=== PATIENT | male | born 1955 | race Caucasian/White ===

== ENCOUNTER → 2021-05-13 08:49 | Outpatient (CLI) | payer BC, SELFPAY ==
--- NOTE | 2021-05-13 08:53 | RAD_ITS ---
STUDY: X-RAY - ESOPHAGUS (BARIUM SWALLOW) WITH FLUOROSCOPY REASON FOR EXAM: Male, 65 years old. DYSPHAGIA. TECHNIQUE: 15 view(s) of the esophagus were obtained following swallowing of barium. FLUOROSCOPY TIME (if supplied): (30 seconds) minutes/seconds COMPARISON: None. FINDINGS: There is no demonstrated esophageal foreign body. There is no demonstrated stricture or mucosal abnormality. Normal gastroesophageal junction, without a demonstrated hiatal hernia. The patient ingested a 12 mm tablet of barium without any difficulty. There is atherosclerotic tortuosity of the aortic arch and descending thoracic aorta. Normal visualized pulmonary parenchyma. Normal visualized osseous structures of the thorax. RAD/Esophagus Single Contrast IMPRESSION: Normal plain film x-ray examination (barium swallow) of the esophagus. Electronically Signed: Carlos Apple MD at 14:30 EST , Service support ,
== END ==
PROVIDERS: PCP Internal Medicine; Referring Provider Internal Medicine; Visit Provider Internal Medicine
DX: R13.19 Other dysphagia (principal)
CPT/HCPCS: 74220

== ENCOUNTER 2022-10-16 06:05 | Day surgery (SDC) | payer BC, SELFPAY ==
[2022-10-16] MEDS: Lactated Ringers 1,000 ML 15 ML IV (06:37)
[2022-10-16 06:38] VITALS: BP 134/90; PULSE 60; RESP 18; TEMP 36.4; O2SAT 98; BMI 28.1
--- NOTE | 2022-10-16 07:10 | HP.PCM_ITS ---
History and Physical Date of Admission: 10/16/22 6 M who presents to the office today to establish with gastroenterology for dysphagia began over a year ago.? Food will stick in the mid to distal esophagus sometimes, he has to sit up straight and follow the food with lots of water.? The food has always passed, no emergency visits for food bolus.? Chicken and pasta are the primary culprits.? He has never regurgitated to get this to pass.? He never has nausea or vomiting.? He never has heartburn or acid reflux.? No pain other than discomfort when the food is stuck.? No cough.? No sense of esophageal spasms.? No abdominal pain.? No early satiety.? Normal appetite.? No weight loss.? He has never been on medication for this dysphagia.? He had a normal esophagram in April 2021.? He has never had an EGD.? No bowel complaints.? He denies diarrhea, constipation, melena, hematochezia. Colonoscopy 01/2020, told to repeat in 5 years Past medical history hypertension, tubular adenoma of colon, remote history of kidney stones, essential tremor Past surgical history cataracts, tonsillectomy ROS Const Constitutional: No fatigue, fever(s), frequent falls, headache(s) or weight change ENT ENT: No headache(s) or difficulty swallowing Cardio Cardiology: No leg pain with exertion Gastro GI: No abdominal pain, bloating, change in bowel habits, constipation, diarrhea, heartburn, difficulty swallowing, Vomiting blood/hematemesis, Blood in stool, nausea/dyspepsia or vomiting Musc Musculoskeletal: No abnormal gait, joint pain, back pain, joint swelling, muscle cramps, muscle weakness, numbness, stiffness, tingling, Arthritis, sciatica, leg pain at night or leg pain with exertion Skin Skin: No dry skin, lesions, itchy eyes or rash Neuro Neurology: No abnormal gait, dizziness, frequent falls, headache(s), numbness, tingling, tremor(s), Increased tone in limbs, paralysis or seizures Psych Psychiatric: No anxiety, No depression, No paranoia, No Behavioral Problems, No Compulsive Behavior, No hyperactivity, No inattentiveness, No obsessions/compulsions, No Temper Tantrums and No suicidal ideation Endo Endocrine: No fatigue or weight change Aller/Imm Allergy/Immunologic: No itchy eyes Jonatan/Lymp Hematologic/Lymphatic: No easy bleeding or easy bruising Exam Const General: cooperative, healthy appearing and comfortable Nutritional Appearance: average body habitus Orientation: alert, awake and oriented x3 HENMT Head: normal to inspection Eyes Sclera: sclerae normal Neck Neck: normal visual inspection Chest Chest palpation & inspection: normal inspection of the chest Resp Effort & Inspection: normal respiratory effort GI Inspection: normal to inspection Neuro Speech: other (there is a tremor to his voice) Quality Reporting Tobacco Screening ([facility]) Smoking Status: Former smoker Assessment and Plan Assessment and Plan (1) Dysphagia: ?Plan: 66-year-old male with chronic dysphagia.? He is scheduled for EGD to evaluate for esophagitis, Schatzki ring, malignancy or other.? We discussed the possibility of starting a PPI now but since he has no symptoms other than the dysphagia, and it is stable, he prefers to wait.? Follow-up 2 weeks after EGD. I have examined the patient and the H&P has been reviewed. There are no clinical changes since date of exam.
--- NOTE | 2022-10-16 07:15 | IMM_PTH ---
PATIENT: WAYNE ESTRADA LOC: EN U#:[id number] AGE/SX: 66/M ROOM: RE10/16/[address]: Dr. Colt Lewis DO : 1955 BED: DIS: 10/16/2022 SPEC #: [id number] RECD: 10/16/22 13:53 STATUS: MIKE REQ #: [id number] ISIDRO: 10/16/22 07:[address]: Colt Lewis DEPT: IMMUNOHISTOCHEMISTRY RECD BY: Nancy Oates ENTERED: 10/16/22 13:54 SP TYPE: IMMUNO OTHR DR: Dr. Prashanth Mcintyre MD Tissues: B - Stomach, NOS Procedures: H Pylori (initial) PHYSICIAN & INSTITUTION [address] [address] SPECIMEN INFORMATION: Tissue Source: B ? Gastric antrum Clinical Info: Dysphagia Specimen Number: [id number] CPT code: 74302 METHODOLOGY: Deparaffinized sections of prefer/formalin-fixed tissue or PAP/DQ stained slides are incubated with monoclonal/polyclonal antibodies/oligonucleotide probes. Localization is made via biotin free immunoperoxidase method. Appropriate controls are performed and reacted as expected. Results on target cell population are indicated in the following table: RESULTS: ANTIBODY / CLONE RESULT Block B H Pylori (polyclonal) negative These tests were developed and their performance characteristics determined by [facility]. They may not have been cleared or approved by the U.S. Food and Drug Administration. The FDA has determined that such clearance or approval is not necessary. The above immunohistochemical/dualISH markers are ordered and reviewed by the Pathologist. INTERPRETATION: B. Gastric antrum, biopsy: Negative for Helicobacter pylori organisms. AM:annemarie 10/17/2022
--- NOTE | 2022-10-16 07:15 | EGD_PTH ---
PATIENT: WAYNE ESTRADA LOC: EN U#:[id number] AGE/SX: 66/M ROOM: RE10/16/[address]: Dr. Colt Lewis DO : 1955 BED: DIS: 10/16/2022 SPEC #: [id number] RECD: 10/16/22 10:41 STATUS: MIKE MEMO #: [id number] ISIDRO: 10/16/22 07:[address]: Colt Lewis DEPT: SURGICAL PATHOLOGY RECD BY: Nury Lee ENTERED: 10/16/22 12:17 SP TYPE: EGD BIOPSY [facility] DR: Dr. Prashanth Mcintyre MD Tissues: A - COLON BIOPSY B - Gastric mucous membrane C - Duodenum, NOS D - Esophagus, NOS Procedures: Special Stain Group II Surgery Specimen Level IV Alcian Blue/PAS (control) HEADER OPERATION: EGD with biopsy and dilation (MAC) PRE-OP DIAGNOSIS: Dysphagia TISSUE SUBMITTED: A ? Lesser curvature biopsy, B ? Gastric antrum for H. pylori and path, C ? Duodenum biopsy, D ? Distal esophagus biopsy MICROSCOPIC DIAGNOSIS A. Lesser curvature of stomach, biopsy: Chronic active gastritis. B. Gastric antrum, biopsy: Chronic gastritis. See comment. C. Duodenum, biopsy: No pathologic change. D. Distal esophagus, biopsy: Gastroesophageal junctional mucosa with chronic inflammation. Focal changes of reflux. No evidence of goblet cell metaplasia. See comment. AM:annemarie 10/17/2022 COMMENT B. The results of immunohistochemistry for Helicobacter pylori will be reported separately ([id number]). D. Alcian blue/PAS stain with matched control supports the above diagnosis. MICROSCOPIC DESCRIPTION Slides are reviewed. GROSS DESCRIPTION A - Received in fixative is one container labeled with the patient's name and designated lesser curvature of stomach. The specimen consists of two irregular fragments of light haque soft tissue that in aggregate measure 0.8 x 0.3 x 0.1 cm. The specimen is totally submitted in one cassette. B - Received in fixative is one container labeled with the patient's name and designated gastric antrum. The specimen consists of two irregular fragments of light haque soft tissue that in aggregate measure 0.6 x 0.6 x 0.1 cm. The specimen is totally submitted in one cassette. C - Received in fixative is one container labeled with the patient's name and designated duodenum biopsy. The specimen consists of one irregular fragment of light haque soft tissue that measures 0.6 x 0.5 x 0.1 cm. The specimen is totally submitted in one cassette. D - Received in fixative is one container labeled with the patient's name and designated distal esophagus. The specimen consists of multiple irregular fragments of light haque soft tissue that in aggregate measure 0.7 x 0.5 x 0.1 cm. The specimen is totally submitted in one cassette. / AM:annemarie 10/16/2022 TC:3 CPT: 41664 x4, 69914
[2022-10-16 07:40] VITALS: BP 122/93; BP 134/90; PULSE 70; RESP 16; TEMP 36.3; O2SAT 94
--- NOTE | 2022-10-16 07:44 | OP.EGD_ITS ---
Patient Name: Aiden Magana Procedure Date: 10/16/2022 7:12 AM Date of : 1955 Age: 66 Procedure: Upper GI endoscopy Indications: Dysphagia Providers: Colt Lewis DO Medicines: Monitored Anesthesia Care Patient Profile: This is a 66 year old male. Refer to note in patient chart for documentation of history and physical. Patient has symptoms. Complications: No immediate complications. Procedure: Pre-Anesthesia Assessment: - Prior to the procedure, a History and Physical was performed, and patient medications and allergies were reviewed. The patient is competent. The risks and benefits of the procedure and the sedation options and risks were discussed with the patient. All questions were answered and informed consent was obtained. Patient identification and proposed procedure were verified by the physician in the pre-procedure area. Mental Status Examination: alert and oriented. Airway Examination: normal oropharyngeal airway and neck mobility. CV Examination: normal. Prophylactic Antibiotics: The patient does not require prophylactic antibiotics. Prior Anticoagulants: The patient has taken no previous anticoagulant or antiplatelet agents. After reviewing the risks and benefits, the patient was deemed in satisfactory condition to undergo the procedure. The anesthesia plan was to use monitored anesthesia care (MAC). Immediately prior to administration of medications, the patient was re-assessed for adequacy to receive sedatives. The heart rate, respiratory rate, oxygen saturations, blood pressure, adequacy of pulmonary ventilation, and response to care were monitored throughout the procedure. The physical status of the patient was re-assessed after the procedure. After obtaining informed consent, the endoscope was passed under direct vision. Throughout the procedure, the patient's blood pressure, pulse, and oxygen saturations were monitored continuously. The Endoscope was introduced through the mouth, and advanced to the second part of duodenum. The upper GI endoscopy was accomplished without difficulty. The patient tolerated the procedure well. Scope In: 7:24:13 AM Scope Out: 7:33:49 AM Total Procedure Duration Time 0 hours 9 minutes 36 seconds Findings: A non-bleeding diverticulum with a small opening and no stigmata of recent bleeding was found at the cricopharyngeus. One benign-appearing, intrinsic stenosis was found 20 to 21 cm from the incisors. This stenosis was moderately severe and. The stenosis was traversed. LA Grade B (one or more mucosal breaks greater than 5 mm, not extending between the tops of two mucosal folds) esophagitis with no bleeding was found 36 to 39 cm from the incisors. Biopsies were taken with a cold forceps for histology. Verification of patient identification for the specimen was done. Estimated blood loss was minimal. Patchy moderate inflammation characterized by erosions, erythema, friability and aphthous ulcerations was found in the gastric body, on the lesser curvature of the stomach and in the gastric antrum. Biopsies were taken with a cold forceps for histology. Verification of patient identification for the specimen was done. Estimated blood loss was minimal. Patchy moderate inflammation characterized by erosions and erythema was found in the duodenal bulb. Biopsies were taken with a cold forceps for histology. Verification of patient identification for the specimen was done. Estimated blood loss was minimal. 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 - Benign-appearing esophageal stenosis. - LA Grade B reflux esophagitis. Biopsied. - Chronic gastritis. Biopsied. - Duodenitis. Biopsied. Recommendation: - Discharge patient to home. - Resume previous diet. - Continue present medications. - Await pathology results. Procedure Code(s): --- Professional --- 22942, Esophagogastroduodenoscopy, flexible, transoral; with biopsy, single or multiple CPT copyright 2017 [employer]. All rights reserved. The codes documented in this report are preliminary and upon university extension specialist review may be revised to meet current compliance requirements. Colt Lewis DO 10/16/2022 7:44:18 AM This report has been signed electronically. Number of Addenda: 0 Note Initiated On: 10/16/2022 7:12 AM
[2022-10-16 07:45] VITALS: BP 134/90; BP 141/92; PULSE 75; RESP 16; O2SAT 95
--- NOTE | 2022-10-16 07:45 | OP.CCLET_ITS ---
10/16/2022 Prashanth Mcintyre [address] [place] [address] Re : Upper GI endoscopy procedure for Aiden Magana Dear Dr. Mcintyre This procedure was performed on October. 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 - Benign-appearing esophageal stenosis. - LA Grade B reflux esophagitis. Biopsied. - Chronic gastritis. Biopsied. - Duodenitis. Biopsied. Recommendations : - Discharge patient to home. - Resume previous diet. - Continue present medications. - Await pathology results. My findings are described in the full procedure note, which is enclosed. If I can be of further assistance, please feel free to contact me at . Sincerely, Colt Lewis, 10/16/2022 7:44:18 AM This report has been signed electronically.
[2022-10-16 07:50] VITALS: BP 134/90; BP 135/95; PULSE 72; RESP 16; O2SAT 97
[2022-10-16 07:55] VITALS: BP 134/90; BP 141/91; PULSE 67; RESP 16; TEMP 36.1; O2SAT 94
[2022-10-16 08:20] VITALS: BP 134/90
== END 2022-10-16 08:23 | disposition home or self-care (01) ==
LOC: EN 06:06 → AC 06:07
PROVIDERS: PCP Internal Medicine; Referring Provider Internal Medicine Gastroenterology; Visit Provider Internal Medicine Gastroenterology
PROC: 0DJ08ZZ Inspection of Upper Intestinal Tract, Via Natural or Artificial Opening Endoscopic (ICD-10-PCS; CPT 43235; principal; 2022-10-16 07:10)
DX: K22.2 Esophageal obstruction (principal); Z87.891 Personal history of nicotine dependence; K29.50 Unspecified chronic gastritis without bleeding; R13.10 Dysphagia, unspecified; K21.00 Gastro-esophageal reflux disease with esophagitis, without bleeding; K29.80 Duodenitis without bleeding; I10 Essential (primary) hypertension
CPT/HCPCS: 43239; 88305; 88313; 88342; J7120

== ENCOUNTER 2025-04-03 03:06 | Emergency (ER) | payer MEDICARE, SELFPAY ==
[2025-04-03 03:07] VITALS: BP 147/97; PULSE 80; RESP 16; TEMP 36.6; O2SAT 98; BMI 26.3
--- NOTE | 2025-04-03 03:23 | CT_ITS ---
PROCEDURE: ABDOMEN/PELVIS W IV CONT ONLY 04/03/2025 REASON FOR EXAM: LOWER ABD PAIN TECHNIQUE: Procedure Code: [id number] Modality: CT Procedure: ABDOMEN/PELVIS W IV CONT ONLY Coronal and Sagittal reconstruction series were provided. CONTRAST: OMNIPAQUE 350 VOLUME: 100 mL One or more dose reduction techniques were used (e.g., Automated exposure control, adjustment of the mA and/or kV according to patient size, use of iterative reconstruction technique. RADIATION DOSE SUMMARY: CTDlvol: 20.05 mGy DLP: 1107 mGycm COMPARISON: None. FINDINGS: Diffuse colonic diverticulosis. Thickening of the mid aspect of the sigmoid colon suggestive of acute diverticulitis without perforation or abscess formation. Mild prostatomegaly. Mild diffuse thickening of the bladder, probably chronic bladder outlet obstruction versus cystitis. Scattered calcified splenic granulomas are noted. Diffuse thickening of the stomach, probably gastritis. Fat containing umbilical hernia without incarceration. 3 mm left renal nonobstructing stone. The visualized lung bases are unremarkable. Normal liver. Normal gallbladder and extrahepatic biliary system. Normal pancreas. Normal bilateral adrenal glands. Normal size of the right kidney. There is no right renal mass. There are no right renal calculi. There is no right hydronephrosis. Normal visualized right ureter. Normal size of the left kidney. There is no left renal mass. There is no left hydronephrosis. Normal visualized left ureter. Normal small intestine. The appendix is visualized and appears normal. There is no demonstrated peritoneal fluid. Mild calcified atheromatous plaques of the abdominal aorta. Normal inferior vena cava. Normal retroperitoneum. There is no pelvic mass lesion or lymphadenopathy. There is no pelvic fluid. Mild diffuse spondylosis. CT/Abdomen/Pelvis W IV Cont ONLY IMPRESSION: Diffuse colonic diverticulosis. Thickening of the mid aspect of the sigmoid colon suggestive of acute diverticu litis without perforation or abscess formation. Mild prostatomegaly. Mild diffuse thickening of the bladder, probably chronic bladder outlet obstruc tion versus cystitis. Scattered calcified splenic granulomas are noted. Diffuse thickening of the stomach, probably gastritis. Fat containing umbilical hernia without incarceration. 3 mm left renal nonobstructing stone. Reading [facility] [address]
--- NOTE | 2025-04-03 03:23 | EDS_ITS ---
HPI HPI - GI History of Present Illness Chief Complaint: Abd Pain Narrative Narrative: Patient is a 69-year-old male presenting to the emergency department for lower abdominal pain that started yesterday. Patient has a past medical history of hypertension, hyperlipidemia, esophageal dysphagia, reflux esophagitis and tubular adenoma of the colon. Patient states that the pain is constant however will wax and wane and become worse at times. He endorses chills. Denies fever. Denies chest pain, shortness of breath, nausea, vomiting, dysuria or hematuria. Denies any scrotal swelling, redness or pain. Denies any penile swelling or discharge. Reports his last bowel movement was yesterday and has not had a bowel movement today but states that his bowel movement yesterday was normal. States that he is here now because he could not get comfortable when trying to go to sleep which caused him to want to be evaluated. Denies taking anything for pain prior to arrival. Denies any history of abdominal surgeries in the past. [facility] Medical History Wears glasses High cholesterol Difficulty swallowing Non-smoker Leg cramps History of irregular heartbeat History of rheumatic fever HTN (hypertension) HLD (hyperlipidemia) Frequent headaches Essential tremor Calculus of kidney Tubular adenoma of colon Esophageal dysphagia Home Medications ?Medication ?Instructions ?Recorded ?Last Taken ?Type atorvastatin 20 mg tablet 20 mg PO DAILY 05/19/22 Unkn own History doxazosin 1 mg tablet (Cardura) 1 mg PO DAILY 05/19/22 Unknown History lisinopril 5 mg tablet 5 mg PO DAILY 05/19/22 Unkno wn History lutein 20 mg capsule 20 mg PO DAILY 05/19/22 Unkn own History multivitamin 1 tab PO DAILY 05/19/22 Unkn own History omega-3 fatty acids 1,000 mg 1,000 mg PO DAILY 2 10/11/22 History capsule propranolol 10 mg tablet 10 mg PO BID 05/19/22 Unknow n History pantoprazole 40 mg tablet,delayed 40 mg PO BID #60 tab s 10/16/22 Unknown Rx release amoxicillin 875 mg-potassium 1 tab PO Q12H 7 days #14 tabs 04/03/25 Unknown Rx clavulanate 125 mg tablet Allergy/AdvReac Type Severity Reaction Status Date / Time No Known Allergies Allergy Verified 04/03/25 03:06 Family History Mother Hypertension Father Hypertension Prostate cancer Brother Hypertension Diabetes CAD (coronary artery disease) Afib Uterine fibroid Surgical History Hx of colonoscopy Hx of tonsillectomy H/O bilateral cataract extraction Social History Smoking Status: Former smoker alcohol intake: never substance use type: does not use caffeine: No ROS ROS ED ROS Narrative see HPI EXAM Physical Exam Narrative Exam Narrative: Vital signs: Reviewed General: Alert and orientedx3. No acute distress HEENT: Head is normocephalic and atraumatic, sinuses nontender, pupils equal round and reactive. Nares are patent. Oropharynx and throat exams normal. Neck: Supple without lymphadenopathy nontender Cardiovascular: Regular rate and rhythm, no murmurs. No rubs or gallops. Normal S1 and S2 Respiratory: Clear to auscultation bilaterally. No wheezes, rales, rhonchi Abdominal: Soft and mildly tender to palpation in suprapubic and RLQ. Normal bowel sounds. No guarding or rebound. Nonsurgical abdomen Extremities: No tenderness. No bruising. Normal range of motion. Normal sensation. Skin: No rash or redness. Neurological: Cranial nerves II through XII are grossly intact. Normal strength and sensation. Normal cerebellar function The rest of the physical exam is unremarkable Const Vital Signs: 04/03/25 03:07 Temperature 97.8 F Temperature Source Oral Pulse Rate 80 Respiratory Rate 16 Blood Pressure 147/97 H Blood Pressure Mean 113 Pulse Ox 98 Oxygen Delivery Method Room Air MDM MDM MDM Narrative Medical decision making narrative: Patient is a 69-year-old male presenting the emergency department for abdominal pain for 1 day. Patient was seen and examined. Vitals are stable. Patient resting in bed comfortably no acute distress. Differential includes but is not limited to: Appendicitis, UTI, colitis, diverticulitis, obstruction Patient given Toradol for pain control. Labs and CT imaging given patient's age and tenderness on exam were obtained. CBC with mild leukocytosis of 13 and normal hemoglobin. CMP with no significant abnormalities. Lipase within normal limits. CT of the abdomen pelvis shows diffuse colonic diverticulosis. Thickening of the mid aspect of the sigmoid colon suggestive of acute diverticulitis without perforation or abscess formation. Mild prostatomegaly. Mild diffuse thickening of the bladder, probably chronic bladder outlet obstruction versus cystitis. Scattered calcified splenic granulomas are noted. Diffuse thickening of the stomach, probably gastritis. Fat containing umbilical hernia without incarceration. 3 mm left renal nonobstructing stone. Patients lower abd pain likely caused by his diverticulitis. Will be placed on Augmentin. Urinalysis shows no evidence of UTI. Patient and family at bedside updated on the lab and imaging findings. Stable for outpatient management for simple uncomplicated diverticulitis with mild leukocytosis. Well-appearing, nontoxic. Verified with patient that he is taking pantoprazole but states he is taking it once a day I recommend taking it twice a day and following up with GI. Patient discharged from the Emergency Department. I do not feel that the patient's evaluation reveals any acute reason for admission at this time. I instructed them to either follow-up with their primary care physician or promptly return to the Emergency Department for reevaluation should symptoms worsen or new symptoms develop. I explained what symptoms would indicate the need to return to the emergency department. Shared decision making was used. The patient voiced understanding of the treatment plan and is agreeable with it. Clinical impression Diverticulitis Gastritis History & Record Review Discussion w/independent historian: Patient and Family Lab Data Attestation: I reviewed the patient's lab results. Labs: Laboratory Results - last 24 hr 04/03/25 04/03/25 03:10 04:35 WBC 13.0 H RBC 4.86 Hgb 15.0 Hct 42.8 MCV 88.1 MCH 30.9 MCHC 35.0 RDW Std Deviation 38.6 RDW Coeff of Mck[place] 11.9 Plt Count 214 MPV 10.7 Immature Gran % (Auto) 0.200 Neut % (Auto) 80.4 H Lymph % (Auto) 8.9 L [place] % (Auto) 8.9 Eos % (Auto) 1.1 Baso % (Auto) 0.5 Absolute Neuts (auto) 10.5 H Absolute Lymphs (auto) 1.16 Nucleated RBC % 0 Sodium 137 Potassium 3.9 Chloride 102 Carbon Dioxide 22.6 Anion Gap 13 BUN 17 Creatinine 0.95 Estim Creat Clear Calc 75.96 Est GFR (MDRD) Non-Af 86 BUN/Creatinine Ratio 17.5 Glucose 144 H Calcium 9.1 Total Bilirubin 0.97 AST 20 ALT 32 Alkaline Phosphatase 69 Total Protein 6.8 Albumin 4.3 Globulin 2.6 Albumin/Globulin Ratio 1.7 Lipase 32 Urine Color Yellow Urine Clarity Clear Urine pH 6.0 Ur Specific [place] 1.010 Urine Protein 30 H Urine Glucose (UA) Normal Urine Ketones Negative Urine Occult Blood 10 H Urine Nitrite Negative Urine Bilirubin Negative Urine Urobilinogen Normal Ur Leukocyte Esterase Negative Urine RBC 0 SEEN Urine WBC 0-5 SEEN Ur Squamous Epith Cells 0-5 SEEN Urine Bacteria 0 SEEN Urine Mucus 0 SEEN Radiography Diagnostic Testing: Clinical Impression(s) from Imaging Studies Abdomen/Pelvis CT 04/03/25 03:23 IMPRESSION: Diffuse colonic diverticulosis. Thickening of the mid aspect of the sigmoid colon suggestive of acute diverticulitis without perforation or abscess formation. Mild prostatomegaly. Mild diffuse thickening of the bladder, probably chronic bladder outlet obstruction versus cystitis. Scattered calcified splenic granulomas are noted. Diffuse thickening of the stomach, probably gastritis. Fat containing umbilical hernia without incarceration. 3 mm left renal nonobstructing stone. Reading Location: [place] [id number] Discharge Plan Triage Chief Complaint: Abd Pain ED Provider: Marychuy Lin Dx/Rx/DC Orders Clinical Impression: Diverticulitis, Gastritis Instructions: Diverticulitis Dc, ED Gastritis (Adult) Prescriptions: New amoxicillin-pot clavulanate 875-125 mg tablet 1 tab PO Q12H 7 Days Qty: 14 0RF No Action lisinopril 5 mg tablet 5 mg PO DAILY atorvastatin 20 mg tablet 20 mg PO DAILY doxazosin [Cardura] 1 mg tablet 1 mg PO DAILY multivitamin Tablet 1 tab PO DAILY omega-3 fatty acids 1,000 mg capsule 1,000 mg PO DAILY lutein 20 mg capsule 20 mg PO DAILY Rx Instructions: give with meal/snack propranolol 10 mg tablet 10 mg PO BID pantoprazole 40 mg tablet,delayed release (DR/EC) 40 mg PO BID Qty: 60 3RF Primary Care Provider: Prashanth Mcintyre Referrals: Prashanth Mcintyre MD [Primary Care Provider, Internal Medicine] - As soon as possible Activity Restrictions/Additional Instructions: Take the antibiotic as prescribed. Your evaluation in the Emergency Department did not reveal any acute reason for admission. However, I want to emphasize that you may be early in the course of a disease process or illness even if it is not present. For this reason you should follow-up within 24 hours for reevaluation with either your primary care physician or if necessary back here in the Emergency Department. You should return to the Emergency Department immediately if your symptoms worsen or new symptoms develop. Print Language: Colombian Disposition Disposition: Home, Self Care
[2025-04-03 03:36] LABS: Hematocrit 42.8 % (40-54); Hemoglobin 15.0 g/dL (13.0-16.5); Immature Granulocytes Count 0.030 X10^3/uL (0.0-0.0); Mean Corp Hgb Conc 35.0 g/dL (32-36); Mean Corpuscular Volume 88.1 fL (80-94); Mean Platelet Vol. 10.7 fl (6.2-12.0); NRBC Flagged by Analyzer 0 % (0-5); Platelet Count 214 K/mm3 (150-450); RBC Distribution Width CV 11.9 % (11.6-14.6); RBC Distribution Width SD 38.6 fl (35.1-43.9); Red Blood Count 4.86 M/mm3 (4.6-6.2); White Blood Count 13.0 K/mm3 (4.4-11.0)
[2025-04-03 03:48] LABS: AST(SGOT) 20 U/L (<=37); Alanine Aminotransfer ALT/SGPT 32 U/L (<=46); Albumin, Serum 4.3 g/dL (3.4-4.8); Alkaline Phosphatase 69 U/L (40-129); Anion Gap 13 (5-15); BUN 17 mg/dL (4-19); BUN/Creat Ratio 17.5 RATIO (10-20); Calcium,Total 9.1 mg/dL (7.6-11.0); Carbon Dioxide 22.6 mmol/L (21.0-32.0); Chloride 102 mmol/L (98-108); Estimated Creatinine Clearance 75.96 ml/min (50-250); Globulin 2.6 g/dL (2.2-4.2); Glucose 144 mg/dL (70-99); Lipase 32 U/L (13-75); Potassium 3.9 mmol/L (3.3-5.1)
--- OUTSIDE RECORDS SUMMARY | 2025-04-03 04:12 | XMS RPT_ITS | CCD ---
Author Organization [facility] Care Team Providers [employer] Professional Name Role Phone Prashanth Mcintyre MD Primary Care Provider [phone] Dr. Prashanth Mcintyre Primary Care Provider Dr. Prashanth Mcintyre Referring Provider Juan MAGNETIC TAPE COMPOSER OPERATOR, MAGNETIC TAPE COMPOSER OPERATOR-C Ivania Garg Attending Provider [phone] FriendDr. Gregory Attending Provider [phone] Colt Lewis Referring Provider [phone] Colt Lewis Other Provider [phone] FriendColt Referring Unavailable Colt Lewis Attending Unavailable Colt Lewis Consulting Unavailable Prashanth Mcintyre Primary Care Unavailable Ivania Martinez NP Attending Unavailable Prashanth Mcintyre Referring Unavailable Prashanth Mcintyre Primary Care Unavailable Colt Lewis Referring Unavailable Colt Lewis Attending Unavailable Prashanth Mcintyre Primary Care Unavailable Prashanth Mcintyre Primary Care Unavailable Ivania Martinez NP Attending Unavailable Prashanth Mcintyre Referring Unavailable Prashanth Mcintyre MD Primary Care Provider Prashanth Mcintyre MD Primary Care Provider NIECY ADAM Attending Unavailab le PRASHANTH MCINTYRE Primary Care Unavailable NIECY ADAM Attending Unavailab le PRASHANTH MCINTYRE Primary Care Unavailable WILFREDO HARDING Attending Unavailable NIECY ADAM Referring Unavailab le PRASHANTH MCINTYRE Primary Care Unavailable AGUILA BARRON Admitting Unavail able Prashanth Mcintyre MD Primary Care Provider Kenny EXTRUSION SUPERVISOR.LINE ASSEMBLER AIRCRAFT, Anna Garg Unavailable PRASHANTH MCINTYRE Primary Care Unavailable SHABANA JIMENEZ Attending Unavailable PRASHANTH MCINTYRE Referring Unavailable EMMY DE LEON Attending Unavailable PRASHANTH MCINTYRE Primary Care Unavailable CLAYTON, PRASHANTH Maldonado Referring Unavailable CLAYTON, PRASHANTH Maldonado Primary Care Unavailable PRASHANTH MCINTYRE Attending Unavailable PRASHANTH MCINTYRE Primary Care Unavailable ANNA CRUZ Attending Unavailable PRASHANTH MCINTYRE Primary Care Unavailable PRASHANTH MCINTYRE Primary Care Unavailable PRASHANTH MCINTYRE Referring Unavailable CLAYTON, PRASHANTH Maldonado Referring Unavailable PRASHANTH MCINTYRE Primary Care Unavailable Medications Current Medications Medication Drug Class(es) Dates Sig (Normalized) Sig (Original) atorvastatin 20 mg oral tablet (20 sources) HMG-CoA Reductase Inhibitor Start: 01-06-2023 End: 12-13-2024 take 1 tablet by mouth once daily at bedtime for hyperlipidemia atorvastatin (LIPITOR) 20 mg tablet Indications: Mixed hyperlipidemia Take 1 tablet by mouth daily at bedtime. For cholesterol. 90 tablet 3 12/13/2024 Active Start: 01-23-2021 End: 10-13-2022 take 1 tablet by mouth once daily at bedtime for hyperlipidemia atorvastatin (LIPITOR) 20 mg tablet Indications: Mixed hyperlipidemia Take 1 tablet by mouth daily at bedtime. For cholesterol. 90 tablet 3 10/13/2022 Active Comment on above: Take 1 tablet by candelario th daily at bedtime. For cholesterol. ciprofloxacin 500 mg oral tablet (7 sources) Quinolone Antimicrobial Start: 11-22-19 End: 12-14-19 take 1 tablet by mouth twice daily ciprofloxacin HCl (CIPRO) 500 MG tablet Take 1 (one) tablet (500 mg total) by mouth 2 (two) times a day for 9 days . 18 tablet 0 11/22/2023 11/22/2023 Discontinued Start: 11-20-2023 End: 11-22-2023 take 400 mg intravenously every twelve hours 400 mg, Intravenous, at 200 mL/hr, Every 12 hours, First dose on Thu11/20/23 at 2000, Indication: Community Acquired Intra-abdominal Infections doxazosin 1 mg oral tablet (3 sources) alpha-Adrenergic Adam Start: 11-05-2021 End: 05-23-2022 take 1 tablet by mouth once daily Doxazosin (Cardura) 1 mg tablet Active 1 MG PO DAILY May 19, 2022 1:00am Comment on above: Take 1 tablet by candelario once daily. lisinopril 5 mg oral tablet (19 sources) Angiotensin Converting Enzyme Inhibitor Start: 01-31-2021 End: 12-13-2024 take 1 tablet by mouth once daily lisinopril (ZESTRIL) 5 mg tablet Indications: Essential hypertension Take 1 tablet by mouth once daily. 90 tablet 3 12/13/2024 Active Comment on above: Take 1 tablet by candelario once daily. lutein 20 mg oral capsule (15 sources) Start: 03-15-2013 take 1 capsule by mouth once daily Lutein 20 mg cap Indications: Other and unspecified hyperlipidemia Take 1 capsule by mouth once daily. 30 capsule 11 03/15/2013 Active Comment on above: Take 1 capsule by mo [facility] once daily. metroNIDAZOLE 500 mg oral tablet (4 sources) Nitroimidazole Antimicrobial Start: 11-22-2023 End: 12-01-2023 take 1 tablet by mouth three times daily at mealtime metroNIDAZOLE (FLAGYL) 500 MG tablet Take 1 (one) tablet (500 mg total) by mouth 3 (three) times a day with meals for 9 days . 27 tablet 0 11/22/2023 11/22/2023 Discontinued Start: 11-21-2023 End: 11-22-2023 take 500 mg intravenously every eight hours 500 mg, Intravenous, at 200 mL/hr, Every 8 hours, First dose on 11/21/23 at 0000, DO NOT REFRIGERATE, Indication: High Risk or Severity Community or Hosp Acquired Intra-abdominal Infections Multivitamin preparation (1 source) Start: 05-19-2022 take 1 tablet by mouth once daily Multivitamin Active 1 TABLET PO DAILY May 19, 2022 1:00am Multivitamins-Mine rals-Lutein (CENTRUM SILVER) tab (14 sources) Start: 04-27-2014 take 1 tablet by mouth once daily Multivitamins-Minerals -Lutein (CENTRUM SILVER) tab Indications: Other and unspecified hyperlipidemia Take 1 tablet by mouth once daily. 30 tablet 11 04/27/2014 Active Comment on above: Take 1 tablet by candelario once daily. [place]-3 Fatty Acids (1 source) Start: 05-19-2022 take 1000 mg by mouth once daily [place]-3 Fatty Acids Active 1000 MG PO DAILY May 19, 2022 1:00am [place]-3 Fatty Acids-Vitamin E (FISH OIL) 1,000 mg cap (14 sources) Start: 04-11-2013 take 1 capsule by mouth once daily [place]-3 Fatty Acids-Vitamin E (FISH OIL) 1,000 mg cap Indications: Other and unspecified hyperlipidemia Take 1 capsule by mouth once daily. 30 capsule 11 04/11/2013 Active Comment on above: Take 1 capsule by [facility] once daily. pantoprazole 40 mg delayed release oral tablet (14 sources) Proton Pump Inhibitor Start: 01-06-2023 End: 12-13-2024 take 1 tablet by mouth twice daily before mealtime pantoprazole DR (PROTONIX) 40 mg tablet Indications: Gastroesophageal reflux disease with esophagitis without hemorrhage Take 1 tablet by mouth two times a day. Take on empty stomach, 1/2 hr before meal. 180 tablet 3 12/13/2024 Active Start: 11-18-2022 take 1 tablet by [facility] twice daily before mealtime pantoprazole DR (PROTONIX) 40 mg tablet Indications: Gastroesophageal reflux disease with esophagitis without hemorrhage , Esophageal dysphagia Take 1 tablet by mouth twice daily. Take on empty stomach, 1/2 hr before meal. 0 11/18/2022 Active Start: 10-16-2022 take 40 mg by mouth twice daily Pantoprazole Active 40 MG PO TWICE A DAY 60 October 16, 2022 12:00am Comment on above: Take 1 tablet by [facility] twice daily. Take on empty stomach, 1/2 hr before meal. polyethylene glycol 3350 807923 mg / potassium chloride 2980 mg / sodium bicarbonate 6720 mg / sodium chloride 5840 mg / sodium sulfate 43347 mg powder for oral solution (1 source) Osmotic Laxative Start: End: peg 3350-electrolytes (GAVILYTE-C) 240-22.72-6.72 -5.84 gram solution Indications: Special screening for malignant neoplasms, colon Take 4,000 mL by mouth one time only for 1 dose. 4000 mL 12/13/2024 12/13/2024 Active propranolol hydrochloride 10 mg oral tablet (17 sources) beta-Adrenergic Adam Start: End: take 1 tablet by mouth twice daily propranolol (INDERAL) 10 mg tablet Indications: Essential tremor Take 1 tablet by mouth two times a day. 180 tablet 3 12/13/2024 Active Start: 05-14-2022 take 1 tablet by candelario th twice daily propranolol (INDERAL) 10 mg tablet Indications: Essential hypertension , Essential tremor Take 1 tablet by mouth twice daily. 180 tablet 3 07/15/2022 Active Start: 01-23-2021 take 1 tablet by candelario th three times daily propranolol (INDERAL) 10 mg tablet Indications: Essential hypertension , Essential tremor Take 1 tablet by mouth three times daily. 270 tablet 3 01/23/2021 Active Comment on above: Take 1 tablet by candelario th three times daily. Take 1 tablet by candelario th twice daily. Completed/Discontinued Medications Medication Drug Class(es) Dates Sig (Normalized) Sig (Original) calcium chloride 0.0014 meq/ml / potassium chloride 0.004 meq/ml / sodium chloride 0.103 meq/ml / sodium lactate 0.028 meq/ml injectable solution (2 sources) Start: 02-21-2025 End: 02-21-2025 take 30 mL intravenously every hour 30 mL/hr, INTRAVENOUS, CONTINUOUS, Starting on Thu02/21/25 at 0730, Until Thu02/21/25 at 0809, Preprocedure Start: 11-20-2023 End: 11-22-2023 take 100 mL intravenously every hour 100 mL/hr, Intravenous, Continuous, Starting on Thu11/20/23 at 1930 diphenhydrAMINE (1 source) Histamine-1 Receptor Antagonist Start: 02-21-2025 End: 02-21-2025 12.5-50 mg, INTRAVENOUS, DIRECTED, Starting on Thu02/21/25 at 0800, Until Thu02/21/25 at 1159, DOSING DIRECTED BY PHYSICIAN FOR PROCEDURAL SEDATION ONLY, Intraprocedure 1 ml fentaNYL 0.05 mg/ml injection (1 source) Opioid Agonist Start: 02-21-2025 End: 02-21-2025 25-100 mcg, INTRAVENOUS, DIRECTED, Starting on Thu02/21/25 at 0800, Until Thu02/21/25 at 1159, DOSING DIRECTED BY PHYSICIAN FOR PROCEDURAL SEDATION ONLY, Intraprocedure 1 ml heparin sodium, porcine 5000 unt/ml injection (1 source) Unfractionated Heparin, Anti-coagulant Start: 11-20-2023 End: 11-22-2023 inject 5000 [IU] by subcutaneous injection every eight hours 5,000 Units, Subcutaneous, Every 8 hours scheduled, First dose on Thu11/20/23 at 2200, Notify physician if patient refuses. 5 ml midazolam 1 mg/ml injection (1 source) Benzodiazepine Start: 02-21-2025 End: 02-21-2025 1-5 mg, INTRAVENOUS, DIRECTED, Starting on Thu02/21/25 at 0800, Until Thu02/21/25 at 1159, DOSING DIRECTED BY PHYSICIAN FOR PROCEDURAL SEDATION ONLY, Intraprocedure ondansetron (ZOFRAN-ODT) disintegrating tablet 4 mg (1 source) Start: 11-20-2023 End: 11-22-2023 take 1 tablet by mouth every six hours as needed for nausea and vomiting ondansetron (ZOFRAN-ODT) disintegrating tablet 4 mg Sodium Chloride (1 source) Start: 11-20-2023 End: 11-22-2023 sodium chloride (PF) (NS) flush 5 mL Problems Active Problems Problem Classification Problem Date Documented Date Episodic/Chronic Disorders of lipid metabolism (20 sources) Mixed hyperlipidemia; Translations: [Mixed hyperlipidemia] Onset: 06-01-2007 Chronic Esophageal disorders (16 sources) Esophageal obstruction; Translations: [Gastro-esophageal reflux disease with esophagitis] Onset: 10-21-2022 Chronic Esophageal disorders (1 source) Esophageal disorders; Translations: [Gastroesophageal reflux disease with esophagitis without hemorrhage] Onset: 11-18-2022 Essential hypertension (19 sources) Essential hypertension; Translations: [Essential (primary) hypertension] Onset: 05-27-2007 08-06-2018 Chronic Hyperplasia of prostate (15 sources) Benign prostatic hypertrophy with outflow obstruction; Translations: [Benign prostatic hyperplasia with lower urinary tract symptoms] Onset: 05-02-2021 05-02-2021 Chronic Immunizations and screening for infectious disease (8 sources) Patient encounter status; Translations: [Encounter for immunization] 05-22-2023 Episodic Noninfectious gastroenteritis (7 sources) Colitis; Translations: [Noninfective gastroenteritis and colitis, unspecified] Onset: 11-20-2023 11-20-2023 Episodic Other and unspecified benign neoplasm (1 source) Tubular adenoma of colon; Translations: [Benign neoplasm of colon, unspecified] 02-27-2025 Episodic Other and unspecified benign neoplasm (1 source) Hyperplastic polyp of large intestine; Translations: [Polyp of colon] 02-27-2025 Episodic Other and unspecified benign neoplasm (1 source) Benign neoplasm of colon, unspecified; Translations: [Tubular adenoma of colon] Onset: 02-28-2025 Episodic Other and unspecified benign neoplasm (1 source) Polyp of colon; Translations: [Hyperplastic colonic polyp, unspecified part of colon] Onset: 02-28-2025 Episodic Other ear and sense organ disorders (1 source) Hearing loss; Translations: [Unspecified hearing loss, unspecified ear] Chronic Other ear and sense organ disorders (1 source) Impacted cerumen in left ear; Translations: [Impacted cerumen, left ear] Episodic Other hereditary and degenerative nervous system conditions (17 sources) Essential tremor; Translations: [Essential tremor] Onset: 02-12-2018 02-12-2018 Chronic Other hereditary and degenerative nervous system conditions (1 source) Essential tremor; Translations: [Essential tremor] Onset: 02-12-2018 Chronic Other lower respiratory disease (2 sources) Dyspnea on exertion; Translations: [Other forms of dyspnea] 12-13-2024 Episodic Other screening for suspected conditions (not mental disorders or infectious disease) (1 source) Encounter for screening for malignant neoplasm of colon; Translations: [Special screening for malignant neoplasms, colon] Onset: 02-21-2025 Episodic Viral infection (2 sources) COVID-19; Translations: [COVID-19] Onset: 04-02-2023 Past or Other Problems Problem Classification Problem Date Documented Da te Episodic/Chronic Diabetes mellitus without complication (10 sources) Impaired fasting glycemia; Translations: [Impaired fasting glucose] Onset: 05-23-2023 05-23-2023 Episodic Headache; including migraine (7 sources) Headache; Translations: [Headache] Onset: 05-27-2007 Resolved: 04-05-2010 04-05-2010 Episodic Other and unspecified benign neoplasm (14 sources) Benign neoplasm of colon; Translations: [Benign neoplasm of colon, unspecified] Onset: 10-12-2009 10-12-2009 Episodic Other bone disease and musculoskeletal deformities (14 sources) Osteopenia; Translations: [Other specified disorders of bone density and structure, unspecified site] Onset: 02-12-2018 02-12-2018 Episodic Other gastrointestinal disorders (16 sources) Esophageal dysphagia; Translations: [Other dysphagia] Onset: 05-02-2021 Resolved: 05-24-2024 05-02-2021 Episodic Other lower respiratory disease (1 source) Other forms of dyspnea; Translations: [REEDER (dyspnea on exertion)] Onset: 12-13-2024 Episodic Unclassified (2 sources) Patient encounter status 12-13-2024 Results Test Name Value Interpretation Reference Range Facility STRESS ECHO TREADMILLon 03-15 STRESS ECHO TREADMILL Stress Hole Digger Operator Report: Stress Echo [facility] Date of service: 03/27/2025 11:18:15 AM Supervising physician: Elver Pittman MD PATIENT: Name: MR. AIDEN ESTRADA Age: 69 years Gender: M The supervising physician was in the department and immediately available. Final -- Echocardiography Report: Stress Echo [facility] Date of service: 03/27/2025 11:18:15 AM SAW FILER Ordering physician: PRASHANTH MCINTYRE Exam indication: REEDER Technologist: Maribel Noriega [facility] Interpreting physician: Elver Pittman MD PATIENT: Name: MR. AIDEN ESTRADA : 1955 Age: 69 years Gender: M History of hypertension and dyslipidemia. Height: 176.50 cm BSA: 2.04 m Weight: 84.80 kg BMI: 27.2 kg/m Heart rate 58 bpm Blood pressure 132/82 mmHg Technically difficult exam due to body habitus. Color Doppler was utilized to interrogate the cardiac valves assessed and spectral Doppler was utilized to determine the flow velocities and pressure gradients reported in this exam. MEASUREMENTS: Value Indexed Normal Max aortic dimension 3.2 cm Ao < 3.8 Left atrial volume 47 ml (biplane A-L) 23 ml/m Marcy <= 34 LV ID (diastole) 3.7 cm (2D) 1.81 cm/m LV ID (systole) 2.4 cm (2D) 1.17 cm/m IVS, leaflet tips 1.1 cm (2D) Posterior wall thickness 1.1 cm (2D) Left ventricular mass 133 g (2D) 65 g/m LV stroke volume 47 ml (2D biplane) LV end diastolic volume 76 ml (2D biplane) 37.4 ml/m 34<=EDVi<75 LV end systolic volume 30 ml (2D biplane) 14.6 ml/m Ejection Fraction 61 % (2D biplane) EF > 52 FINDINGS: LEFT VENTRICLE The left ventricle is normal in size. Left ventricular systolic function is normal. Grade I left ventricular diastolic dysfunction. Mitral annular lateral E/e': 6.2. Mitral annular septal E/e': 10.3. Wall Motion: Rest: All scored segments are normal. Stress: RIGHT VENTRICLE The right ventricle is normal in size. Right ventricular systolic function is normal. RV systolic tissue Doppler velocity is 12.0 cm/s. Tricuspid annular displacement is 1.8 cm. LEFT ATRIUM The left atrial cavity is normal in size. RIGHT ATRIUM The right atrial cavity is normal in size (RA area = 12.8 cm ). MITRAL VALVE The mitral valve leaflets are structurally normal. There is trace (trace - 1+) mitral valve regurgitation. The pressure half time is 57 msec. The peak mitral E/A ratio is 0.85. The average mitral E/e' ratio is 8.2. The mitral flow deceleration time is 196 msec. TRICUSPID VALVE The tricuspid valve leaflets are structurally normal. There is trace (trace - 1+) tricuspid valve regurgitation. AORTIC VALVE The aortic valve cusps are structurally normal. There is no aortic valve regurgitation. Tricuspid aortic valve. The peak gradient is 6 mmHg (peak velocity = 119.4 cm/s). PULMONIC VALVE AORTA The visualized aorta is normal in size. Measurements - Mid ascending aorta 3.2 cm. PERICARDIUM There is no pericardial effusion. There is an epicardial fat pad. STRESS ECHO Peak HR 146 bpm. (98 % MPHR) Peak BP 142 mmHg/84 mmHg. The left ventricular cavity size is decreased with stress. CONCLUSIONS: - Technically difficult exam due to body habitus. - Exam indication: REEDER - The exercise stress echo was negative for ischemia at 98 % of MPHR (7.7 METS). No regional wall motion abnormality seen at heart rate achieved. - The left ventricle is normal in size. Left ventricular systolic function is normal. EF = 61 5% (2D biplane) Grade I left ventricular diastolic dysfunction. - The right ventricle is normal in size. Right ventricular systolic function is normal. - There is KAREN at rest with no significant LVOT gradient. No change with valsalva or post exercise. - The patient has not had a prior CC echocardiographic exam for comparison. Final -- Stress ECG Report: Stress Echo [facility] Date of service: 03/27/2025 11:18:15 AM SAW FILER Ordering physician: PRASHANTH MCINTYRE pharmacy customer care specialist: Alize Hernandez RN Interpreting physician: Elver Pittman MD Patient name: MR. AIDEN ESTRADA Age: 69 years Gender: M History of hypertension and dyslipidemia. Height: 176.50 cm BSA: 2.04 m Weight: 84.80 kg BMI: 27.2 kg/m Indication: Dyspnea on exertion Stress ECG Conclusion: Conclusion: Normal with exception due to borderline ST changes and ventricular couplets Prior exam comparison: No prior CC exam Stress ECG Summary: The patient's resting heart rate was 58 bpm and blood pressure was 132/82 mmHg. The patient exercised (more content not included)... [facility] CNOVon 02-28-2025 CNOV Office Visit (GENSWS ) -------- AIDEN ESTRADA ([id number]) 1955 Date Time Provider Department 02/28/25 9:00 AM SHABANA JIMENEZ During your visit today, we recorded the following information about you: Shabana Jimenez APRN.CNP 02/28/2025 9:36 AM Signed FOLLOW UP VISIT - ENDOSCOPY Aiden Estrada 1955 [id number] REFERRING PHYSICIAN: No referring provider defined for this encounter. Aiden Estrada is a patient I am following for screening colonoscopy-hx of polyps. Dr. De Leon performed lower endoscopy on 02/21/25. The patient was found to have Impression: - Non-bleeding internal hemorrhoids. - Two 1 to 2 mm polyps in the sigmoid colon, removed with a cold biopsy forceps. Resected and retrieved. - Nodular mucosa at the ileocecal valve. Biopsied. Pathology demonstrated: FINAL DIAGNOSIS A. Colon, ileocecal valve, polypectomy: - Ileocolonic mucosa with intramucosal lymphoid aggregates (Peyer's patches), otherwise unremarkable. B. Colon, sigmoid, polypectomies: - Tubular adenoma. - Hyperplastic polyp. AEB/bs 02/22/2025 The patient notes no complaints since the procedure. VITALS: There were no vitals taken for this visit. General: patient is alert, cooperative, pleasant and in no acute distress On examination, the abdomen is benign. Assessment ASSESSMENT/PLAN: 1. Tubular adenoma of colon - ICD9: 211.3, ICD10: D12.6 (primary diagnosis) 2. Hyperplastic colonic polyp, unspecified part of colon - ICD9: 211.3, ICD10: K63.5 The operative findings and pathology report were reviewed with the patient, and the patient has had the opportunity to ask questions and have questions answered. If the patient notes any problems or changes in bowel function, the patient should contact me immediately. Otherwise I recommend follow up endoscopy in 5 years. HM updated. Discussed treatment plan and patient voices understanding. Patient's questions answered appropriately. Medications and potential side effects were discussed and patient voices understanding. Return to the office as scheduled or as needed for worsening/no improvement. ___ Shabana Jimenez APRN.CHRISTI Allergies As of Date: 02/28/2025 (No Known Allergies) Date Reviewed: 02/28/2025 Reviewed by: Shabana Jimenez APRN.LINE ASSEMBLER AIRCRAFT - Fully Assessed Reason for Visit: Follow Up [171] Cmt: Colonoscopy follow up. Denies GI issues Primary Visit Diagnosis:Tubular adenoma of colon [D12.6] Other Visit Diagnosis:Hyperplastic colonic polyp, unspecified part of colon [K63.5] Prescriptions as of 02/28/2025 - atorvastatin (LIPITOR) 20 mg tablet Take 1 tablet by mouth daily at bedtime. For cholesterol. - lisinopril (ZESTRIL) 5 mg tablet Take 1 tablet by mouth once daily. - pantoprazole DR (PROTONIX) 40 mg tablet Take 1 tablet by mouth two times a day. Take on empty stomach, 1/2 hr before meal. - propranolol (INDERAL) 10 mg tablet Take 1 tablet by mouth two times a day. - Zinrtvmmjahyf-Jbckxfwu-Y utein (CENTRUM SILVER) tab Take 1 tablet by mouth once daily. - [place]-3 Fatty Acids-Vitamin E (FISH OIL) 1,000 mg cap Take 1 capsule by mouth once daily. - Lutein 20 mg cap Take 1 capsule by mouth once daily. Problem List As Of Date 02/28/2025 Noted Resolved Headache [R51] 05/27/2007 04/05/2010 Essential hypertension [I10] 05/27/2007 Mixed hyperlipidemia [E78.2] 06/01/2007 Benign Neoplasm of Colon [D12.6] 10/12/2009 Essential tremor [G25.0] 02/12/2018 Osteopenia [M85.80] 02/12/2018 BPH with obstruction/lower urinary tract sympto*05/02/2021 Esophageal dysphagia [R13.19] 05/02/2021 05/24/2024 Gastroesophageal reflux disease with esophagiti*11/18/2022 Impaired fasting glucose [R73.01] 05/23/2023 Encounter Status:Closed by SHABAAN JIMENEZ on 02/28/25 [facility] [id number] 02-21-2025 [id number] HNO ID: [id number] Author: DAWN SCOTT RN Service: ? Author Type: Registered Nurse Type: [id number] Filed: 02/21/2025 08:12 Note Text: The patient received a copy of Colonoscopy discharge instructions that contain information for how to contact the physician who performed the procedure and when to seek medical care. [facility] Colonoscopyon 02-21-2025 Colonoscopy [facility] Gastrointestinal Endoscopy Patient Name: Aiden Estrada Procedure Date: 02/21/2025 7:19 AM Date of : 1955 Admit Type: Outpatient Age: 69 Gender: Male Note Status: Finalized Procedure: Colonoscopy - screening high risk Indications: High risk colon cancer surveillance: Personal history of adenomatous colonic polyps Providers: Emmy De Leon MD Patient Profile: Refer to note in patient chart for documentation of history and physical. Last Colonoscopy: 2019. Referring Physician: Prashanth Mcintyre (Referring MD) Medicines: Midazolam 4 mg IV, Fentanyl 100 micrograms IV, Diphenhydramine 25 mg IV Complications: No immediate complications. Requesting Provider: Procedure: Pre-Anesthesia Assessment: - Prior to the procedure, a History and Physical was performed, and patient medications and allergies were reviewed. The patient is competent. The risks and benefits of the procedure and the sedation options and risks were discussed with the patient. All questions were answered and informed consent was obtained. Patient identification and proposed procedure were verified by the physician in the pre-procedure area. Mental Status Examination: alert and oriented. Airway Examination: normal oropharyngeal airway and neck mobility. Respiratory Examination: clear to auscultation. CV Examination: normal. Prophylactic Antibiotics: The patient does not require prophylactic antibiotics. Prior Anticoagulants: The patient has taken no anticoagulant or antiplatelet agents. ASA Grade Assessment: II - A patient with mild systemic disease. After reviewing the risks and benefits, the patient was deemed in satisfactory condition to undergo the procedure. The anesthesia plan was to use moderate sedation / analgesia (conscious sedation). Immediately prior to administration of medications, the patient was re-assessed for adequacy to receive sedatives. The heart rate, respiratory rate, oxygen saturations, blood pressure, adequacy of pulmonary ventilation, and response to care were monitored throughout the procedure. The physical status of the patient was re-assessed after the procedure. After I obtained informed consent, the scope was passed under direct vision. Throughout the procedure, the patient's blood pressure, pulse, and oxygen saturations were monitored continuously. The Colonoscope was introduced through the anus and advanced to the cecum, identified by the appendiceal orifice, ileocecal valve and palpation. The colonoscopy was performed without difficulty. The patient tolerated the procedure well. The quality of the bowel preparation was adequate. The appendiceal orifice and the rectum were photographed. Moderate Sedation: The administration of moderate sedation was initiated at 07:34. Moderate (conscious) sedation was personally administered by the endoscopist. The following parameters were monitored: oxygen saturation, heart rate, blood pressure, respiratory rate, EKG, adequacy of pulmonary ventilation, and response to care. Total physician intraservice time was 16 minutes. Findings: The perianal and digital rectal examinations were normal. Non-bleeding internal hemorrhoids were found. Two sessile polyps were found in the sigmoid colon. The polyps were 1 to 2 mm in size. These polyps were removed with a cold biopsy forceps. Resection and retrieval were complete. Verification of patient identification for the specimen was done by the nurse. Estimated blood loss was minimal. A localized area of mildly nodular mucosa was found at the ileocecal valve. Biopsies were taken with a cold forceps for histology. Verification of patient identification for the specimen was done by the nurse. Estimated blood loss was minimal. Impression: - Non-bleeding internal hemorrhoids. - Two 1 to 2 mm polyps in the sigmoid colon, removed with a cold biopsy forceps. Resected and retrieved. - Nodular mucosa at the ileocecal valve. Biopsied. Recommendation: - Discharge patient to home (ambulatory). - Resume previous diet. - Continue present medications. - Await pathology results. - - Follow up with Blanca Jimenez NP, , may be via televisit for discussion of pathology results and determination of timing of future endoscopies - Patient has a contact number available for emergencies. The signs and symptoms of potential delayed complications were discussed with the patient. Return to normal activities tomorrow. Written discharge instructions were provided to the patient. - Repeat colonoscopy is recommended for surveillance. The colonoscopy date will be determined based on pathology results from today's exam and current guidelines. Procedure Code(s): --- Professional --- 66975, Colonoscopy, flexible; with biopsy, single or multiple 15146, 59, Moderate sedation services provided by the same physician or o (more content not included)... Normal [facility] Colonoscopy Study observatio non 02-21-2025 Rui [facility] Gastrointestinal Endoscopy Patient Name: Aiden Estrada Procedure Date: 02/21/2025 7:19 AM Date of : 1955 Admit Type: Outpatient Age: 69 Gender: Male Note Status: Finalized Procedure: Colonoscopy - screening high risk Indications: High risk colon cancer surveillance: Personal history of adenomatous colonic polyps Providers: Emmy De Leon MD Patient Profile: Refer to note in patient chart for documentation of history and physical. Last Colonoscopy: 2019. Referring Physician: Prashanth Mcintyre (Referring MD) Medicines: Midazolam 4 mg IV, Fentanyl 100 micrograms IV, Diphenhydramine 25 mg IV Complications: No immediate complications. Requesting Provider: Procedure: Pre-Anesthesia Assessment: - Prior to the procedure, a History and Physical was performed, and patient medications and allergies were reviewed. The patient is competent. The risks and benefits of the procedure and the sedation options and risks were discussed with the patient. All questions were answered and informed consent was obtained. Patient identification and proposed procedure were verified by the physician in the pre-procedure area. Mental Status Examination: alert and oriented. Airway Examination: normal oropharyngeal airway and neck mobility. Respiratory Examination: clear to auscultation. CV Examination: normal. Prophylactic Antibiotics: The patient does not require prophylactic antibiotics. Prior Anticoagulants: The patient has taken no anticoagulant or antiplatelet agents. ASA Grade Assessment: II - A patient with mild systemic disease. After reviewing the risks and benefits, the patient was deemed in satisfactory condition to undergo the procedure. The anesthesia plan was to use moderate sedation / analgesia (conscious sedation). Immediately prior to administration of medications, the patient was re-assessed for adequacy to receive sedatives. The heart rate, respiratory rate, oxygen saturations, blood pressure, adequacy of pulmonary ventilation, and response to care were monitored throughout the procedure. The physical status of the patient was re-assessed after the procedure. After I obtained informed consent, the scope was passed under direct vision. Throughout the procedure, the patient's blood pressure, pulse, and oxygen saturations were monitored continuously. The Colonoscope was introduced through the anus and advanced to the cecum, identified by the appendiceal orifice, ileocecal valve and palpation. The colonoscopy was performed without difficulty. The patient tolerated the procedure well. The quality of the bowel preparation was adequate. The appendiceal orifice and the rectum were photographed. Moderate Sedation: The administration of moderate sedation was initiated at 07:34. Moderate (conscious) sedation was personally administered by the endoscopist. The following parameters were monitored: oxygen saturation, heart rate, blood pressure, respiratory rate, EKG, adequacy of pulmonary ventilation, and response to care. Total physician intraservice time was 16 minutes. Findings: The perianal and digital rectal examinations were normal. Non-bleeding internal hemorrhoids were found. Two sessile polyps were found in the sigmoid colon. The polyps were 1 to 2 mm in size. These polyps were removed with a cold biopsy forceps. Resection and retrieval were complete. Verification of patient identification for the specimen was done by the nurse. Estimated blood loss was minimal. A localized area of mildly nodular mucosa was found at the ileocecal valve. Biopsies were taken with a cold forceps for histology. Verification of patient identification for the specimen was done by the nurse. Estimated blood loss was minimal. Impression: - Non-bleedin (more content not included)... [facility] Radiology Study observation (narrative) HISTORY PHYSICALon HISTORY PHYSICAL HNO ID: [id number] Author: EMMY DE LEON MD Service: General Surgery Author Type: Physician Type: H&P Filed: 02/21/2025 07:24 Note Text: HISTORY AND PHYSICAL Aiden Estrada 1955 REFERRING PHYSICIAN: Prashanth Mcintyre MD CHIEF COMPLAINT: No chief complaint on file. HPI: The patient is a 69 year old male here for colonoscopy. Last colonoscopy 2019 with findings of tubular adenoma PAST MEDICAL HISTORY Diagnosis Date Benign neoplasm of colon 10/12/2009 Tubular adenoma. 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 COVID-19 06/25/2020 Esophageal dysphagia 05/02/2021 Essential tremor 02/12/2018 Gastroesophageal reflux disease with esophagitis without hemorrhage 11/18/2022 Headache(784.0) 05/27/2007 Migraines in his 20s; CT 05-22-07 ([place]): NL. HYPERLIPIDEMIA NEC/NOS 06/01/2007 HYPERTENSION NOS 05/27/2007 Pyelonephritis, unspecified 05/27/2007 Rheumatic fever in pediatric patient 1960 Snoring PAST SURGICAL HISTORY Procedure Laterality Date CATARACT EXTRACTION W/ INTRAOCULAR LENS IMPLANT HX Bilateral 11/2016 AND 11/2016 COLONOSCOPY FLX DX W/COLLJ SPEC WHEN PFRMD 12/21/2014 Colonoscopy COLONOSCOPY FLX DX W/COLLJ SPEC WHEN PFRMD 02/10/2020 Colonoscopy COLONOSCOPY W/BIOPSY SINGLE/MULTIPLE 08/24/2008 EGD BIOPSY SING OR MULT 10/16/2022 [facility] TONSILLECTOMY PRIMARY/SECONDARY Tonsillectomy Current Outpatient Medications Medication Sig atorvastatin (LIPITOR) 20 mg tablet Take 1 tablet by mouth daily at bedtime. For cholesterol. lisinopril (ZESTRIL) 5 mg tablet Take 1 tablet by mouth once daily. pantoprazole DR (PROTONIX) 40 mg tablet Take 1 tablet by mouth two times a day. Take on empty stomach, 1/2 hr before meal. propranolol (INDERAL) 10 mg tablet Take 1 tablet by mouth two times a day. Oazkcucpseish-Ehkhuzll-L utein (CENTRUM SILVER) tab Take 1 tablet by mouth once daily. [place]-3 Fatty Acids-Vitamin E (FISH OIL) 1,000 mg cap Take 1 capsule by mouth once daily. Lutein 20 mg cap Take 1 capsule by mouth once daily. Current Facility-Administered Medications Medication Dose Route Frequency lactated ringers iv infusion 30 mL/hr INTRAVENOUS CONTINUOUS ALLERGIES: Patient has no known allergies. PERSONAL HISTORY: SOCIAL HISTORY[1] FAMILY HISTORY Problem Relation Age of Onset Hypertension Mother Hypertension Father Prostate Cancer Father No Known Problems Sister Hypertension Brother Diabetes Brother Coronary Artery Disease Brother sudden Hypertension Brother Diabetes Brother Uterine Fibroids Brother Arrhythmia Brother A.fib No Known Problems Brother Hypertension Maternal Grandmother Diabetes Maternal Grandmother Hypertension Maternal Grandfather Hypertension Paternal Grandmother Diabetes Paternal Grandmother REVIEW OF SYMPTOMS: Denies chest pain Denies shortness of breath PHYSICAL EXAMINATION: General: The patient is 69 year old male, well nourished, well hydrated in no acute distress. The patient is oriented to time, place, and person. VITALS: Blood pressure 154/79, pulse (!) 54, temperature 36.6 ?C (97.8 ?F), temperature source Temporal Artery, resp. rate 16, weight 84.8 kg (186 lb 15.2 oz), SpO2 99%. Body mass index is 27.21 kg/m?. Head - Normocephalic. EOM intact with sclera clear. Mouth with mucus membranes moist. Neck - supple with no jugular venous distention noted. Trachea is midline. Lungs - normal breath sounds, normal respiratory motion, no adventitial sounds noted. Heart - normal heart sounds. Regular rate. Abdomen - soft and benign. Extremities - no pitting edema noted. Skin - Normal skin integrity. Neurological - non focal Psych - calm and appropriate Impression: history of colon polyp Discussion/Plan/Recommen dations: I have discussed the above with the patient. I have offered colonoscopy , possible biopsies I have explained the procedure to the patient. I have counseled the patient as to the risks of the procedure, including but not limited to: infection, bleeding, injury to any intrabdominal organs such as liver/spleen, perforation of the GI tract, inability to complete the procedure, complications of anesthesia, etc. - the patient understands. The patient wishes to proceed. I have answered all questions to the patient?s satisfaction and the patient has no further questions. Emmy De Leon MD [1] Social History Tobacco Use Smoking status: Former Smokeless tobacco: Never Vaping Use Vaping status: Never Used Substance Use Topics Alcohol use: No Drug use: No Normal [facility] Pathology biopsy report Tian (Tiss)on 02-21-2025 AP DISCLAIMER Normal [facility] Comment on above: Order Comment: Speci men Type: TISSUE SPECIMEN Ordering Facility: [facility] Address: [address] [place] [address] Result Comment: Nancy Ceja Test (LDT) Disclaimer: Performance characteristics of immunohistochemical, immunofluorescent, and chromogenic in-situ hybridization tests have been determined by the performing laboratory within the Department of Pathology and Laboratory Medicine ([facility], [facility], [facility], [facility], [facility], [facility], or [facility]) in a manner consistent with CLIA requirements. One or more of these tests may not have been cleared or approved by the FDA. The Department of Pathology and Laboratory Medicine is regulated under CLIA as qualified to perform high-complexity testing. These tests are used for clinical purposes. These should not be regarded as investigational or for research. Positive and negative controls stain appropriately. Performed By: #### 6 6121-5 #### [facility] CLIA [id number] [address] [place] [address] OF [place] CASE REPORT Normal [facility] Comment on above: Order Comment: Speci men Type: TISSUE SPECIMEN Ordering Facility: [facility] Address: [address] [place] [address] Result Comment: Surg ica Pathology Report Case: [id number] Authorizing Provider: Emmy De Leon MD Collected: 02/21/2025 07:42 AM Ordering Location: Ambulatory Surgery Received: 02/21/2025 05:11 PM Pathologist: Layla Meyers MD Specimens: A) - Colon, Ileocecal Valve, Biopsy B) - Colon, Sigmoid, Polyp, polyp's x 2 Performed By: #### 6 6121-5 #### [facility] CLIA [id number] [address] [place] [address] FINAL DIAGNOSIS Normal [facility] Comment on above: Order Comment: Speci men Type: TISSUE SPECIMEN Ordering Facility: [facility] Address: [address] [place] [address] Result Comment: A. C olon, ileocecal valve, polypectomy: - Ileocolonic mucosa with intramucosal lymphoid aggregates (Peyer's patches), otherwise unremarkable. B. Colon, sigmoid, polypectomies: - Tubular adenoma. - Hyperplastic polyp. AEB/bs 02/22/2025 at 1723 EDT Performed By: #### 6 6121-5 #### [facility] CLIA [id number] [address] [place] [address] FINAL PERFORMING LAB Normal [facility] Comment on above: Order Comment: Speci men Type: TISSUE SPECIMEN Ordering Facility: [facility] Address: [address] [place] [address] Result Comment: Diag nostic interpretation performed at: [facility], [address] [address] CLIA# [id number] Customer Counter Associate: Victor Manuel Conn MD Performed By: #### 6 6121-5 #### [facility] CLIA [id number] [address] [place] [address] [place] GROSS DESCRIPTION Normal [facility] Comment on above: Order Comment: Speci men Type: TISSUE SPECIMEN Ordering Facility: [facility] Address: [address] [place] [address] Result Comment: A. C olon, Ileocecal Valve, Biopsy Received in formalin are multiple pieces of haque, soft tissue aggregating to 1.0 x 0.2 x 0.2 cm. Totally submitted in one cassette. B. Colon, Sigmoid, Polyp Received in formalin are two pieces of haque, soft tissue aggregating to 0.7 x 0.3 x 0.2 cm. Totally submitted in one cassette. Gross examination performed at [facility], [address] [place] [address]. [place] [address] JT 02/22/2025 2:19 AM Performed By: #### 6 6121-5 #### [facility] CLIA [id number] [address] [place] [address] [place] Basic metabolic 2000 panelon 12-13-2024 Anion gap [Moles/Vol] 12 mmol/L Normal 8-15 [facility] Comment on above: Order Comment: Speci men Type: BLOOD SPECIMEN Ordering Facility: [facility] Address: [address] [place] [address] Performed By: #### 2 4323-8, 03933-6 #### [facility] CLIA [id number] [address] [place] [address] [place] Calcium [Mass/Vol] 9.5 mg/dL Normal 8.5-10.2 [facility] Comment on above: Order Comment: Speci men Type: BLOOD SPECIMEN Ordering Facility: [facility] Address: [address] [place] [address] Performed By: #### 2 4323-8, 81763-3 #### [facility] CLIA [id number] [address] [place] [address] [place] Chloride [Moles/Vol] 107 mmol/L Normal 98-107 [facility] Comment on above: Order Comment: Speci men Type: BLOOD SPECIMEN Ordering Facility: [facility] Address: [address] [place] [address] Performed By: #### 2 4323-8, 78599-8 #### [facility] CLIA [id number] [address] [place] [address] [place] CO2 [Moles/Vol] 23 mmol/L Normal 22-30 [facility] Comment on above: Order Comment: Speci men Type: BLOOD SPECIMEN Ordering Facility: [facility] Address: [address] [place] [address] Performed By: #### 2 4323-8, 19965-9 #### [facility] CLIA [id number] [address] [place] [address] [place] Creatinine [Mass/Vol] 0.90 mg/dL Normal 0.73-1.22 [facility] Comment on above: Order Comment: Speci men Type: BLOOD SPECIMEN Ordering Facility: [facility] Address: [address] [place] [address] Performed By: #### 2 4323-8, 44513-9 #### [facility] CLIA [id number] [address] [place] [address] [place] Creatinine and Glomerular filtration rate.predicted panel (S/P/Bld) 91 mL/min/1.73m??? Normal >=60 [facility] Comment on above: Order Comment: Speci men Type: BLOOD SPECIMEN Ordering Facility: [facility] Address: [address] [place] [address] Result Comment: Qi mated Glomerular Filtration Rate (eGFR) is calculated using the 2020 CKD-EPI creatinine equation. This equation utilizes serum creatinine, sex, and age as parameters. The creatinine assay has traceable calibration to isotope dilution-mass spectrometry. Refer to KDIGO guidelines for clinical interpretation. In patients with unstable renal function, e.g. those with acute kidney injury, the eGFR may not accurately reflect actual GFR. Performed By: #### 2 4323-8, 24028-8 #### [facility] CLIA [id number] [address] [address] [place] Glucose [Mass/Vol] 70 mg/dL Low 74-99 [facility] Comment on above: Order Comment: Bryce sherman Type: BLOOD SPECIMEN Ordering Facility: [facility] Address: [address] [place] [address] Result Comment: The [place] Diabetes Association (ADA) provides guidance for cutoff values for fasting glucose and random glucose. The ADA defines fasting as no caloric intake for at least 8 hours. Fasting plasma glucose results between 100 to 125 mg/dL indicate increased risk for diabetes (prediabetes). Fasting plasma glucose results greater than or equal to 126 mg/dL meet the criteria for diagnosis of diabetes. In the absence of unequivocal hyperglycemia, results should be confirmed by repeat testing. In a patient with classic symptoms of hyperglycemia or hyperglycemic crisis, random plasma glucose results greater than or equal to 200 mg/dL meet the criteria for diagnosis of diabetes. Reference: Standards of Medical Care in Diabetes 2016, [place] [employer] Association. Diabetes Care. 2016.39(Suppl 1). Performed By: #### 2 4323-8, 46370-1 #### [facility] CLIA [id number] [address] [place], [place] [id number] [place] Potassium [Moles/Vol] 4.4 mmol/L Normal 3.7-5.1 [facility] Comment on above: Order Comment: Bryce sherman Type: BLOOD SPECIMEN Ordering Facility: [facility] Address: [address] [place] [address] Performed By: #### 2 4323-8, 74794-4 #### [facility] CLIA [id number] [address] [place] [address] [place] Sodium [Moles/Vol] 142 mmol/L Normal 136-144 [facility] Comment on above: Order Comment: Speci men Type: BLOOD SPECIMEN Ordering Facility: [facility] Address: [address] [place] [address] Performed By: #### 2 4323-8, 88556-1 #### [facility] CLIA [id number] [address] [place] [address] [place] Urea nitrogen [Mass/Vol] 19 mg/dL Normal 9-24 [facility] Comment on above: Order Comment: Speci men Type: BLOOD SPECIMEN Ordering Facility: [facility] Address: [address] [place] [address] Performed By: #### 2 4323-8, 39232-5 #### [facility] CLIA [id number] [address] [place] [address] [place] CBC panel Auto (Bld)on 12-13 Erythrocyte distribution width (RBC) [Ratio] 12.2 % 11.5 - 15.0 % Hematocrit (Bld) [Volume fraction] 42.9 % 39.0 - 51.0 % Hemoglobin (Bld) [Mass/Vol] 14.4 g/dL 13.0 - 17.0 g/dL Interpretation and review of laboratory results Normal MCH (RBC) [Entitic mass] 30.6 pg 26.0 - 34.0 pg MCHC (RBC) [Mass/Vol] 33.6 g/dL 30.5 - 36.0 g/dL MCV (RBC) [Entitic vol] 91.3 fL 80.0 - 100.0 fL Nucleated RBC (Bld) [#/Vol] NINF Platelet mean volume (Bld) [Entitic vol] 11 fL 9.0 - 12.7 fL Platelets (Bld) [#/Vol] 194 10*3/uL RBC (Bld) [#/Vol] 4.7 10*6/uL 4.20 - 6.0 0 m/uL WBC (Bld) [#/Vol] 5.65 10*3/uL [facility] Erythrocyte distribution width (RBC) [Ratio] 12.2 % Normal 11.5-15.0 [facility] Comment on above: Order Comment: Speci men Type: BLOOD SPECIMEN Ordering Facility: [facility] Address: [address] [place] [address] Performed By: #### 2 4323-8, 81262-2 #### [facility] CLIA [id number] [address] [place] [address] [place] Hematocrit (Bld) [Volume fraction] 42.9 % Normal 39.0-51.0 [facility] Comment on above: Order Comment: Speci men Type: BLOOD SPECIMEN Ordering Facility: [facility] Address: [address] [place] [address] Performed By: #### 2 4323-8, 68826-8 #### [facility] CLIA [id number] [address] [place] [address] [place] Hemoglobin (Bld) [Mass/Vol] 14.4 g/dL Normal 13.0-17.0 [facility] Comment on above: Order Comment: Speci men Type: BLOOD SPECIMEN Ordering Facility: [facility] Address: [address] [place] [address] Performed By: #### 2 4323-8, 53404-2 #### [facility] CLIA [id number] [address] [place] [address] [place] MCH (RBC) [Entitic mass] 30.6 pg Normal 26.0-34.0 [facility] Comment on above: Order Comment: Speci men Type: BLOOD SPECIMEN Ordering Facility: [facility] Address: [address] [place] [address] Performed By: #### 2 4323-8, 20814-0 #### [facility] CLIA [id number] [address] [place] [address] [place] MCHC (RBC) [Mass/Vol] 33.6 g/dL Normal 30.5-36.0 [facility] Comment on above: Order Comment: Speci men Type: BLOOD SPECIMEN Ordering Facility: [facility] Address: [address] [place] [address] Performed By: #### 2 4323-8, 28374-9 #### [facility] CLIA [id number] [address] [place], [place] [address] [place] MCV (RBC) [Entitic vol] 91.3 fL Normal 80.0-100.0 [facility] Comment on above: Order Comment: Speci men Type: BLOOD SPECIMEN Ordering Facility: [facility] Address: [address] [place] [address] Performed By: #### 2 4323-8, 31532-7 #### [facility] CLIA [id number] [address] [place] [address] [place] Nucleated RBC (Bld) [#/Vol] 10*3/uL Normal <0.01 [facility] Comment on above: Order Comment: Speci men Type: BLOOD SPECIMEN Ordering Facility: [facility] Address: [address] [place] [address] Performed By: #### 2 4323-8, 74285-1 #### [facility] CLIA [id number] [address] [place] [address] [place] Platelet mean volume (Bld) [Entitic vol] 11.0 fL Normal 9.0-12.7 [facility] Comment on above: Order Comment: Speci men Type: BLOOD SPECIMEN Ordering Facility: [facility] Address: [address] [place] [address] Performed By: #### 2 4323-8, 97548-0 #### [facility] CLIA [id number] [address] [place] [address] [place] Platelets (Bld) [#/Vol] 194 10*3/uL Normal 150-400 [facility] Comment on above: Order Comment: Speci men Type: BLOOD SPECIMEN Ordering Facility: [facility] Address: [address] [place] [address] Performed By: #### 2 4323-8, 09621-9 #### [facility] CLIA [id number] [address] [place] [address] [place] RBC (Bld) [#/Vol] 4.70 10*6/uL Normal 4.20-6.00 [facility] Comment on above: Order Comment: Speci men Type: BLOOD SPECIMEN Ordering Facility: [facility] Address: [address] [place] [address] Performed By: #### 2 4323-8, 31340-9 #### [facility] CLIA [id number] [address] [place] [address] [place] WBC (Bld) [#/Vol] 5.65 10*3/uL Normal 3.70-11.00 [facility] Comment on above: Order Comment: Speci men Type: BLOOD SPECIMEN Ordering Facility: [facility] Address: [address] [place] [address] Performed By: #### 2 4323-8, 09498-8 #### [facility] CLIA [id number] [address] [place] [address] [place] CNOVon 12-13-2024 CNOV Office Visit (INTMWS ) -------- AIDEN ESTRADA ([id number]) 1955 M Date Time Provider Department 12/13/24 10:00 AM PRASHANTH MCINTYRE INTMWS During your visit today, we recorded the following information about you: Pulse Respiration Blood pressure Weight 56/minute 16/minute 130/78 84.8 kg Joann Rutledge LPN 12/13/2024 10:59 AM Signed [facility] OPEN ACCESS QUESTIONNAIRE 1. Are you currently having any new or unusual stomach/gastrointestinal issues at this time such as constipation, diarrhea, abdominal pain, rectal bleeding etc?No 2. Do you have any difficulty swallowing? No 3. Do you have any implanted devices such as a defibrillator, pacemaker, cardiac stents or deep brain stimulator? No 4. Do you take any Blood thinners such as Coumadin, Plavix, Xarelto, Eliquis, Brilinta or any other blood thinner? No 5. Do you have any new or past cardiac (heart) or pulmonary (lung) issues? No 6. Do you currently use any oxygen? No 7. Have you been hospitalized in the past 6 weeks? No 8. Have you had difficulty with anesthesia previously re: Difficult intubation? No Other difficulty or allergic reaction to anesthesia other than post op N/V? No 9. Are you on dialysis? No 10. Do you have any bleeding disorders such as hemophilia or Factor 5? No 11. Are you an Insulin Dependent Diabetic? No IF ANY OF THE TOP ELEVEN QUESTIONS ARE ANSWERED YES PLEASE SCHEDULE THE PATIENT FOR A CONSULT. advised 12. Is the patient's BMI 40 or greater? No:There is no height or weight on file to calculate BMI.. 13. Do you take any narcotics or anti-Anxiety medications? No 14. Do you use any illegal or recreational drugs including marijuana? No 15. Any alcohol use: No. 16. Have you been diagnosed with chronic liver disease such as hepatitis or cirrhosis? No 17. Do you have a seizure disorder? No 18. Do you have ulcerative colitis or Crohn's disease? No 19. Are you or could you be ? No 20. Any other important health information we should be made aware of prior to your colonoscopy? No To be completed by LIP: Did patient have MAC anesthesia with a previous endoscopy procedure? No Patient appropriate for Open Access Colonoscopy: Yes: appropriate for Open Access Procedure Checklist: Prior to closing the encounter: Complete questionnaire: Yes Confirm Prep order has been Ordered/Pended: Yes. Patient's procedure could be delayed if not given the script for the prep. Please ensure the prep is escripted to pharmacy or printed. Instructions for the prep will print upon filing or pending this smartset. Please send all open access questionnaires to [facility] Pool #[id number] Prashanth Mcintyre MD 12/13/2024 10:59 AM Signed This note was created using [email or web address]. Subjective Aiden Estrada is a 69 year old male. His noted dyspnea on exertion gradually progressing over the past 6 months. He had no other associated symptoms. His hypertension, tremor, and hyperlipidemia were historically controlled. Gomez Activity Status Index Score: 50.7. Metabolic equivalents 8.97. Review of Systems Constitutional: Negative for fatigue and fever. HENT: Negative for congestion. Respiratory: Negative for cough and chest tightness. Cardiovascular: Negative for chest pain, palpitations and leg swelling. Gastrointestinal: Negative for blood in stool, nausea and vomiting. Neurological: Negative for dizziness and headaches. ACTIVE PROBLEM LIST Essential Hypertension Mixed Hyperlipidemia Benign Neoplasm of Colon Essential Tremor Osteopenia Bph With Obstruction/Lower Urinary Tract Symptoms Gastroesophageal Reflux Disease With Esophagitis Without Hemorrhage Impaired Fasting Glucose Social History Tobacco Use Smoking status: Former Smokeless tobacco: Never Vaping Use Vaping status: Never Used Substance Use Topics Alcohol use: No Drug use: No Current Outpatient Medications Medication Sig Vazondbwuvehr-Vpjwefqv-H utein (CENTRUM SILVER) tab Take 1 tablet by mouth once daily. [place]-3 Fatty Acids-Vitamin E (FISH OIL) 1,000 mg cap Take 1 capsule by mouth once daily. Lutein 20 mg cap Take 1 capsule by mouth once daily. atorvastatin (LIPITOR) 20 mg tablet Take 1 tablet by mouth daily at bedtime. For cholesterol. lisinopril (ZESTRIL) 5 mg tablet Take 1 tablet by mouth once daily. pantoprazole DR (PROTONIX) 40 mg tablet Take 1 tablet by mouth two times a day. Take on empty stomach, 1/2 hr before meal. propranolol (INDERAL) 10 mg tablet Take 1 tablet by mouth two times a day. peg 3350-electrolytes (GAVILYTE-C) 240-22.72-6.72 -5.84 gram solution Take 4,000 mL by mouth one time only for 1 dose. No current facility-administered medications for this visit. Objective BP 130/78 Pulse (!) 56 Resp 16 Wt 84.8 kg (186 lb 15.2 oz) SpO2 98% BMI 27.21 kg/m? Physical Exam Constitutional: General: He is not in acute (more content not included)... Normal [facility] ECG COMPLETEon 12-13-2024 Atrial Rate 52 BPM Calculated P [place] 47 degrees [facility] Calculated R [place] 63 degrees [facility] Calculated T [place] 51 degrees [facility] P-R Interval 160 ms QRS Duration 84 ms QT Interval 420 ms QTC Calculation (Bazett) 390 ms Ventricular Rate 52 BPM [facility] SINUS BRADYCARDIA INCREASED R/S RATIO IN V1, CONSIDER EARLY TRANSITION OR POSTERIOR INFARCT ABNORMAL ECG Confirmed by MD PITTMAN QARAB ([id number]) on 12/13/2024 5:02:28 PM [facility] NAME : AIDEN ESTRADA PID : [id number] : 1955 Gender : Male Race : ORD : Procedure Date : Dec 13 2024 10:36:08 Edit Date : Dec 13 2024 17:02:31 Diagnosis: SINUS BRADYCARDIA INCREASED R/S RATIO IN V1, CONSIDER EARLY TRANSITION OR POSTERIOR INFARCT ABNORMAL ECG Confirmed by MD PITTMAN QARAB ([id number]) on 12/13/2024 5:02:28 PM Test Reason : Location : [facility] : [facility] Overread By : MD PITTMAN QARAB Edited By : MD PITTMAN QARAB Referred By : Prashanth Mcintyre Acquired by : Joann [facility] [id number] 12-13-2024 ECG01 Ventricular Rate : 5 2 BPM Atrial Rate : 52 BPM P-R Interval : 160 ms QRS Duration : 84 ms Q-T Interval : 420 ms QTC Calculation(Bazett) : 390 ms Calculated P [place] : 47 degrees Calculated R [place] : 63 degrees Calculated T [place] : 51 degrees SINUS BRADYCARDIA INCREASED R/S RATIO IN V1, CONSIDER EARLY TRANSITION OR POSTERIOR INFARCT ABNORMAL ECG Confirmed by MD PITTMAN QARAB ([id number]) on 12/13/2024 5:02:28 PM NAME : AIDEN ESTRADA PID : [id number] : 1955 Gender : Male Race : ORD : Procedure Date : Dec 13 2024 10:36:08 Edit Date : Dec 13 2024 17:02:31 Diagnosis: SINUS BRADYCARDIA INCREASED R/S RATIO IN V1, CONSIDER EARLY TRANSITION OR POSTERIOR INFARCT ABNORMAL ECG Confirmed by MD PITTMAN QARAB ([id number]) on 12/13/2024 5:02:28 PM Test Reason : Location : 185 : [facility] Overread By : MD PITTMAN QARAB Edited By : MD PITTMAN QARAB Referred By : Prashanth Mcintyre Acquired by : Sacha David [facility] CNOVon 05-24-2024 CNOV Office Visit (INTMWS ) -------- AIDEN ESTRADA ([id number]) 1955 M Date Time Provider Department 05/24/24 10:00 AM ANNA CRUZ INTMWS During your visit today, we recorded the following information about you: Pulse Blood pressure Weight Height 62/minute 124/80 84.5 kg 1.765 m Anna Cruz APRN.CNP 05/24/2024 2:34 PM Signed Aiden Akbar Sean is a 68 year old male here for a Medicare wellness visit. Medicare Health Risk Assessment General Health Very good Exercise: Minutes/Day 0 min Exercise: Days/Week On average, how many days per week do you engage in moderate to strenuous exercise (like a brisk walk)?: 0 days (stays active doing yard work such as chopping wood) Alcohol: Daily Use Never Alcohol: Drinks/Day Patient does not drink Alcohol: 6 or more drinks Never Feel off balance No Concerns: Teeth/Dentures No Concerns: Sexual function No Troubled by feelings Frequency: Eating healthy diet Nearly every day ADLs requiring help None of the above Safety precautions in home/vehicle Yes Smoke, vape, chews tobacco No Difficulty hearing Yes Difficulty seeing No Current Providers Specialists: I have reviewed specialist-related care of the patient in the medical record. Current care team: Patient Care Team: Prashanth Mcintyre MD as PCP - Anna Mayo APRN.[employer] as Clarification Operator (Internal Medicine) Outside specialists seen: ct scan special procedures technologist-Silvia HIDALGO Medical/Family history review Reviewed and updated problem list, medical/surgical/family/ social history, medications, and allergies. Opioid use review Opioid Medications (last 90 days) No data to display Depression Screening DEPRESSION SCREENING Ordered at: 05/24/24 1013 Based on score and interview, patient is: Not at risk for depression Screening tool discussed with patient, and I recommend: No further intervention at this time PHQ-2 Score: 0 ANXIETY SCREENING Ordered at: 05/24/24 1013 Based on score and interview, patient is: Not at risk for anxiety Screening tool discussed with patient, and I recommend: No further intervention at this time SHERIDAN-2 Score: 0 Cognitive screening Mini Cog Score: 5 Cognitive screening reviewed and No further action needed (score 3-5). Functional Observation Was the patient's Timed Up AND Go test unsteady or >= 12 seconds? No Advance Care Planning Patient was not able to provide a surrogate decision maker or written advance directives Measurements BP 124/80 Pulse 62 Ht 176.5 cm (5' 9.5) Wt 84.5 kg (186 lb 4.6 oz) SpO2 98% BMI 27.12 kg/m? Vision Screening: Follows with optometry/ophthalmology Assessment/Plan Medicare annual wellness visit, subsequent (Z00.00) - Counseled on healthy diet and regular exercise - Fall avoidance information provided - Personalized prevention plan provided Additional Concerns The following concerns were also discussed with the patient: HTN-Medication changes:No Taking all medications as prescribed: Yes Side effects: No Home BP's: No Denies: headache, chest pain, palpitations, dyspnea, and peripheral edema. Last 3 Encounter BP Readings: Date: BP: 05/24/2024 124/80 12/07/2023 122/72 05/22/2023 124/78 GERD- Symptoms controlled with Protonix. Denies heartburn/reflux, dysphagia, bloating, abdominal pain, black/bloody stools, vomiting, decreased appetite. BPH: denies LUTS Essential tremor: no worsening of tremors PHYSICAL EXAM BP 124/80 Pulse 62 Ht 176.5 cm (5' 9.5) Wt 84.5 kg (186 lb 4.6 oz) SpO2 98% BMI 27.12 kg/m? GENERAL: well appearing, alert, in no acute distress CARDIOVASCULAR: regular rate and rhythm. No murmur, rubs or gallops. PULMONARY: clear to auscultation, no wheezing, rhonchi, or crackles ASSESSMENT/PLAN: 1. Medicare annual wellness visit, subsequent - ICD9: V70.0, ICD10: Z00.00 (primary diagnosis) See medicare wellness plan 2. Essential hypertension - ICD9: 401.9, ICD10: I10 - Controlled - Continue current medications - Recommend home blood pressure monitoring, to bring results to next visit - Encouraged sodium restriction, DASH or Mediterranean diet 3. Gastroesophageal reflux disease with esophagitis without hemorrhage - ICD9: 530.81, 530.10, ICD10: K21.00 Stable on Protonix 4. Mixed hyperlipidemia - ICD9: 272.2, ICD10: E78.2 - Controlled - Continue current medications 5. Impaired fasting glucose - ICD9: 790.21, ICD10: R73.01 Stable 6. BPH with obstruction/lower urinary tract symptoms - ICD9: 600.01, 599.69, ICD10: N40.1, N13.8 Stable 7. Essential tremor - ICD9: 333.1, ICD10: G25.0 Stable 8. Screening for depression - ICD9: V79.0, ICD10: Z13.31 - DEPRESSION SCREENING 9. Encounter for screening examination for other mental health and behavioral disorders - ICD9: V79.8, ICD10: Z13.39 - ANXIETY SCREENING 10. Encounter for immunization - ICD9: V03.89 (more content not included)... Normal [facility] CBC panel Auto (Bld)on 05-20 Erythrocyte distribution width (RBC) [Ratio] 11.9 % Normal 11.5-15.0 [facility] Comment on above: Order Comment: Munai lane Type: BLOOD SPECIMEN Ordering Facility: [facility] Address: [address] [place] [address] Performed By: #### 5 8410-2 #### [facility] CLIA [id number] [address] [place] [address] [place] Hematocrit (Bld) [Volume fraction] 42.6 % Normal 39.0-51.0 [facility] Comment on above: Order Comment: Munai men Type: BLOOD SPECIMEN Ordering Facility: [facility] Address: [address] [place] [address] Performed By: #### 5 8410-2 #### [facility] CLIA [id number] [address] [place] [address] [place] Hemoglobin (Bld) [Mass/Vol] 14.6 g/dL Normal 13.0-17.0 [facility] Comment on above: Order Comment: Speci men Type: BLOOD SPECIMEN Ordering Facility: [facility] Address: [address] [place] [address] Performed By: #### 5 8410-2 #### [facility] CLIA [id number] [address] [place] [address] [place] MCH (RBC) [Entitic mass] 31.5 pg Normal 26.0-34.0 [facility] Comment on above: Order Comment: Speci men Type: BLOOD SPECIMEN Ordering Facility: [facility] Address: [address] [place] [address] Performed By: #### 5 8410-2 #### [facility] CLIA [id number] [address] [place] [address] [place] MCHC (RBC) [Mass/Vol] 34.3 g/dL Normal 30.5-36.0 [facility] Comment on above: Order Comment: Speci men Type: BLOOD SPECIMEN Ordering Facility: [facility] Address: [address] [place] [address] Performed By: #### 5 8410-2 #### [facility] CLIA [id number] [address] [place] [address] [place] MCV (RBC) [Entitic vol] 92.0 fL Normal 80.0-100.0 [facility] Comment on above: Order Comment: Speci men Type: BLOOD SPECIMEN Ordering Facility: [facility] Address: [address] [place] [address] Performed By: #### 5 8410-2 #### [facility] CLIA [id number] [address] [id number] [address] [place] Nucleated RBC (Bld) [#/Vol] 10*3/uL Normal <0.01 [facility] Comment on above: Order Comment: Speci men Type: BLOOD SPECIMEN Ordering Facility: [facility] Address: [address] [place] [address] Performed By: #### 5 8410-2 #### [facility] CLIA [id number] [address] [place] [address] [place] Platelet mean volume (Bld) [Entitic vol] 10.9 fL Normal 9.0-12.7 [facility] Comment on above: Order Comment: Speci men Type: BLOOD SPECIMEN Ordering Facility: [facility] Address: [address] [place] [address] Performed By: #### 5 8410-2 #### [facility] CLIA [id number] [address] [place] [address] [place] Platelets (Bld) [#/Vol] 199 10*3/uL Normal 150-400 [facility] Comment on above: Order Comment: Speci men Type: BLOOD SPECIMEN Ordering Facility: [facility] Address: [address] [place] [address] Performed By: #### 5 8410-2 #### [facility] CLIA [id number] [address] [place] [address] [place] RBC (Bld) [#/Vol] 4.63 10*6/uL Normal 4.20-6.00 [facility] Comment on above: Order Comment: Speci men Type: BLOOD SPECIMEN Ordering Facility: [facility] Address: [address] [place] [address] Performed By: #### 5 8410-2 #### [facility] CLIA [id number] [address] [place] [address] [place] WBC (Bld) [#/Vol] 4.97 10*3/uL Normal 3.70-11.00 [facility] Comment on above: Order Comment: Speci men Type: BLOOD SPECIMEN Ordering Facility: [facility] Address: [address] [place] [address] Performed By: #### 5 8410-2 #### [facility] CLIA [id number] [address] [place] [address] [place] Comprehensive metabolic 2000 panelon 05-20-2024 Albumin [Mass/Vol] 4.1 g/dL Normal 3.9-4.9 [facility] Comment on above: Order Comment: Speci men Type: BLOOD SPECIMEN Ordering Facility: [facility] Address: [address] [place] [address] Performed By: #### 2 4323-8, 56150-1 #### [facility] CLIA [id number] [address] [place] [address] [place] ALP [Catalytic activity/Vol] 62 U/L Normal 38-113 [facility] Comment on above: Order Comment: Speci men Type: BLOOD SPECIMEN Ordering Facility: [facility] Address: [address] [place] [address] Performed By: #### 2 4323-8, 33744-3 #### [facility] CLIA [id number] [address] [place] [address] [place] ALT [Catalytic activity/Vol] 24 U/L Normal 10-54 [facility] Comment on above: Order Comment: Speci men Type: BLOOD SPECIMEN Ordering Facility: [facility] Address: [address] [place] [address] Performed By: #### 2 4323-8, 56170-8 #### [facility] CLIA [id number] [address] [place] [address] [place] Anion gap [Moles/Vol] 10 mmol/L Normal 8-15 [facility] Comment on above: Order Comment: Speci men Type: BLOOD SPECIMEN Ordering Facility: [facility] Address: [address] [place] [address] Performed By: #### 2 4323-8, 18211-8 #### [facility] CLIA [id number] [address] [place] [address] [place] AST [Catalytic activity/Vol] 19 U/L Normal 14-40 [facility] Comment on above: Order Comment: Speci men Type: BLOOD SPECIMEN Ordering Facility: [facility] Address: [address] [place] [address] Performed By: #### 2 4323-8, 12270-1 #### [facility] CLIA [id number] [address] [place] [address] [place] Bilirubin [Mass/Vol] 0.7 mg/dL Normal 0.2-1.3 [facility] Comment on above: Order Comment: Speci men Type: BLOOD SPECIMEN Ordering Facility: [facility] Address: [address] [place] [address] Performed By: #### 2 4323-8, 34979-7 #### [facility] CLIA [id number] [address] [place] [address] [place] Calcium [Mass/Vol] 9.1 mg/dL Normal 8.5-10.2 [facility] Comment on above: Order Comment: Speci men Type: BLOOD SPECIMEN Ordering Facility: [facility] Address: [address] [place] [address] Performed By: #### 2 4323-8, 90347-3 #### [facility] CLIA [id number] [address] [place] [address] [place] Chloride [Moles/Vol] 106 mmol/L Normal 98-107 [facility] Comment on above: Order Comment: Speci men Type: BLOOD SPECIMEN Ordering Facility: [facility] Address: [address] [place] [address] Performed By: #### 2 4323-8, 49668-4 #### [facility] CLIA [id number] [address] [place] [address] [place] CO2 [Moles/Vol] 26 mmol/L Normal 22-30 [facility] Comment on above: Order Comment: Bryce sherman Type: BLOOD SPECIMEN Ordering Facility: [facility] Address: [address] [place] [address] Performed By: #### 2 4323-8, 85566-7 #### [facility] CLIA [id number] [address] [place] [address] [place] Creatinine [Mass/Vol] 1.00 mg/dL Normal 0.73-1.22 [facility] Comment on above: Order Comment: Bryce sherman Type: BLOOD SPECIMEN Ordering Facility: [facility] Address: [address] [place] [address] Performed By: #### 2 4323-8, 33208-6 #### [facility] CLIA [id number] [address] [place] [address] [place] Creatinine and Glomerular filtration rate.predicted panel (S/P/Bld) 81 mL/min/1.73m??? Normal >=60 [facility] Comment on above: Order Comment: Bryce sherman Type: BLOOD SPECIMEN Ordering Facility: [facility] Address: [address] [place] [address] Result Comment: Qi mated Glomerular Filtration Rate (eGFR) is calculated using the 2020 CKD-EPI creatinine equation. This equation utilizes serum creatinine, sex, and age as parameters. The creatinine assay has traceable calibration to isotope dilution-mass spectrometry. Refer to KDIGO guidelines for clinical interpretation. In patients with unstable renal function, e.g. those with acute kidney injury, the eGFR may not accurately reflect actual GFR. Performed By: #### 2 4323-8, 66267-6 #### [facility] CLIA [id number] [address] [place] [address] [place] Glucose [Mass/Vol] 111 mg/dL High 74-99 [facility] Comment on above: Order Comment: Bryce sherman Type: BLOOD SPECIMEN Ordering Facility: [facility] Address: [address] [place] [address] Result Comment: The [place] [employer] (ADA) provides guidance for cutoff values for fasting glucose and random glucose. The ADA defines fasting as no caloric intake for at least 8 hours. Fasting plasma glucose results between 100 to 125 mg/dL indicate increased risk for diabetes (prediabetes). Fasting plasma glucose results greater than or equal to 126 mg/dL meet the criteria for diagnosis of diabetes. In the absence of unequivocal hyperglycemia, results should be confirmed by repeat testing. In a patient with classic symptoms of hyperglycemia or hyperglycemic crisis, random plasma glucose results greater than or equal to 200 mg/dL meet the criteria for diagnosis of diabetes. Reference: Standards of Medical Care in Diabetes 2016, [place] [employer]. Diabetes Care. 2016.39(Suppl 1). Performed By: #### 2 4323-8, 00341-6 #### [facility] CLIA [id number] [address] [place] [address] [place] Potassium [Moles/Vol] 4.2 mmol/L Normal 3.7-5.1 [facility] Comment on above: Order Comment: Speci men Type: BLOOD SPECIMEN Ordering Facility: [facility] Address: [address] [place] [address] Performed By: #### 2 4323-8, 64253-8 #### [facility] CLIA [id number] [address] [place] [address] [place] Protein [Mass/Vol] 6.5 g/dL Normal 6.3-8.0 [facility] Comment on above: Order Comment: Speci men Type: BLOOD SPECIMEN Ordering Facility: [facility] Address: [address] [place] [address] Performed By: #### 2 4323-8, 26822-6 #### [facility] CLIA [id number] [address] [place] [address] [place] Sodium [Moles/Vol] 142 mmol/L Normal 136-144 [facility] Comment on above: Order Comment: Speci men Type: BLOOD SPECIMEN Ordering Facility: [facility] Address: [address] [place] [address] Performed By: #### 2 4323-8, 38685-6 #### [facility] CLIA [id number] [address] [place] [address] [place] Urea nitrogen [Mass/Vol] 19 mg/dL Normal 9-24 [facility] Comment on above: Order Comment: Speci men Type: BLOOD SPECIMEN Ordering Facility: [facility] Address: [address] [place] [address] Performed By: #### 2 4323-8, 68012-0 #### [facility] CLIA [id number] [address] [place] [address] [place] Lipid 1996 panelon 4 Cholesterol [Mass/Vol] 128 mg/dL Normal <200 [facility] Comment on above: Order Comment: Speci men Type: BLOOD SPECIMEN Ordering Facility: [facility] Address: [address] [place] [address] Result Comment: <200 mg/dL, Desirable 200-239 mg/dL, Borderline high >239 mg/dL, High Performed By: #### 2 4323-8, 93047-8 #### [facility] CLIA [id number] [address] [place] [address] [place] Cholesterol in HDL [Mass/Vol] 43 mg/dL Normal >39 [facility] Comment on above: Order Comment: Speci men Type: BLOOD SPECIMEN Ordering Facility: [facility] Address: [address] [place] [address] Result Comment: 40-5 9 mg/dL, Acceptable >59 mg/dL, High: Negative risk factor for coronary heart disease <40 mg/dL, Low: Positive risk factor for coronary heart disease Performed By: #### 2 4323-8, 60806-5 #### [facility] CLIA [id number] [address] [place] [address] [place] Cholesterol in LDL [Mass/Vol] 62 mg/dL Normal <100 [facility] Comment on above: Order Comment: Speci men Type: BLOOD SPECIMEN Ordering Facility: [facility] Address: [address] [place] [address] Result Comment: <100 mg/dL, Optimal 100-129 mg/dL, Near optimal/above optimal 130-159 mg/dL, Borderline high 160-189 mg/dL, High >189 mg/dL, Very high Secondary prevention optimal LDL Cholesterol levels are recommended to be < 70 mg/dL Performed By: #### 2 4323-8, 89914-4 #### [facility] CLIA [id number] [facility] [place] [address] [place] Cholesterol in LDL/Cholesterol in HDL [Mass ratio] 1.44 {ratio} Normal <2.54 [facility] Comment on above: Order Comment: Speci men Type: BLOOD SPECIMEN Ordering Facility: [facility] Address: [address] [place] [address] Result Comment: Awa escobedo: 1. National Cholesterol Education Program ATP III Guideline At-A-Glance Quick Desk Reference: National Heart, Lung, and Blood [place]. National Institutes of Health. 2001: NIH Publication No. 01-3305. 2. An International Atherosclerosis Society position paper: global recommendations for the management of dyslipidemia: executive summary, Atherosclerosis. 2014: 232(2):410-413. Performed By: #### 2 4323-8, 39649-1 #### [facility] CLIA [id number] [address] [place], [place] [address] [address] [place] Cholesterol in VLDL [Mass/Vol] 23 mg/dL Normal <30 [facility] Comment on above: Order Comment: Speci men Type: BLOOD SPECIMEN Ordering Facility: [facility] Address: [address] [place] [address] Performed By: #### 2 4323-8, #### [facility] CLIA [id number] [address] [place], [place] [address] [place] [address] [place] Cholesterol non HDL [Mass/Vol] 85 mg/dL Normal <130 [facility] Comment on above: Order Comment: Speci men Type: BLOOD SPECIMEN Ordering Facility: [facility] Address: [address] [place] [address] Result Comment: <130 mg/dL, Optimal 130-159 mg/dL, Near optimal/above optimal 160-189 mg/dL, Borderline high 190-219 mg/dL, High >219 mg/dL, Very high Secondary prevention optimal non HDL Cholesterol levels are recommended to be <100 mg/dL Performed By: #### 2 4323-8, 19358-3 #### [facility] CLIA [id number] [address] [place] [address] [place] Cholesterol.total/Cho lesterol in HDL [Mass ratio] 2.98 {ratio} Normal <5.10 [facility] Comment on above: Order Comment: Speci men Type: BLOOD SPECIMEN Ordering Facility: [facility] Address: [address] [place] [address] Performed By: #### 2 4323-8, 34962-1 #### [facility] CLIA [id number] [address] [place] [address] [place] FASTING TIME 15 hrs Normal [facility] Comment on above: Order Comment: Speci men Type: BLOOD SPECIMEN Ordering Facility: [facility] Address: [address] [place] [address] Performed By: #### 2 4323-8, 87634-9 #### [facility] CLIA [id number] [address] [place] [address] [place] Triglyceride [Mass/Vol] 115 mg/dL Normal <150 [facility] Comment on above: Order Comment: Speci men Type: BLOOD SPECIMEN Ordering Facility: [facility] Address: [address] [place] [address] Result Comment: <150 mg/dL, Normal 150-199 mg/dL, Borderline high 200-499 mg/dL, High >499 mg/dL, Very high Performed By: #### 2 4323-8, 56087-0 #### [facility] CLIA [id number] [address] [id number] [place] MAGNESIUM LEVELon 11-22-2023 Magnesium [Mass/Vol] 1.9 mg/dL Normal 1.6-2.4 [facility] Comment on above: Performed By: #### 4 6109 #### [facility] [address] [place], [place] [address] Fritz Egan M.D. [id number] Magnesium Levelon 11-22-2023 Magnesium [Mass/Vol] 1.9 mg/dL 1.6 - 2 .4 mg/dL [facility] Magnesium [Mass/Vol]on 11-21 Interpretation and review of laboratory results Normal [facility] RENAL FUNCTION PANELon 11-21 Albumin [Mass/Vol] 3.2 g/dL Normal 3.2-5.2 [facility] Comment on above: Order Comment: [facility] has implemented the eGFR calculation approach that does not have a coefficient for race that conforms to the NKF-ASN Task Force Recommendations. Performed By: #### 4 6449 #### [facility] [address] [place], [place] [address] Fritz Egan M.D. [id number] Anion gap [Moles/Vol] 12 mmol/L Normal 10-20 [facility] Comment on above: Order Comment: [facility] has implemented the eGFR calculation approach that does not have a coefficient for race that conforms to the NKF-ASN Task Force Recommendations. Performed By: #### 4 6449 #### [facility] [address] [place], [place] [address] Fritz Egan M.D. [id number] Calcium [Mass/Vol] 8.3 mg/dL Low 8.4-10.2 [facility] Comment on above: Order Comment: [facility] has implemented the eGFR calculation approach that does not have a coefficient for race that conforms to the NKF-ASN Task Force Recommendations. Performed By: #### 4 6449 #### [facility] [address] [place], [place] [address] Fritz Egan M.D. [id number] Chloride [Moles/Vol] 108 mmol/L Normal 98-108 [facility] Comment on above: Order Comment: [facility] has implemented the eGFR calculation approach that does not have a coefficient for race that conforms to the NKF-ASN Task Force Recommendations. Performed By: #### 4 6449 #### [facility] [address] [place], [place] [address] Fritz Egan M.D. [id number] Creatinine [Mass/Vol] 0.96 mg/dL Normal 0.80-1.30 [facility] Comment on above: Order Comment: [facility] has implemented the eGFR calculation approach that does not have a coefficient for race that conforms to the NKF-ASN Task Force Recommendations. Performed By: #### 4 6449 #### [facility] [address] [place] [address] Fritz Egan M.D. [id number] EGFR 85 mL/min/1.73 m2 Normal >=60 [facility] Comment on above: Order Comment: [facility] has implemented the eGFR calculation approach that does not have a coefficient for race that conforms to the NKF-ASN Task Force Recommendations. Result Comment: Qi mated GFR was calculated using the 2020 CKD-EPI creatinine equation. Performed By: #### 4 6449 #### [facility] [address] [place] [address] Fritz Egan M.D. [id number] Glucose [Mass/Vol] 119 mg/dL High 65-99 [facility] Comment on above: Order Comment: [facility] has implemented the eGFR calculation approach that does not have a coefficient for race that conforms to the NKF-ASN Task Force Recommendations. Performed By: #### 4 6449 #### [facility] [address] [place] [address] Fritz Egan M.D. [id number] HCO3 (Bld) [Moles/Vol] 24 mmol/L Normal 21-32 [facility] Comment on above: Order Comment: [facility] has implemented the eGFR calculation approach that does not have a coefficient for race that conforms to the NKF-ASN Task Force Recommendations. Performed By: #### 4 6449 #### [facility] [address] [place], [place] [address] Fritz Egan M.D. [id number] Phosphate [Mass/Vol] 2.9 mg/dL Normal 2.3-3.7 [facility] Comment on above: Order Comment: [facility] has implemented the eGFR calculation approach that does not have a coefficient for race that conforms to the NKF-ASN Task Force Recommendations. Performed By: #### 4 6449 #### [facility] [address] [place], [place] [address] Fritz Egan M.D. [id number] Potassium [Moles/Vol] 3.9 mmol/L Normal 3.5-5.1 [facility] Comment on above: Order Comment: [facility] has implemented the eGFR calculation approach that does not have a coefficient for race that conforms to the NKF-ASN Task Force Recommendations. Result Comment: Slig htly Hemolyzed Performed By: #### 4 6449 #### [facility] [address] [place] [address] Fritz Egan M.D. [id number] Sodium [Moles/Vol] 140 mmol/L Normal 135-145 [facility] Comment on above: Order Comment: [facility] has implemented the eGFR calculation approach that does not have a coefficient for race that conforms to the NKF-ASN Task Force Recommendations. Performed By: #### 4 6449 #### [facility] [address] [place] [address] Fritz Egan M.D. [id number] Urea nitrogen [Mass/Vol] 8 mg/dL Normal 8-25 [facility] Comment on above: Order Comment: [facility] has implemented the eGFR calculation approach that does not have a coefficient for race that conforms to the NKF-ASN Task Force Recommendations. Performed By: #### 4 6449 #### [facility] [address] [place], [place] [address] Fritz Egan M.D. [id number] Urea nitrogen/Creatinine [Mass ratio] 8.3 mg/mg Low 10.0-20.0 [facility] Comment on above: Order Comment: [facility] has implemented the eGFR calculation approach that does not have a coefficient for race that conforms to the NKF-ASN Task Force Recommendations. Performed By: #### 4 6449 #### [facility] [address] [place], [place] [address] Fritz Egan M.D. [id number] Renal function 2000 panelOrd ered By: Lucretia Mesa on 11-22-2023 Albumin [Mass/Vol] 3.2 g/dL 3.2 - 5.2 g/dL [facility] Anion gap [Moles/Vol] 12 mmol/L 10 - 2 0 mmol/L [facility] Calcium [Mass/Vol] 8.3 mg/dL Low 8.4 - 10. 2 mg/dL [facility] Chloride [Moles/Vol] 108 mmol/L 98 - 10 8 mmol/L [facility] Creatinine [Mass/Vol] 0.96 mg/dL 0.80 - 1.30 mg/dL [facility] GFR/1.73 sq M.predicted CKD-EPI (S/P/Bld) [Vol rate/Area] 85 - PINF [facility] Comment on above: Estimated GFR was ca lculated using the 2020 CKD-EPI creatinine equation. Glucose [Mass/Vol] 119 mg/dL High 65 - 99 mg/dL [facility] HCO3 [Moles/Vol] 24 mmol/L 21 - 32 mmol/L [facility] Interpretation and review of laboratory results Abnormal [facility] Phosphate [Mass/Vol] 2.9 mg/dL 2.3 - 3 .7 mg/dL [facility] Potassium [Moles/Vol] 3.9 mmol/L 3.5 - 5.1 mmol/L [facility] Comment on above: Slightly Hemolyzed Sodium [Moles/Vol] 140 mmol/L 135 - 145 mmol/L [facility] Urea nitrogen [Mass/Vol] 8 mg/dL 8 - 25 mg/dL [facility] Urea nitrogen/Creatinine [Mass ratio] 8.3 mg/mg Low 10.0 - 20.0 [facility] has implemented the eGFR calculation approach that does not have a coefficient for race that conforms to the NKF-ASN Task Force Recommendations. [facility] CBC Auto Differentialon Basophils (Bld) [#/Vol] 0.05 10*3/uL [facility] Basophils/100 WBC (Bld) 0.7 % [facility] Eosinophils (Bld) [#/Vol] 0.18 10*3/uL [facility] Eosinophils/100 WBC (Bld) 2.7 % [facility] Erythrocyte distribution width (RBC) [Entitic vol] 12.8 % 11.6 - 14.8 % [facility] Hematocrit (Bld) [Volume fraction] 35.0 % Low 41.0 - 53.0 % [facility] Hemoglobin (Bld) [Mass/Vol] 12.0 g/dL Low 13.5 - 17.5 g/dL [facility] Immature granulocytes (Bld) [#/Vol] 0.02 10*3/uL [facility] Immature granulocytes/100 WBC (Bld) 0.30 % [facility] Comment on above: The IG parameter is the percentage of metamyelocytes, myelocytes and promyelocytes. An immature granulocyte count (IG) of 1% or more suggests the possibility of infection, an IG count of 3% is very likely related to an infection. Interpretation and review of laboratory results Abnormal [facility] Lymphocytes (Bld) [#/Vol] 0.77 10*3/uL Low [facility] Lymphocytes/100 WBC (Bld) 11.4 % [facility] MCH (RBC) [Entitic mass] 31.3 pg 26.0 - 34.[address] [facility] MCHC (RBC) [Mass/Vol] 34.3 g/dL 31.0 - 37.0 g/dL [facility] MCV (RBC) [Entitic vol] 91.1 fL 80.0 - 100.[address] [facility] Monocytes (Bld) [#/Vol] 1.09 10*3/uL High [facility] Monocytes/100 WBC (Bld) 16.2 % [facility] Neutrophils (Bld) [#/Vol] 4.63 10*3/uL [facility] Neutrophils/100 WBC (Bld) 68.7 % [facility] Nucleated RBC (Bld) [#/Vol] 0.00 10*3/uL [facility] Nucleated RBC/100 WBC (Bld) [Ratio] 0.0 % [facility] Platelet mean volume (Bld) [Entitic vol] 10.5 fL 9.4 - 12.[address] [facility] Platelets (Bld) [#/Vol] 129 10*3/uL Low [facility] RBC (Bld) [#/Vol] 3.84 10*6/uL Low [facility] WBC (Bld) [#/Vol] 6.74 10*3/uL [facility] CBC WITH AUTO DIFFERENTIALon 11-21-2023 AUTO NRBC 0.0 % Normal [facility] Comment on above: Performed By: #### L [id number] #### LAB [address] [place] [address] Fritz Egan M.D. [id number] AUTO NRBC ABS COUNT 0.00 K/mcL Normal 0.00-0.00 [facility] Comment on above: Performed By: #### L [id number] #### LAB [address] [place] [address] Fritz Egan M.D. [id number] BASOPHILS ABSOLUTE COUNT 0.05 K/mcL Normal 0.00-0.30 [facility] Comment on above: Performed By: #### L [id number] #### LAB [address] [place] [address] Fritz Egan M.D. [id number] Basophils/100 WBC (Bld) 0.7 % [facility] Comment on above: Performed By: #### L [id number] #### LAB [address] [place] [address] Fritz Egan M.D. [id number] Eosinophils (Bld) [#/Vol] 0.18 10*3/uL Normal 0.00-0.50 [facility] Comment on above: Performed By: #### L [id number] #### LAB [address] [place] [address] Fritz Egan M.D. [id number] Eosinophils/100 WBC (Bld) 2.7 % Normal [facility] Comment on above: Performed By: #### L [id number] #### LAB [address] [place] [address] Fritz Egan M.D. [id number] Erythrocyte distribution width (RBC) [Ratio] 12.8 % Normal 11.6-14.8 [facility] Comment on above: Performed By: #### L [id number] #### [facility] [address] [place] [address] Fritz Egan M.D. [id number] Hematocrit (Bld) [Volume fraction] 35.0 % Low 41.0-53.0 [facility] Comment on above: Performed By: #### L [id number] #### [facility] [address] [place] [address] Fritz Egan M.D. [id number] Hemoglobin (Bld) [Mass/Vol] 12.0 g/dL Low 13.5-17.5 [facility] Comment on above: Performed By: #### L [id number] #### [facility] [address] [place] [address] Fritz Egan M.D. [id number] IG ABSOLUTE 0.02 K/mcL Normal 0.00-0.30 [facility] Comment on above: Performed By: #### L [id number] #### LAB [address] [place] [address] Fritz Egan M.D. [id number] IG PERCENT 0.30 % [facility] Comment on above: Result Comment: The IG parameter is the percentage of metamyelocytes, myelocytes and promyelocytes. An immature granulocyte count (IG) of 1% or more suggests the possibility of infection, an IG count of 3% is very likely related to an infection. Performed By: #### L [id number] #### LAB [address] [place] [address] Fritz Egan M.D. [id number] Lymphocytes (Bld) [#/Vol] 0.77 10*3/uL Low 0.90-4.00 [facility] Comment on above: Performed By: #### L [id number] #### LAB [address] [place] [address] Fritz Egan M.D. [id number] Lymphocytes/100 WBC (Bld) 11.4 % Normal [facility] Comment on above: Performed By: #### L [id number] #### [facility] [address] [place] [address] Fritz Egan M.D. [id number] MCH (RBC) [Entitic mass] 31.3 pg Normal 26.0-34.0 [facility] Comment on above: Performed By: #### L [id number] #### [facility] [address] [place] [address] Fritz Egan M.D. [id number] MCV (RBC) [Entitic vol] 91.1 fL Normal 80.0-100.0 [facility] Comment on above: Performed By: #### L [id number] #### [facility] [address] [place] [address] Fritz Egan M.D. [id number] MEAN CORPUSCULAR HEMOGLOBIN CONC 34.3 g/dL Normal 31.0-37.0 [facility] Comment on above: Performed By: #### L [id number] #### [facility] [address] [place] [address] rFitz Egan M.D. [id number] Monocytes (Bld) [#/Vol] 1.09 10*3/uL High 0.30-0.90 [facility] Comment on above: Performed By: #### L [id number] #### [facility] [address] [place] [address] Fritz Egan M.D. [id number] Monocytes/100 WBC (Bld) 16.2 % Normal [facility] Comment on above: Performed By: #### L [id number] #### [facility] [address] [place] [address] Fritz Egan M.D. [id number] NEUTROPHILS ABSOLUTE COUNT 4.63 K/mcL Normal 1.70-7.00 [facility] Comment on above: Performed By: #### L [id number] #### [facility] [address] [place] [address] Fritz Egan M.D. [id number] Neutrophils/100 WBC (Bld) 68.7 % Normal [facility] Comment on above: Performed By: #### L [id number] #### [facility] [address] [place] [address] Fritz Egan M.D. [id number] Platelet mean volume (Bld) [Entitic vol] 10.5 fL Normal 9.4-12.4 [facility] Comment on above: Performed By: #### L [id number] #### [facility] [address] [place] [address] Fritz Egan M.D. [id number] Platelets (Bld) [#/Vol] 129 10*3/uL Low 150-400 [facility] Comment on above: Performed By: #### L [id number] #### LAB [address] [place] [address] Fritz Egan M.D. [id number] RBC (Bld) [#/Vol] 3.84 10*6/uL Low 4.50-5.90 [facility] Comment on above: Performed By: #### L [id number] #### LAB [address] [place] [address] Fritz Egan M.D. [id number] WBC (Bld) [#/Vol] 6.74 10*3/uL Normal 4.50-11.00 [facility] Comment on above: Performed By: #### L [id number] #### LAB [address] [place] [address] Fritz Egan M.D. [id number] Gastrointestinal pathogens D NA and RNA panel JACK+non-probe (Stl)Ordered By: Mikala Allan on 11-21-2023 Adenovirus 40+41 DNA JACK+non-probe Ql (Stl) Not detected Not Detected [facility] Astrovirus subtypes 1-8 RNA JACK+non-probe Ql (Stl) Not detected Not Detected [facility] C. cayetanensis DNA JACK+non-probe Ql (Stl) Not detected Not Detected [facility] C. coli+jejuni+upsaliens is DNA JACK+non-probe Ql (Stl) Detected Abnormal Not Detected [facility] Comment on above: Campylobacter is a f ood-borne pathogen that has been associated with contaminated produce, water, poultry, and dairy products. It is a common cause of mild to severe bacterial enteritis which can lead to extraintestinal infection. Most patients recover without antimicrobial therapy. Antibiotics are recommended for severe illness. C. difficile toxin A+B tcdA+tcdB genes JACK+non-probe Ql (Stl) Not detected Not Detected [facility] Cryptosporidium sp DNA JACK+non-probe Ql (Stl) Not detected Not Detected [facility] E. coli enteroaggregative Vu plasmid aggR+aatA genes JACK+non-probe Ql (Stl) Not detected Not Detected [facility] E. coli enteropathogenic eae gene JACK+non-probe Ql (Stl) Not detected Not Detected [facility] E. coli enterotoxigenic ltA+st1a+st1b genes JACK+non-probe Ql (Stl) Not detected Not Detected [facility] E. coli stx1+stx2 genes JACK+non-probe Ql (Stl) Not detected Not Detected [facility] E. histolytica DNA JACK+non-probe Ql (Stl) Not detected Not Detected [facility] G. lamblia DNA JACK+non-probe Ql (Stl) Not detected Not Detected [facility] Interpretation and review of laboratory results Abnormal [facility] Norovirus genogroup I+II RNA JACK+non-probe Ql (Stl) Not detected Not Detected [facility] P. shigelloides DNA JACK+non-probe Ql (Stl) Not detected Not Detected [facility] Rotavirus A RNA JACK+non-probe Ql (Stl) Not detected Not Detected [facility] S. enterica+bongori DNA JACK+non-probe Ql (Stl) Not detected Not Detected [facility] Sapovirus genogroups I+II+IV+V RNA JACK+non-probe Ql (Stl) Not detected Not Detected [facility] Shigella species+EIEC invasion plasmid antigen H ipaH gene JACK+non-probe Ql (Stl) Not detected Not Detected [facility] V. cholerae DNA JACK+non-probe Ql (Stl) Not detected Not Detected [facility] V. cholerae+parahaemolyt icus+vulnificus DNA JACK+non-probe Ql (Stl) Not detected Not Detected [facility] Y. enterocolitica DNA JACK+non-probe Ql (Stl) Not detected Not Detected [facility] Results of PCR testi ng for stool pathogens must be taken into clinical context when making treatment decisions. Most gastrointestinal infections due to common bacterial and viral causes are self-limited in nature and do not require antimicrobial therapy. The use of antimicrobial therapy must be carefully weighed against unintended and potentially harmful consequences. The role of antimicrobial therapy depends on the implicated pathogen. In general, antimicrobial agents are only used to treat parasitic infections as well as select bacterial infections. [facility] MAGNESIUM LEVELon 11-21-2023 Magnesium [Mass/Vol] 1.8 mg/dL Normal 1.6-2.4 [facility] Comment on above: Performed By: #### 4 6109 #### LAB [address] [place], [place] [address] Fritz Egan M.D. [id number] Magnesiumon 11-21-2023 Magnesium [Mass/Vol] 1.8 mg/dL 1.6 - 2 .4 mg/dL [facility] Magnesium [Mass/Vol]on 11-20 Interpretation and review of laboratory results Normal [facility] No Panel Informationon 11-20 [facility] RENAL FUNCTION PANELon 11-20 Albumin [Mass/Vol] 3.2 g/dL Normal 3.2-5.2 [facility] Comment on above: Order Comment: [facility] has implemented the eGFR calculation approach that does not have a coefficient for race that conforms to the NKF-ASN Task Force Recommendations. Performed By: #### 4 6449 #### LAB [address] [place], [place] [address] Fritz Egan M.D. [id number] Anion gap [Moles/Vol] 13 mmol/L Normal 10-20 [facility] Comment on above: Order Comment: [facility] has implemented the eGFR calculation approach that does not have a coefficient for race that conforms to the NKF-ASN Task Force Recommendations. Performed By: #### 4 6449 #### LAB [address] [place], [place] [address] Fritz gEan M.D. [id number] Calcium [Mass/Vol] 8.1 mg/dL Low 8.4-10.2 [facility] Comment on above: Order Comment: [facility] has implemented the eGFR calculation approach that does not have a coefficient for race that conforms to the NKF-ASN Task Force Recommendations. Performed By: #### 4 6449 #### [facility] LAB [address] [place], [place] [address] Fritz Egan M.D. [id number] Chloride [Moles/Vol] 108 mmol/L Normal 98-108 [facility] Comment on above: Order Comment: [facility] has implemented the eGFR calculation approach that does not have a coefficient for race that conforms to the NKF-ASN Task Force Recommendations. Performed By: #### 4 6449 #### LAB [address] [place] [address] Fritz Egan M.D. [id number] Creatinine [Mass/Vol] 0.96 mg/dL Normal 0.80-1.30 [facility] Comment on above: Order Comment: [facility] has implemented the eGFR calculation approach that does not have a coefficient for race that conforms to the NKF-ASN Task Force Recommendations. Performed By: #### 4 6449 #### LAB [address] [place] [address] Fritz Egan M.D. [id number] EGFR 85 mL/min/1.73 m2 Normal >=60 [facility] Comment on above: Order Comment: [facility] has implemented the eGFR calculation approach that does not have a coefficient for race that conforms to the NKF-ASN Task Force Recommendations. Result Comment: Qi mated GFR was calculated using the 2020 CKD-EPI creatinine equation. Performed By: #### 4 6449 #### LAB [address] [place] [address] Fritz Egan M.D. [id number] Glucose [Mass/Vol] 105 mg/dL High 65-99 [facility] Comment on above: Order Comment: [facility] has implemented the eGFR calculation approach that does not have a coefficient for race that conforms to the NKF-ASN Task Force Recommendations. Performed By: #### 4 6449 #### LAB [address] [place] [address] Fritz Egan M.D. [id number] HCO3 (Bld) [Moles/Vol] 22 mmol/L Normal 21-32 [facility] Comment on above: Order Comment: [facility] has implemented the eGFR calculation approach that does not have a coefficient for race that conforms to the NKF-ASN Task Force Recommendations. Performed By: #### 4 6449 #### LAB [address] [place] [address] Fritz Egan M.D. [id number] Phosphate [Mass/Vol] 2.1 mg/dL Low 2.3-3.7 [facility] Comment on above: Order Comment: [facility] has implemented the eGFR calculation approach that does not have a coefficient for race that conforms to the NKF-ASN Task Force Recommendations. Performed By: #### 4 6449 #### LAB [address] [place] [address] Fritz Egan M.D. [id number] Potassium [Moles/Vol] 3.7 mmol/L Normal 3.5-5.1 [facility] Comment on above: Order Comment: [facility] has implemented the eGFR calculation approach that does not have a coefficient for race that conforms to the NKF-ASN Task Force Recommendations. Performed By: #### 4 6449 #### LAB [address] [place] [address] Fritz Egan M.D. [id number] Sodium [Moles/Vol] 139 mmol/L Normal 135-145 [facility] Comment on above: Order Comment: [facility] has implemented the eGFR calculation approach that does not have a coefficient for race that conforms to the NKF-ASN Task Force Recommendations. Performed By: #### 4 6449 #### MH LAB [address] [place] [address] Fritz Egan M.D. [id number] Urea nitrogen [Mass/Vol] 13 mg/dL Normal 8-25 [facility] Comment on above: Order Comment: [facility] has implemented the eGFR calculation approach that does not have a coefficient for race that conforms to the NKF-ASN Task Force Recommendations. Performed By: #### 4 6449 #### LAB [address] [place] [id number] Fritz Egan M.D. [id number] Urea nitrogen/Creatinine [Mass ratio] 13.5 mg/mg Normal 10.0-20.0 [facility] Comment on above: Order Comment: [facility] has implemented the eGFR calculation approach that does not have a coefficient for race that conforms to the NKF-ASN Task Force Recommendations. Performed By: #### 4 6449 #### MH LAB [address] [place], [place] [address] Fritz Egan M.D. [id number] Renal function 2000 panelon 11-21-2023 Albumin [Mass/Vol] 3.2 g/dL 3.2 - 5.2 g/dL [facility] Anion gap [Moles/Vol] 13 mmol/L 10 - 2 0 mmol/L [facility] Calcium [Mass/Vol] 8.1 mg/dL Low 8.4 - 10. 2 mg/dL [facility] Chloride [Moles/Vol] 108 mmol/L 98 - 10 8 mmol/L [facility] Creatinine [Mass/Vol] 0.96 mg/dL 0.80 - 1.30 mg/dL [facility] GFR/1.73 sq M.predicted CKD-EPI (S/P/Bld) [Vol rate/Area] 85 - PINF [facility] Comment on above: Estimated GFR was ca lculated using the 2020 CKD-EPI creatinine equation. Glucose [Mass/Vol] 105 mg/dL High 65 - 99 mg/dL [facility] HCO3 [Moles/Vol] 22 mmol/L 21 - 32 mmol/L [facility] Interpretation and review of laboratory results Abnormal [facility] Phosphate [Mass/Vol] 2.1 mg/dL Low 2.3 - 3 .7 mg/dL [facility] Potassium [Moles/Vol] 3.7 mmol/L 3.5 - 5.1 mmol/L [facility] Sodium [Moles/Vol] 139 mmol/L 135 - 145 mmol/L [facility] Urea nitrogen [Mass/Vol] 13 mg/dL 8 - 25 mg/dL [facility] Urea nitrogen/Creatinine [Mass ratio] 13.5 mg/mg 10.0 - 20.0 [facility] Services has implemented the eGFR calculation approach that does not have a coefficient for race that conforms to the NKF-ASN Task Force Recommendations. [facility] STOOL/GI PCR PANELon 024 STOOL/GI PCR PANEL CAMPYLOBACTER SPECIE S DETECTED Campylobacter is a food-borne pathogen that has been associated with contaminated produce, water, poultry, and dairy products. It is a common cause of mild to severe bacterial enteritis which can lead to extraintestinal infection. Most patients recover without antimicrobial therapy. Antibiotics are recommended for severe illness. CLOSTRIDIUM DIFFICILE TOXIN A/B Not Detected PLESIOMONAS SHIGELLOIDES Not Detected SALMONELLA SPECIES Not Detected VIBRIO SPECIES Not Detected VIBRIO CHLOREAE Not Detected YERSINIA ENTEROCOLITICA Not Detected ENTEROAGGREGATIVE E. COLI (EAEC) Not Detected ENTEROPATHOGENIC E. COLI (EPEC) Not Detected ENTEROTOXIGENIC E. COLI (ETEC) Not Detected SHIGA-LIKE TOXIN-PRODUCING E. COLI (STEC) 1/2 Not Detected SHIGELLA/ENTEROINVASIVE E. COLI (EIEC) Not Detected CRYPTOSPORIDIUM SPECIES Not Detected CYCLOSPORA CAYETANENSIS Not Detected ENTAMOEBA HISTOLYTICA Not Detected GIARDIA LAMBLIA Not Detected ADENOVIRUS F 40/41 Not Detected ASTROVIRUS Not Detected NOROVIRUS GI/GII Not Detected ROTAVIRUS A Not Detected SAPOVIRUS Not Detected Abnormal Not Detected [facility] Comment on above: Order Comment: Resul ts of PCR testing for stool pathogens must be taken into clinical context when making treatment decisions. Most gastrointestinal infections due to common bacterial and viral causes are self-limited in nature and do not require antimicrobial therapy. The use of antimicrobial therapy must be carefully weighed against unintended and potentially harmful consequences. The role of antimicrobial therapy depends on the implicated pathogen. In general, antimicrobial agents are only used to treat parasitic infections as well as select bacterial infections. Performed By: #### L [id number] #### MH LAB [address] [place], [place] [address] Fritz Egan M.D. [id number] URINALYSISon 11-21-2023 BACTERIA, URINE None Seen Normal None Seen [facility] Comment on above: Order Comment: Micro scopic examination is performed on all urinalysis samples and only positive findings are reported. The test for blood on the chemical analytic portion of urinalysis may also be positive due to hemoglobinuria and myoglobinuria and if red blood cells are present they are quantified by microscopic examination. Performed By: #### 4 6625 #### MH LAB [address] [place] [address] Fritz Egan M.D. [id number] BILIRUBIN, URINE Negative Normal Negative [facility] Comment on above: Order Comment: Micro scopic examination is performed on all urinalysis samples and only positive findings are reported. The test for blood on the chemical analytic portion of urinalysis may also be positive due to hemoglobinuria and myoglobinuria and if red blood cells are present they are quantified by microscopic examination. Performed By: #### 4 6625 #### LAB [address] [place] [address] Fritz Egan M.D. [id number] BLOOD, URINE Negative Normal Negative [facility] Comment on above: Order Comment: Micro scopic examination is performed on all urinalysis samples and only positive findings are reported. The test for blood on the chemical analytic portion of urinalysis may also be positive due to hemoglobinuria and myoglobinuria and if red blood cells are present they are quantified by microscopic examination. Performed By: #### 4 6625 #### LAB [address] [place] [address] Fritz Egan M.D. [id number] Clarity (U) Clear Normal Clear [facility] Comment on above: Order Comment: Micro scopic examination is performed on all urinalysis samples and only positive findings are reported. The test for blood on the chemical analytic portion of urinalysis may also be positive due to hemoglobinuria and myoglobinuria and if red blood cells are present they are quantified by microscopic examination. Performed By: #### 4 6625 #### LAB [address] [place] [address] Fritz Egan M.D. [id number] Color (U) Yellow Normal Colorless, Yellow [facility] Comment on above: Order Comment: Micro scopic examination is performed on all urinalysis samples and only positive findings are reported. The test for blood on the chemical analytic portion of urinalysis may also be positive due to hemoglobinuria and myoglobinuria and if red blood cells are present they are quantified by microscopic examination. Performed By: #### 4 6625 #### LAB [address] [place] [address] Fritz Egan M.D. [id number] Glucose Ql (U) Negative Normal Negative [facility] Comment on above: Order Comment: Micro scopic examination is performed on all urinalysis samples and only positive findings are reported. The test for blood on the chemical analytic portion of urinalysis may also be positive due to hemoglobinuria and myoglobinuria and if red blood cells are present they are quantified by microscopic examination. Performed By: #### 4 6625 #### LAB [address] [place] [address] Fritz Egan M.D. [id number] Ketones Ql (U) Trace Abnormal Negative [facility] Comment on above: Order Comment: Micro scopic examination is performed on all urinalysis samples and only positive findings are reported. The test for blood on the chemical analytic portion of urinalysis may also be positive due to hemoglobinuria and myoglobinuria and if red blood cells are present they are quantified by microscopic examination. Performed By: #### 4 6625 #### LAB [address] [place] [address] Fritz Egan M.D. [id number] Leukocyte esterase Test strip Ql (U) Negative Normal Negative [facility] Comment on above: Order Comment: Micro scopic examination is performed on all urinalysis samples and only positive findings are reported. The test for blood on the chemical analytic portion of urinalysis may also be positive due to hemoglobinuria and myoglobinuria and if red blood cells are present they are quantified by microscopic examination. Performed By: #### 4 6625 #### LAB [address] [place] [address] Fritz Egan M.D. [id number] MUCUS, URINE Rare Normal None Seen, Rare [facility] Comment on above: Order Comment: Micro scopic examination is performed on all urinalysis samples and only positive findings are reported. The test for blood on the chemical analytic portion of urinalysis may also be positive due to hemoglobinuria and myoglobinuria and if red blood cells are present they are quantified by microscopic examination. Performed By: #### 4 6625 #### LAB [address] [place] [address] Fritz Egan M.D. [id number] NITRITE, URINE Negative Normal Negative [facility] Comment on above: Order Comment: Micro scopic examination is performed on all urinalysis samples and only positive findings are reported. The test for blood on the chemical analytic portion of urinalysis may also be positive due to hemoglobinuria and myoglobinuria and if red blood cells are present they are quantified by microscopic examination. Performed By: #### 4 6625 #### LAB [address] [place] [address] Fritz Egan M.D. [id number] pH (U) 5.5 [pH] Normal 5.0-7.0 [facility] Comment on above: Order Comment: Micro scopic examination is performed on all urinalysis samples and only positive findings are reported. The test for blood on the chemical analytic portion of urinalysis may also be positive due to hemoglobinuria and myoglobinuria and if red blood cells are present they are quantified by microscopic examination. Performed By: #### 4 6625 #### LAB [address] [place] [address] Fritz Egan M.D. [id number] PROTEIN, URINE Negative Normal Negative [facility] Comment on above: Order Comment: Micro scopic examination is performed on all urinalysis samples and only positive findings are reported. The test for blood on the chemical analytic portion of urinalysis may also be positive due to hemoglobinuria and myoglobinuria and if red blood cells are present they are quantified by microscopic examination. Performed By: #### 4 6625 #### LAB [address] [place] [address] Fritz Egan M.D. [id number] RBC LM.HPF (Urine sed) [#/Area] 1 /[HPF] Normal 0-3 [facility] Comment on above: Order Comment: Micro scopic examination is performed on all urinalysis samples and only positive findings are reported. The test for blood on the chemical analytic portion of urinalysis may also be positive due to hemoglobinuria and myoglobinuria and if red blood cells are present they are quantified by microscopic examination. Performed By: #### 4 6625 #### LAB [address] [place], [place] [address] Fritz Egan M.D. [id number] RENAL EPITHELIAL < High 0-0 [facility] Comment on above: Order Comment: Micro scopic examination is performed on all urinalysis samples and only positive findings are reported. The test for blood on the chemical analytic portion of urinalysis may also be positive due to hemoglobinuria and myoglobinuria and if red blood cells are present they are quantified by microscopic examination. Performed By: #### 4 6625 #### [facility] [address] [place] [address] Fritz Egan M.D. [id number] Specific gravity (U) [Rel density] 1.013 Normal 1.005-1.025 [facility] Comment on above: Order Comment: Micro scopic examination is performed on all urinalysis samples and only positive findings are reported. The test for blood on the chemical analytic portion of urinalysis may also be positive due to hemoglobinuria and myoglobinuria and if red blood cells are present they are quantified by microscopic examination. Performed By: #### 4 6625 #### [facility] [address] [place] [address] Fritz Egan M.D. [id number] UROBILINOGEN, URINE <2.0 Normal <2.0 [facility] Comment on above: Order Comment: Micro scopic examination is performed on all urinalysis samples and only positive findings are reported. The test for blood on the chemical analytic portion of urinalysis may also be positive due to hemoglobinuria and myoglobinuria and if red blood cells are present they are quantified by microscopic examination. Performed By: #### 4 6625 #### [facility] [address] [place] [address] Fritz Egan M.D. [id number] WBC LM.HPF (Urine sed) [#/Area] 2 /[HPF] Normal 0-5 [facility] Comment on above: Order Comment: Micro scopic examination is performed on all urinalysis samples and only positive findings are reported. The test for blood on the chemical analytic portion of urinalysis may also be positive due to hemoglobinuria and myoglobinuria and if red blood cells are present they are quantified by microscopic examination. Performed By: #### 4 6649 #### [facility] [address] [facility] [place], [place] [address] Fritz Egan M.D. [id number] UrinalysisOrdered By: Keeley Moore on 11-21-2023 Bacteria Auto Ql (U) None Seen None Se en /hpf [facility] Bilirubin Ql (U) Negative Negative [facility] th Clarity Refractometry automated (U) Clear Clear [facility] Color (U) Yellow Colorless, Yellow [facility] Epithelial cells.renal Computer assisted (U) [#/Area] High [facility] Glucose Auto test strip (U) [Mass/Vol] Negative Negative mg/dL [facility] Hemoglobin Auto test strip Ql (U) Negative Negative [facility] Interpretation and review of laboratory results Abnormal [facility] Ketones (U) [Mass/Vol] Trace Abnormal Negative mg/dL [facility] Leukocyte esterase Auto test strip Ql (U) Negative Negative [facility] Mucus Auto (Urine sed) [#/Area] Rare None Seen, Rare /lpf [facility] Nitrite Auto test strip Ql (U) Negative Negative [facility] pH (U) 5.5 [pH] 5.0 - 7.0 [facility] Protein (U) [Mass/Vol] Negative Negative mg/dL [facility] RBC Auto (Urine sed) [#/Area] 1 [facility] Specific gravity (U) [Rel density] 1.013 1.005 - 1.025 [facility] Urobilinogen (U) [Mass/Vol] mg/dL NINF - 2.0 mg/dL [facility] WBC Auto (Urine sed) [#/Area] 2 [facility] Microscopic examinat ion is performed on all urinalysis samples and only positive findings are reported. The test for blood on the chemical analytic portion of urinalysis may also be positive due to hemoglobinuria and myoglobinuria and if red blood cells are present they are quantified by microscopic examination. [facility] BASIC METABOLIC PANELon Anion gap [Moles/Vol] 15 mmol/L Normal 10-20 [facility] Comment on above: Order Comment: [facility] has implemented the eGFR calculation approach that does not have a coefficient for race that conforms to the NKF-ASN Task Force Recommendations. Performed By: #### 4 6154 #### [facility] LAB [address] [place] [id number] Fritz Egan M.D. [id number] Calcium [Mass/Vol] 7.9 mg/dL Low 8.4-10.2 [facility] Comment on above: Order Comment: [facility] has implemented the eGFR calculation approach that does not have a coefficient for race that conforms to the NKF-ASN Task Force Recommendations. Performed By: #### 4 6124 #### LAB [address] [place] [address] Fritz Egan M.D. [id number] Chloride [Moles/Vol] 103 mmol/L Normal 98-108 [facility] Comment on above: Order Comment: [facility] has implemented the eGFR calculation approach that does not have a coefficient for race that conforms to the NKF-ASN Task Force Recommendations. Performed By: #### 4 6124 #### LAB [address] [place] [address] Fritz Egan M.D. [id number] Creatinine [Mass/Vol] 1.16 mg/dL Normal 0.80-1.30 [facility] Comment on above: Order Comment: [facility] has implemented the eGFR calculation approach that does not have a coefficient for race that conforms to the NKF-ASN Task Force Recommendations. Performed By: #### 4 6124 #### LAB [address] [place] [address] Fritz Egan M.D. [id number] EGFR 68 mL/min/1.73 m2 Normal >=60 [facility] Comment on above: Order Comment: [facility] has implemented the eGFR calculation approach that does not have a coefficient for race that conforms to the NKF-ASN Task Force Recommendations. Result Comment: Qi mated GFR was calculated using the 2020 CKD-EPI creatinine equation. Performed By: #### 4 6124 #### LAB [address] [place] [address] Fritz Egan M.D. [id number] Glucose [Mass/Vol] 122 mg/dL High 65-99 [facility] Comment on above: Order Comment: [facility] has implemented the eGFR calculation approach that does not have a coefficient for race that conforms to the NKF-ASN Task Force Recommendations. Performed By: #### 4 6124 #### LAB [address] [place] [address] Fritz Egan M.D. [id number] HCO3 (Bld) [Moles/Vol] 21 mmol/L Normal 21-32 [facility] Comment on above: Order Comment: [facility] has implemented the eGFR calculation approach that does not have a coefficient for race that conforms to the NKF-ASN Task Force Recommendations. Performed By: #### 4 6124 #### LAB [address] [place] [address] Fritz Egan M.D. [id number] Potassium [Moles/Vol] 3.6 mmol/L Normal 3.5-5.1 [facility] Comment on above: Order Comment: [facility] has implemented the eGFR calculation approach that does not have a coefficient for race that conforms to the NKF-ASN Task Force Recommendations. Result Comment: Slig htly Hemolyzed Performed By: #### 4 6124 #### LAB [address] [place] [address] Fritz Egan M.D. [id number] Sodium [Moles/Vol] 135 mmol/L Normal 135-145 [facility] Comment on above: Order Comment: [facility] has implemented the eGFR calculation approach that does not have a coefficient for race that conforms to the NKF-ASN Task Force Recommendations. Performed By: #### 4 6124 #### LAB [address] [place] [address] Fritz Egan M.D. [id number] Urea nitrogen [Mass/Vol] 18 mg/dL Normal 8-25 [facility] Comment on above: Order Comment: [facility] has implemented the eGFR calculation approach that does not have a coefficient for race that conforms to the NKF-ASN Task Force Recommendations. Performed By: #### 4 6195 #### LAB [address] [place] [address] Fritz Egan M.D. [id number] Urea nitrogen/Creatinine [Mass ratio] 15.5 mg/mg Normal 10.0-20.0 [facility] Comment on above: Order Comment: [facility] has implemented the eGFR calculation approach that does not have a coefficient for race that conforms to the NKF-ASN Task Force Recommendations. Performed By: #### 4 6124 #### [facility] [address] [facility], [place] [address] Fritz Egan M.D. [id number] CBC Auto Differentialon Basophils (Bld) [#/Vol] 0.04 10*3/uL [facility] Basophils/100 WBC (Bld) 0.5 % [facility] Eosinophils (Bld) [#/Vol] 0.15 10*3/uL [facility] Eosinophils/100 WBC (Bld) 2.0 % [facility] Erythrocyte distribution width (RBC) [Entitic vol] 12.9 % 11.6 - 14.8 % [facility] Hematocrit (Bld) [Volume fraction] 37.3 % Low 41.0 - 53.0 % [facility] Hemoglobin (Bld) [Mass/Vol] 12.6 g/dL Low 13.5 - 17.5 g/dL [facility] Immature granulocytes (Bld) [#/Vol] 0.02 10*3/uL [facility] Immature granulocytes/100 WBC (Bld) 0.30 % [facility] Comment on above: The IG parameter is the percentage of metamyelocytes, myelocytes and promyelocytes. An immature granulocyte count (IG) of 1% or more suggests the possibility of infection, an IG count of 3% is very likely related to an infection. Interpretation and review of laboratory results Abnormal [facility] Lymphocytes (Bld) [#/Vol] 0.92 10*3/uL [facility] Lymphocytes/100 WBC (Bld) 12.2 % [facility] MCH (RBC) [Entitic mass] 30.7 pg 26.0 - 34.[address] [facility] MCHC (RBC) [Mass/Vol] 33.8 g/dL 31.0 - 37.0 g/dL [facility] MCV (RBC) [Entitic vol] 91.0 fL 80.0 - 100.[address] [facility] Monocytes (Bld) [#/Vol] 1.15 10*3/uL High [facility] Monocytes/100 WBC (Bld) 15.3 % [facility] Neutrophils (Bld) [#/Vol] 5.26 10*3/uL [facility] Neutrophils/100 WBC (Bld) 69.7 % [facility] Nucleated RBC (Bld) [#/Vol] 0.00 10*3/uL [facility] Nucleated RBC/100 WBC (Bld) [Ratio] 0.0 % [facility] Platelet mean volume (Bld) [Entitic vol] 10.2 fL 9.4 - 12.[address] [facility] Platelets (Bld) [#/Vol] 138 10*3/uL Low [facility] RBC (Bld) [#/Vol] 4.10 10*6/uL Low [facility] WBC (Bld) [#/Vol] 7.54 10*3/uL [facility] CBC WITH AUTO DIFFERENTIALon 11-20-2023 AUTO NRBC 0.0 % [facility] Comment on above: Performed By: #### L [id number] #### LAB [address] [address] Fritz Egan M.D. [id number] AUTO NRBC ABS COUNT 0.00 K/mcL Normal 0.00-0.00 [facility] Comment on above: Performed By: #### L [id number] #### LAB [address] [address] Fritz Egan M.D. [id number] BASOPHILS ABSOLUTE COUNT 0.04 K/mcL Normal 0.00-0.30 [facility] Comment on above: Performed By: #### L [id number] #### LAB [address], [place] [address] Fritz Egan M.D. [id number] Basophils/100 WBC (Bld) 0.5 % [facility] Comment on above: Performed By: #### L [id number] #### LAB [address] [address] Fritz Egan M.D. [id number] Eosinophils (Bld) [#/Vol] 0.15 10*3/uL Normal 0.00-0.50 [facility] Comment on above: Performed By: #### L [id number] #### LAB [address] [place] [address] Fritz Egan M.D. [id number] Eosinophils/100 WBC (Bld) 2.0 % Normal [facility] Comment on above: Performed By: #### L [id number] #### LAB [address] [address] Fritz Egan M.D. [id number] Erythrocyte distribution width (RBC) [Ratio] 12.9 % Normal 11.6-14.8 [facility] Comment on above: Performed By: #### L [id number] #### LAB [address] [address] Fritz Egan M.D. [id number] Hematocrit (Bld) [Volume fraction] 37.3 % Low 41.0-53.0 [facility] Comment on above: Performed By: #### L [id number] #### LAB [address] [address] Fritz Egan M.D. [id number] Hemoglobin (Bld) [Mass/Vol] 12.6 g/dL Low 13.5-17.5 [facility] Comment on above: Performed By: #### L [id number] #### LAB [address] [place] [address] Fritz Egan M.D. [id number] IG ABSOLUTE 0.02 K/mcL Normal 0.00-0.30 [facility] Comment on above: Performed By: #### L [id number] #### LAB [address] [place] [address] Fritz Egan M.D. [id number] IG PERCENT 0.30 % Normal [facility] Comment on above: Result Comment: The IG parameter is the percentage of metamyelocytes, myelocytes and promyelocytes. An immature granulocyte count (IG) of 1% or more suggests the possibility of infection, an IG count of 3% is very likely related to an infection. Performed By: #### L [id number] #### LAB [address] [address] Fritz Egan M.D. [id number] Lymphocytes (Bld) [#/Vol] 0.92 10*3/uL Normal 0.90-4.00 [facility] Comment on above: Performed By: #### L [id number] #### LAB [address] [address] Fritz Egan M.D. [id number] Lymphocytes/100 WBC (Bld) 12.2 % Normal [facility] Comment on above: Performed By: #### L [id number] #### LAB [address] [address] Fritz Egan M.D. [id number] MCH (RBC) [Entitic mass] 30.7 pg Normal 26.0-34.0 [facility] Comment on above: Performed By: #### L [id number] #### LAB [address] [place] [address] Fritz Egan M.D. [id number] MCV (RBC) [Entitic vol] 91.0 fL Normal 80.0-100.0 [facility] Comment on above: Performed By: #### L [id number] #### LAB [address] [place] [address] Fritz Egan M.D. [id number] MEAN CORPUSCULAR HEMOGLOBIN CONC 33.8 g/dL Normal 31.0-37.0 [facility] Comment on above: Performed By: #### L [id number] #### LAB [address] [address] Fritz Egan M.D. [id number] Monocytes (Bld) [#/Vol] 1.15 10*3/uL High 0.30-0.90 [facility] Comment on above: Performed By: #### L [id number] #### LAB [address] [address] Fritz Egan M.D. [id number] Monocytes/100 WBC (Bld) 15.3 % Normal [facility] Comment on above: Performed By: #### L [id number] #### LAB [address] [address] Fritz Egan M.D. [id number] NEUTROPHILS ABSOLUTE COUNT 5.26 K/mcL Normal 1.70-7.00 [facility] Comment on above: Performed By: #### L [id number] #### LAB [address] [address] Fritz Egan M.D. [id number] Neutrophils/100 WBC (Bld) 69.7 % Normal [facility] Comment on above: Performed By: #### L [id number] #### LAB [address] [address] Fritz Egan M.D. [id number] Platelet mean volume (Bld) [Entitic vol] 10.2 fL Normal 9.4-12.4 [facility] Comment on above: Performed By: #### L [id number] #### LAB [address] [address] Fritz Egan M.D. [id number] Platelets (Bld) [#/Vol] 138 10*3/uL Low 150-400 [facility] Comment on above: Performed By: #### L [id number] #### LAB [address] [address] Fritz Egan M.D. [id number] RBC (Bld) [#/Vol] 4.10 10*6/uL Low 4.50-5.90 [facility] Comment on above: Performed By: #### L [id number] #### LAB [address] [address] Fritz Egan M.D. [id number] WBC (Bld) [#/Vol] 7.54 10*3/uL Normal 4.50-11.00 [facility] Comment on above: Performed By: #### L [id number] #### LAB [address] [place] [address] Fritz Egan M[address]D. [id number] CT ABDOMEN PELVIS WITH IV CO NTRAST ONLYon 11-20-2023 CT ABDOMEN PELVIS WITH IV CONTRAST ONLY EXAMINATION: CT ABDOMEN PELVIS WITH IV CONTRAST ONLY HISTORY: ORDERING SYSTEM PROVIDED HISTORY: LLQ abdominal pain, TECHNOLOGIST PROVIDED HISTORY: Illness/Other Reason for exam: Patient ambulatory to ED 4 with complaints of intermittent nausea and vomiting that started around 3-4 days ago along with diarrhea. Encounter Type: Initial Additional signs and symptoms: n ORDERING SYSTEM PROVIDED DIAGNOSIS CODES: COMPARISON: None TECHNIQUE: CT examination of the abdomen and pelvis following the administration of intravenous contrast. Coronal and sagittal reformations were performed. Dose reduction techniques were achieved by using automated exposure control and/or adjustment of mA and/or kV according to patient size and/or use of iterative reconstruction technique. CONTRAST: IOPAMIDOL 370 MG IODINE/ML (76 %) INTRAVENOUS SOLUTION - 75 mL, LOWER CHEST No significant abnormality. ABDOMEN AND PELVIS Liver: A few subcentimeter hypoattenuating liver lesions, measuring up to 6 mm, too small to characterize. Biliary System: Normal gallbladder. No biliary ductal dilation. Pancreas: Normal. Spleen: Multiple calcified granulomas. Adrenal Glands: Normal. Urinary System: Punctate 1 mm nonobstructing left renal stones. Hypoattenuating 1.7 cm lesion in the right kidney not meeting criteria for a simple cyst. Additional subcentimeter hypoattenuating right renal lesions, too small to characterize. No hydronephrosis or urolithiasis. Normal bladder. Reproductive organs: Unremarkable. Gastrointestinal Tract: Circumferential wall thickening with surrounding inflammatory stranding of the ascending colon and proximal transverse colon. Normal caliber bowel. Colonic diverticulosis without diverticulitis. Normal appendix. Vessels: Nonaneurysmal abdominal aorta with mild atherosclerotic calcifications.Patent abdominal vasculature. Lymph Nodes: A few mildly enlarged right abdominal mesenteric lymph nodes measuring up to 10 mm. Peritoneum: No ascites or pneumoperitoneum. MSK Soft tissues: Small fat containing umbilical hernia. Bones: No acute abnormality or suspicious lesion. IMPRESSION: 1. Colitis involving the ascending and proximal transverse colon, likely infectious or inflammatory. 2. Right abdominal mesenteric adenopathy, likely reactive. 3. Indeterminate right renal 1.7 cm lesion. Recommend further evaluating with nonemergent renal protocol CT or MRI. 4. Punctate left nephrolithiasis. Workstation ID: [id number] Dictated by: MARIAN PALACIOS on ThuNov 20, 2023 1:23:23 PM EDT Transcribed by: MARIAN PALACIOS on ThuNov 20, 2023 1:23:23 PM EDT Finalized by: MARIAN PALACIOS on ThuNov 20, 2023 1:23:23 PM EDT [facility] Comment on above: Order Comment: Injur y/Trauma or Illness?:Illness/Other How long have you had these symptoms (acute/chronic)?:Acute Reason for exam?:Patient ambulatory to ED 4 with complaints of intermittent nausea and vomiting that started around 3-4 days ago along with diarrhea. Type of Exam?:Initial Additional signs and symptoms?:n ED Prov Noteon 11-20-2023 ED Prov Note ED PROVIDER NOTE [facility] EMERGENCY DEPARTMENT NAME: Aiden Estrada AGE: 68 y.o. : 1955 VISIT DATE: 11/20/2023 CSN: [id number] PCP: Prashanth Mcintyre MD Chief Complaint Patient presents with Nausea Emesis Diarrhea Chief complaint nausea vomiting diarrhea History of present illness this is a 68-year-old male who is for 3 to 4 days has had anorexia nausea vomiting diarrhea he had some turkey a graduation democrat denies any recent travel or antibiotic use he did look in his barn for significant amount of hours in the heat. He denies any hematemesis medic easier melena. Denies history of diverticulitis there is just generalized cramping the pain does not localize anywhere. Denies history of bowel obstruction or any abdominal surgeries Denies chest pain chest pressure palpitations Denies shortness of breath. Denies any other neurologic symptoms Past Medical History: Diagnosis Date Hyperlipidemia Hypertension Past Surgical History: Procedure Laterality Date CT COLONOSCOPY 02/10/2020 CT COLONOSCOPY History reviewed. No pertinent family history. Social History Socioeconomic History Marital status: Tobacco Use Smoking status: Never Smokeless tobacco: Never Substance and Sexual Activity Alcohol use: Never Drug use: Never Social Determinants of Health Food Insecurity: No Food Insecurity (11/22/2023) Hunger Vital Sign Worried About Running Out of Food in the Last Year: Never true Ran Out of Food in the Last Year: Never true Transportation Needs: No Transportation Needs (11/22/2023) PRAPARE - Transportation Lack of Transportation (Medical): No Lack of Transportation (Non-Medical): No Housing Stability: Low Risk (11/22/2023) Housing Stability Vital Sign Unable to Pay for Housing in the Last Year: No Number of Places Lived in the Last Year: 1 Unstable Housing in the Last Year: No Previous Medications Medication Sig lisinopriL (PRINIVIL,ZESTRIL) 5 MG tablet Take by mouth daily . No Known Allergies Review of Systems All other systems reviewed and are negative. No data found. Physical Exam Vitals and nursing note reviewed. 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 Constitutional: Appearance: He is normal weight. He is ill-appearing. HENT: Head: Normocephalic and atraumatic. Right Ear: Tympanic membrane normal. Left Ear: Tympanic membrane normal. Nose: Nose normal. Mouth/Throat: Mouth: Mucous membranes are dry. Eyes: Extraocular Movements: Extraocular movements intact. Pupils: Pupils are equal, round, and reactive to light. Cardiovascular: Rate and Rhythm: Normal rate and regular rhythm. Musculoskeletal: Cervical back: Normal range of motion and neck supple. Pulmonary: Effort: Pulmonary effort is normal. Breath sounds: Normal breath sounds. Abdominal: General: Bowel sounds are normal. There is distension. Tenderness: There is abdominal tenderness. Skin: General: Skin is dry. Capillary Refill: Capillary refill takes 2 to 3 seconds. Neurological: Mental Status: He is alert. . Laboratory & Radiographic Imaging (if done): Results for orders placed or performed during the hospital encounter of 11/20/23 POC CBC and Differential Result Value Ref Range WBC 11.67 (H) 4.50 - 11.00 K/mcL RBC 4.86 4.50 - 5.90 M/mcL Hemoglobin 14.9 13.5 - 17.5 g/dL Hematocrit 42.9 41.0 - 53.0 % MCV 88.3 80.0 - 100.0 fL MCH 30.7 26.0 - 34.0 pg MCHC 34.7 31.0 - 37.0 g/dL RDW - CV 12.4 11.6 - 14.8 % Platelets 163 150 - 400 K/mcL MPV 10.2 9.4 - 12.4 fL Neutrophils 79.8 % Lymphocytes 6.3 % Monocytes 12.9 % Eosinophils 0.4 % Basophils 0.3 % IG Percent 0.30 % Neutrophils Abs 9.32 (H) 1.70 - 7.00 K/mcL Lymphocytes Abs 0.73 (L) 0.90 - 4.00 K/mcL Monocytes Abs 1.50 (H) 0.30 - 0.90 K/mcL Eosinophils Abs 0.05 0.00 - 0.50 K/mcL Basophils Abs 0.03 0.00 - 0.30 K/mcL IG Absolute 0.04 0.00 - 0.30 K/mcL Basic Metabolic Panel Result Value Ref Range Sodium 135 135 - 145 mmol/L Potassium 3.6 3.5 - 5.1 mmol/L Chloride 103 98 - 108 mmol/L Bicarbonate 21 21 - 32 mmol/L Anion Gap 15 10 - 20 mmol/L Glucose 122 (H) 65 - 99 mg/dL BUN 18 8 - 25 mg/dL Creatinine 1.16 0.80 - 1.30 mg/dL eGFR 68 >=60 mL/min/1.73 m2 BUN/Creatinine Ratio 15.5 10.0 - 20.0 Calcium 7.9 (L) 8.4 - 10.2 mg/dL POC Basic Metabolic Panel Result Value Ref Range Glucose BUN 18 8 - 25 mg/dL Creatinine GFR Sodium 139 135 - 145 mmol/L Potassium 3.7 3.5 - 5.1 mmol/L Chloride 104 98 - 108 mmol/L TCO2 22 21 - 32 mmol/L Ionized Calcium 4.7 4.5 - 5.3 mg/dL POC Basic Metabolic Panel Result Value Ref Range Glucose 138 (H) 65 - 99 mg/dL BUN 19 8 - 25 mg/dL Creatinine GFR Sodium 139 135 - 145 mmol/L Potassium 3.8 3.5 - 5.1 mmol/L Chloride 105 98 - 108 mmol/L TCO2 21 21 - 32 mmol/L Ionized Calcium 4.8 4.5 - 5.3 mg/dL POC Liver Panel Plus Result Value Ref Range Albumin 3.6 3.2 - 5.2 g/dL Alkal (more content not included)... Normal [facility] HEMOGLOBIN A1Con 11-20-2023 Glucose [Mass/Vol] 123 mg/dL High 74-114 [facility] Comment on above: Performed By: #### [id number] #### MH LAB [address], [place] [address] Fritz Egan M.D. [id number] HbA1c (Bld) [Mass fraction] 5.9 % High 4.2-5.6 [facility] Comment on above: Performed By: #### [id number] #### LAB [address], [place] [address] Fritz Egan M.D. [id number] HbA1c (Bld) [Mass fraction]o n 11-20-2023 Average glucose Estimated from glycated hemoglobin (Bld) [Mass/Vol] 123 mg/dL High 74 - 114 mg/dL [facility] Interpretation and review of laboratory results Abnormal [facility] Hemoglobin A1con 11-20-2023 HbA1c (Bld) [Mass fraction] 5.9 % High 4.2 - 5.6 % [facility] MAGNESIUM LEVELon 11-20-2023 Magnesium [Mass/Vol] 1.9 mg/dL Normal 1.6-2.4 [facility] Comment on above: Performed By: #### 4 [id number] #### LAB [address], [place] [address] Fritz Egan M.D. [id number] Magnesiumon 11-20-2023 Magnesium [Mass/Vol] 1.9 mg/dL 1.6 - 2 .4 mg/dL [facility] No Panel Informationon 11-19 Interpretation and review of laboratory results Normal [facility] POC [facility]OL[facility] Chloride [Moles/Vol] 105 mmol/L Normal 98-108 [facility] Comment on above: Order Comment: [facility] has implemented the eGFR calculation approach that does not have a coefficient for race that conforms to the NKF-ASN Task Force Recommendations. CO2 [Moles/Vol] 21 mmol/L Normal 21-32 [facility] Comment on above: Order Comment: [facility] has implemented the eGFR calculation approach that does not have a coefficient for race that conforms to the NKF-ASN Task Force Recommendations. Creatinine [Mass/Vol] 1.10 mg/dL Normal 0.80-1.30 [facility] Comment on above: Order Comment: [facility] has implemented the eGFR calculation approach that does not have a coefficient for race that conforms to the NKF-ASN Task Force Recommendations. Glucose [Mass/Vol] 129 mg/dL High 65-99 [facility] Comment on above: Order Comment: [facility] has implemented the eGFR calculation approach that does not have a coefficient for race that conforms to the NKF-ASN Task Force Recommendations. POC GFR 72 mL/min/1.73 m2 Normal >=60 [facility] Comment on above: Order Comment: [facility] has implemented the eGFR calculation approach that does not have a coefficient for race that conforms to the NKF-ASN Task Force Recommendations. Result Comment: Qi mated GFR was calculated using the 2020 CKD-EPI creatinine equation. POC IONIZED CALCIUM 4.5 mg/dL Normal 4.5-5.3 [facility] Comment on above: Order Comment: [facility] has implemented the eGFR calculation approach that does not have a coefficient for race that conforms to the NKF-ASN Task Force Recommendations. Potassium [Moles/Vol] 3.4 mmol/L Low 3.5-5.1 [facility] Comment on above: Order Comment: [facility] has implemented the eGFR calculation approach that does not have a coefficient for race that conforms to the NKF-ASN Task Force Recommendations. Sodium [Moles/Vol] 139 mmol/L Normal 135-145 [facility] Comment on above: Order Comment: [facility] has implemented the eGFR calculation approach that does not have a coefficient for race that conforms to the NKF-ASN Task Force Recommendations. Urea nitrogen [Mass/Vol] 19 mg/dL Normal 8-25 [facility] Comment on above: Order Comment: [facility] has implemented the eGFR calculation approach that does not have a coefficient for race that conforms to the NKF-ASN Task Force Recommendations. Chloride [Moles/Vol] 106 mmol/L Normal 98-108 [facility] Comment on above: Order Comment: [facility] has implemented the eGFR calculation approach that does not have a coefficient for race that conforms to the NKF-ASN Task Force Recommendations. CO2 [Moles/Vol] 21 mmol/L Normal 21-32 [facility] Comment on above: Order Comment: [facility] has implemented the eGFR calculation approach that does not have a coefficient for race that conforms to the NKF-ASN Task Force Recommendations. Glucose [Mass/Vol] 127 mg/dL High 65-99 [facility] Comment on above: Order Comment: [facility] has implemented the eGFR calculation approach that does not have a coefficient for race that conforms to the NKF-ASN Task Force Recommendations. POC CREATININE (EPOC) Normal [facility] Comment on above: Order Comment: [facility] has implemented the eGFR calculation approach that does not have a coefficient for race that conforms to the NKF-ASN Task Force Recommendations. Result Comment: Resu lt unable to be determined. POC GFR Normal [facility] Comment on above: Order Comment: [facility] has implemented the eGFR calculation approach that does not have a coefficient for race that conforms to the NKF-ASN Task Force Recommendations. Result Comment: Qi mated GFR was calculated using the 2020 CKD-EPI creatinine equation. POC IONIZED CALCIUM 4.6 mg/dL Normal 4.5-5.3 [facility] Comment on above: Order Comment: [facility] has implemented the eGFR calculation approach that does not have a coefficient for race that conforms to the NKF-ASN Task Force Recommendations. Potassium [Moles/Vol] 3.4 mmol/L Low 3.5-5.1 [facility] Comment on above: Order Comment: [facility] has implemented the eGFR calculation approach that does not have a coefficient for race that conforms to the NKF-ASN Task Force Recommendations. Sodium [Moles/Vol] 140 mmol/L Normal 135-145 [facility] Comment on above: Order Comment: [facility] has implemented the eGFR calculation approach that does not have a coefficient for race that conforms to the NKF-ASN Task Force Recommendations. Urea nitrogen [Mass/Vol] 18 mg/dL Normal 8-25 [facility] Comment on above: Order Comment: [facility] has implemented the eGFR calculation approach that does not have a coefficient for race that conforms to the NKF-ASN Task Force Recommendations. Chloride [Moles/Vol] 105 mmol/L Normal 98-108 [facility] Comment on above: Order Comment: [facility] has implemented the eGFR calculation approach that does not have a coefficient for race that conforms to the NKF-ASN Task Force Recommendations. CO2 [Moles/Vol] 21 mmol/L Normal 21-32 [facility] Comment on above: Order Comment: [facility] has implemented the eGFR calculation approach that does not have a coefficient for race that conforms to the NKF-ASN Task Force Recommendations. Glucose [Mass/Vol] 138 mg/dL High 65-99 [facility] Comment on above: Order Comment: [facility] has implemented the eGFR calculation approach that does not have a coefficient for race that conforms to the NKF-ASN Task Force Recommendations. POC CREATININE (EPOC) Normal [facility] Comment on above: Order Comment: [facility] has implemented the eGFR calculation approach that does not have a coefficient for race that conforms to the NKF-ASN Task Force Recommendations. Result Comment: Resu lt unable to be determined. POC GFR Normal [facility] Comment on above: Order Comment: [facility] has implemented the eGFR calculation approach that does not have a coefficient for race that conforms to the NKF-ASN Task Force Recommendations. Result Comment: Qi mated GFR was calculated using the 2020 CKD-EPI creatinine equation. POC IONIZED CALCIUM 4.8 mg/dL Normal 4.5-5.3 [facility] Comment on above: Order Comment: [facility] has implemented the eGFR calculation approach that does not have a coefficient for race that conforms to the NKF-ASN Task Force Recommendations. Potassium [Moles/Vol] 3.8 mmol/L Normal 3.5-5.1 [facility] Comment on above: Order Comment: [facility] has implemented the eGFR calculation approach that does not have a coefficient for race that conforms to the NKF-ASN Task Force Recommendations. Sodium [Moles/Vol] 139 mmol/L Normal 135-145 [facility] Comment on above: Order Comment: [facility] has implemented the eGFR calculation approach that does not have a coefficient for race that conforms to the NKF-ASN Task Force Recommendations. Urea nitrogen [Mass/Vol] 19 mg/dL Normal 8-25 [facility] Comment on above: Order Comment: [facility] has implemented the eGFR calculation approach that does not have a coefficient for race that conforms to the NKF-ASN Task Force Recommendations. Chloride [Moles/Vol] 104 mmol/L Normal 98-108 [facility] Comment on above: Order Comment: [facility] has implemented the eGFR calculation approach that does not have a coefficient for race that conforms to the NKF-ASN Task Force Recommendations. CO2 [Moles/Vol] 22 mmol/L Normal 21-32 [facility] Comment on above: Order Comment: [facility] Services has implemented the eGFR calculation approach that does not have a coefficient for race that conforms to the NKF-ASN Task Force Recommendations. POC CREATININE (EPOC) Normal [facility] Comment on above: Order Comment: [facility] Services has implemented the eGFR calculation approach that does not have a coefficient for race that conforms to the NKF-ASN Task Force Recommendations. Result Comment: Resu lt unable to be determined. POC GFR Normal [facility] Comment on above: Order Comment: [facility] has implemented the eGFR calculation approach that does not have a coefficient for race that conforms to the NKF-ASN Task Force Recommendations. Result Comment: Qi mated GFR was calculated using the 2020 CKD-EPI creatinine equation. POC GLUCOSE - EPOC [facility] Comment on above: Order Comment: [facility] has implemented the eGFR calculation approach that does not have a coefficient for race that conforms to the NKF-ASN Task Force Recommendations. Result Comment: Resu lt unable to be determined. POC IONIZED CALCIUM 4.7 mg/dL Normal 4.5-5.3 [facility] Comment on above: Order Comment: [facility] has implemented the eGFR calculation approach that does not have a coefficient for race that conforms to the NKF-ASN Task Force Recommendations. Potassium [Moles/Vol] 3.7 mmol/L Normal 3.5-5.1 [facility] Comment on above: Order Comment: [facility] has implemented the eGFR calculation approach that does not have a coefficient for race that conforms to the NKF-ASN Task Force Recommendations. Sodium [Moles/Vol] 139 mmol/L Normal 135-145 [facility] Comment on above: Order Comment: [facility] has implemented the eGFR calculation approach that does not have a coefficient for race that conforms to the NKF-ASN Task Force Recommendations. Urea nitrogen [Mass/Vol] 18 mg/dL Normal 8-25 [facility] Comment on above: Order Comment: [facility] has implemented the eGFR calculation approach that does not have a coefficient for race that conforms to the NKF-ASN Task Force Recommendations. POC CBC AND DIFFERENTIALon 0 11-20-2023 BASOPHILS ABSOLUTE COUNT 0.03 K/mcL Normal 0.00-0.30 [facility] Basophils/100 WBC (Bld) 0.3 % Normal [facility] Eosinophils (Bld) [#/Vol] 0.05 10*3/uL Normal 0.00-0.50 [facility] Eosinophils/100 WBC (Bld) 0.4 % Normal [facility] Erythrocyte distribution width (RBC) [Ratio] 12.4 % Normal 11.6-14.8 [facility] Hematocrit (Bld) [Volume fraction] 42.9 % Normal 41.0-53.0 [facility] Hemoglobin (Bld) [Mass/Vol] 14.9 g/dL Normal 13.5-17.5 [facility] IG ABSOLUTE 0.04 K/mcL Normal 0.00-0.30 [facility] IG PERCENT 0.30 % Normal [facility] Comment on above: Result Comment: The IG parameter is the percentage of metamyelocytes, myelocytes and promyelocytes. An immature granulocyte count (IG) of 1% or more suggests the possibility of infection, an IG count of 3% is very likely related to an infection. Lymphocytes (Bld) [#/Vol] 0.73 10*3/uL Low 0.90-4.00 [facility] Lymphocytes/100 WBC (Bld) 6.3 % Normal [facility] MCH (RBC) [Entitic mass] 30.7 pg Normal 26.0-34.0 [facility] MCV (RBC) [Entitic vol] 88.3 fL Normal 80.0-100.0 [facility] MEAN CORPUSCULAR HEMOGLOBIN CONC 34.7 g/dL Normal 31.0-37.0 [facility] Monocytes (Bld) [#/Vol] 1.50 10*3/uL High 0.30-0.90 [facility] Monocytes/100 WBC (Bld) 12.9 % Normal [facility] NEUTROPHILS ABSOLUTE COUNT 9.32 K/mcL High 1.70-7.00 [facility] Neutrophils/100 WBC (Bld) 79.8 % Normal [facility] Platelet mean volume (Bld) [Entitic vol] 10.2 fL Normal 9.4-12.4 [facility] Platelets (Bld) [#/Vol] 163 10*3/uL Normal 150-400 [facility] RBC (Bld) [#/Vol] 4.86 10*6/uL Normal 4.50-5.90 [facility] WBC (Bld) [#/Vol] 11.67 10*3/uL High 4.50-11.00 [facility] POC LIVER PANEL PLUS RALSon 11-20-2023 Albumin [Mass/Vol] 3.6 g/dL Normal 3.2-5.2 [facility] ALP [Catalytic activity/Vol] 66 U/L Normal 40-150 [facility] ALT [Catalytic activity/Vol] 27 U/L Normal 0-40 [facility] Amylase [Catalytic activity/Vol] 37 U/L Normal 25-115 [facility] Amylase [Catalytic activity/Vol] 18 U/L Normal 11-51 [facility] AST [Catalytic activity/Vol] 18 U/L Normal 0-45 [facility] Bilirubin [Mass/Vol] 1.7 mg/dL High 0.0-1.3 [facility] Protein [Mass/Vol] 6.9 g/dL Normal 6.0-8.0 [facility] RENAL FUNCTION PANELon 11-19 Albumin [Mass/Vol] 3.5 g/dL Normal 3.2-5.2 [facility] Comment on above: Order Comment: [facility] has implemented the eGFR calculation approach that does not have a coefficient for race that conforms to the NKF-ASN Task Force Recommendations. Performed By: #### 4 [id number] ####[facility] [address] [place], [place] [address] Fritz Egan M.D. [id number] Anion gap [Moles/Vol] 14 mmol/L Normal 10-20 [facility] Comment on above: Order Comment: [facility] has implemented the eGFR calculation approach that does not have a coefficient for race that conforms to the NKF-ASN Task Force Recommendations. Performed By: #### 4 6449 #### LAB [address] [place], [place] [address] Fritz Egan M.D. [id number] Calcium [Mass/Vol] 8.0 mg/dL Low 8.4-10.2 [facility] Comment on above: Order Comment: [facility] has implemented the eGFR calculation approach that does not have a coefficient for race that conforms to the NKF-ASN Task Force Recommendations. Performed By: #### 4 6449 #### LAB [address] [place], [place] [address] Fritz Egan M.D. [id number] Chloride [Moles/Vol] 107 mmol/L Normal 98-108 [facility] Comment on above: Order Comment: [facility] has implemented the eGFR calculation approach that does not have a coefficient for race that conforms to the NKF-ASN Task Force Recommendations. Performed By: #### 4 6449 #### LAB [address] [place] [address] Fritz Egan M.D. [id number] Creatinine [Mass/Vol] 0.99 mg/dL Normal 0.80-1.30 [facility] Comment on above: Order Comment: [facility] has implemented the eGFR calculation approach that does not have a coefficient for race that conforms to the NKF-ASN Task Force Recommendations. Performed By: #### 4 6449 #### LAB [address] [place] [address] Fritz Egan M.D. [id number] EGFR 82 mL/min/1.73 m2 Normal >=60 [facility] Comment on above: Order Comment: [facility] has implemented the eGFR calculation approach that does not have a coefficient for race that conforms to the NKF-ASN Task Force Recommendations. Result Comment: Qi mated GFR was calculated using the 2020 CKD-EPI creatinine equation. Performed By: #### 4 6449 #### LAB [address] [place] [address] Fritz Egan M.D. [id number] Glucose [Mass/Vol] 98 mg/dL Normal 65-99 [facility] Comment on above: Order Comment: [facility] has implemented the eGFR calculation approach that does not have a coefficient for race that conforms to the NKF-ASN Task Force Recommendations. Performed By: #### 4 6449 #### LAB [address] [place] [address] Fritz Egan M.D. [id number] HCO3 (Bld) [Moles/Vol] 22 mmol/L Normal 21-32 [facility] Comment on above: Order Comment: [facility] Services has implemented the eGFR calculation approach that does not have a coefficient for race that conforms to the NKF-ASN Task Force Recommendations. Performed By: #### 4 6449 #### LAB [address] [place] [address] Fritz Egan M.D. [id number] Phosphate [Mass/Vol] 2.3 mg/dL Normal 2.3-3.7 [facility] Comment on above: Order Comment: [facility] has implemented the eGFR calculation approach that does not have a coefficient for race that conforms to the NKF-ASN Task Force Recommendations. Performed By: #### 4 6449 #### LAB [address] [place] [address] Fritz Egan M.D. [id number] Potassium [Moles/Vol] 3.7 mmol/L Normal 3.5-5.1 [facility] Comment on above: Order Comment: [facility] has implemented the eGFR calculation approach that does not have a coefficient for race that conforms to the NKF-ASN Task Force Recommendations. Performed By: #### 4 6449 #### LAB [address] [place] [address] Fritz Egan M.D. [id number] Sodium [Moles/Vol] 139 mmol/L Normal 135-145 [facility] Comment on above: Order Comment: [facility] has implemented the eGFR calculation approach that does not have a coefficient for race that conforms to the NKF-ASN Task Force Recommendations. Performed By: #### 4 6449 #### LAB [address] [place] [address] Fritz Egan M.D. [id number] Urea nitrogen [Mass/Vol] 15 mg/dL Normal 8-25 [facility] Comment on above: Order Comment: [facility] has implemented the eGFR calculation approach that does not have a coefficient for race that conforms to the NKF-ASN Task Force Recommendations. Performed By: #### 4 6449 #### LAB [address] [place], [place] [address] Fritz Egan M.D. [id number] Urea nitrogen/Creatinine [Mass ratio] 15.2 mg/mg Normal 10.0-20.0 [facility] Comment on above: Order Comment: [facility] has implemented the eGFR calculation approach that does not have a coefficient for race that conforms to the NKF-ASN Task Force Recommendations. Performed By: #### 4 6449 #### LAB [address] [place], [place] [address] Fritz Egan M.D. [id number] Renal function 2000 panelon 11-20-2023 Albumin [Mass/Vol] 3.5 g/dL 3.2 - 5.2 g/dL [facility] Anion gap [Moles/Vol] 14 mmol/L 10 - 2 0 mmol/L [facility] Calcium [Mass/Vol] 8.0 mg/dL Low 8.4 - 10. 2 mg/dL [facility] Chloride [Moles/Vol] 107 mmol/L 98 - 10 8 mmol/L [facility] Creatinine [Mass/Vol] 0.99 mg/dL 0.80 - 1.30 mg/dL [facility] GFR/1.73 sq M.predicted CKD-EPI (S/P/Bld) [Vol rate/Area] 82 - PINF [facility] Comment on above: Estimated GFR was ca lculated using the 2020 CKD-EPI creatinine equation. Glucose [Mass/Vol] 98 mg/dL 65 - 99 mg/dL [facility] HCO3 [Moles/Vol] 22 mmol/L 21 - 32 mmol/L [facility] Interpretation and review of laboratory results Abnormal [facility] Phosphate [Mass/Vol] 2.3 mg/dL 2.3 - 3 .7 mg/dL [facility] Potassium [Moles/Vol] 3.7 mmol/L 3.5 - 5.1 mmol/L [facility] Sodium [Moles/Vol] 139 mmol/L 135 - 145 mmol/L [facility] Urea nitrogen [Mass/Vol] 15 mg/dL 8 - 25 mg/dL [facility] Urea nitrogen/Creatinine [Mass ratio] 15.2 mg/mg 10.0 - 20.0 [facility] has implemented the eGFR calculation approach that does not have a coefficient for race that conforms to the NKF-ASN Task Force Recommendations. [facility] TSHon 11-20-2023 TSH Qn 2.79 m[IU]/L Normal 0.27-4.20 [facility] Comment on above: Performed By: #### 4 6613 ####[facility] [address] [place], [place] [address] Fritz Egan M.D. [id number] TSH DL <= 0.005 mIU/L Qnon 0 11-20-2023 TSH Qn 2.79 m[IU]/L [facility] COVID-19, MOLECULARon 2022 SARS-CoV-2 (COVID-19) Ab IA Ql Detected Abnormal Not Detected [facility] Comment on above: Result Comment: Test ing was performed using the Rodriguez ID NOW COVID-19 assay on the ID NOW platform. This test has not been approved for use in asymptomatic patients and its performance in this patient population has not been evaluated. Negative results do not rule out the presence of SARS-CoV-2/COVID-19. EGD Reporton 10-16-2022 EGD Report [facility] Medical Records Department [address] [place] [address] EGD Report MR#: [id number] Acct: [id number] Name: AIDEN ESTRADA CHECO Rep #: [id number] : 1955 66 From: Colt Lewis DO PCP: Dr. Prashanth Mcintyre MD Status:[facility] Patient Name: Aiden Estrada Procedure Date: 10/16/2022 7:12 AM Date of : 1955 Age: 66 Procedure: Upper GI endoscopy Indications: Dysphagia Providers: Colt Lewis DO Medicines: Monitored Anesthesia Care Patient Profile: This is a 66 year old male. Refer to note in patient chart for documentation of history and physical. Patient has symptoms. Complications: No immediate complications. Procedure: Pre-Anesthesia Assessment: - Prior to the procedure, a History and Physical was performed, and patient medications and allergies were reviewed. The patient is competent. The risks and benefits of the procedure and the sedation options and risks were discussed with the patient. All questions were answered and informed consent was obtained. Patient identification and proposed procedure were verified by the physician in the pre-procedure area. Mental Status Examination: alert and oriented. Airway Examination: normal oropharyngeal airway and neck mobility. CV Examination: normal. Prophylactic Antibiotics: The patient does not require prophylactic antibiotics. Prior Anticoagulants: The patient has taken no previous anticoagulant or antiplatelet agents. After reviewing the risks and benefits, the patient was deemed in satisfactory condition to undergo the procedure. The anesthesia plan was to use monitored anesthesia care (MAC). Immediately prior to administration of medications, the patient was re-assessed for adequacy to receive sedatives. The heart rate, respiratory rate, oxygen saturations, blood pressure, adequacy of pulmonary ventilation, and response to care were monitored throughout the procedure. The physical status of the patient was re-assessed after the procedure. After obtaining informed consent, the endoscope was passed under direct vision. Throughout the procedure, the patient's blood pressure, pulse, and oxygen saturations were monitored continuously. The Endoscope was introduced through the mouth, and advanced to the second part of duodenum. The upper GI endoscopy was accomplished without difficulty. The patient tolerated the procedure well. Scope In: 7:24:13 AM Scope Out: 7:33:49 AM Total Procedure Duration Time 0 hours 9 minutes 36 seconds Findings: A non-bleeding diverticulum with a small opening and no stigmata of recent bleeding was found at the cricopharyngeus. One benign-appearing, intrinsic stenosis was found 20 to 21 cm from the incisors. This stenosis was moderately severe and. The stenosis was traversed. LA Grade B (one or more mucosal breaks greater than 5 mm, not extending between the tops of two mucosal folds) esophagitis with no bleeding was found 36 to 39 cm from the incisors. Biopsies were taken with a cold forceps for histology. Verification of patient identification for the specimen was done. Estimated blood loss was minimal. Patchy moderate inflammation characterized by erosions, erythema, friability and aphthous ulcerations was found in the gastric body, on the lesser curvature of the stomach and in the gastric antrum. Biopsies were taken with a cold forceps for histology. Verification of patient identification for the specimen was done. Estimated blood loss was minimal. Patchy moderate inflammation characterized by erosions and erythema was found in the duodenal bulb. Biopsies were taken with a cold forceps for histology. Verification of patient identification for the specimen was done. Estimated blood loss was minimal. 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 - Benign-appearing esophageal stenosis. - LA Grade B reflux esophagitis. Biopsied. - Chronic gastritis. Biopsied. - Duodenitis. Biopsied. Recommendation: - Discharge patient to home. - Resume previous diet. - Continue present medications. - Await pathology results. Procedure Code(s): --- Professional --- 29194, Esophagogastroduodenosco py, flexible, transoral; with biopsy, single or multiple CPT copyright 2017 [employer]. All rights reserved. The codes documented in this report are preliminary and upon capture manager review may be revised to meet current compliance requirements. Colt Lewis DO 10/16/2022 7:44:18 AM This report has been signed electronically. Number of Addenda: 0 Note Initiated On: 10/16/2022 7:12 AM 10/16/22 0744 Date Colt Lewis DO Cosigner Signature: Date (if indicated) CC: Dr. Prashanth Mcintyre MD; Colt Lewis DO Date Dic (more content not included)... Normal [facility] H Pylori (initial)on 023 H Pylori (initial) ---- Patient Age/Sex Location Account Attending Physician AIDEN ESTRADA 66/M EN [id number] Colt Lewis DO Specimen: [id number] Received: 10/16/22-5071 Status: MIKE Hernándezaracelis Num: [id number] Spec Type: IMMUNO Subm Dr: Colt Lewis DO PHYSICIAN INSTITUTION [place] [address] SPECIMEN INFORMATION: Tissue Source: B ??? Gastric antrum Clinical Info: Dysphagia Specimen Number: [id number] CPT code: 11566 METHODOLOGY: Deparaffinized sections of prefer/formalin-fixed tissue or PAP/DQ stained slides are incubated with monoclonal/polyclonal antibodies/oligonucleoti de probes. Localization is made via biotin free immunoperoxidase method. Appropriate controls are performed and reacted as expected. Results on target cell population are indicated in the following table: RESULTS: ANTIBODY / CLONE RESULT Block B H Pylori (polyclonal) negative These tests were developed and their performance characteristics determined by [facility]. They may not have been cleared or approved by the U.S. Food and Drug Administration. The FDA has determined that such clearance or approval is not necessary. The above immunohistochemical/dual JENNIFER markers are ordered and reviewed by the Pathologist. INTERPRETATION: B. Gastric antrum, biopsy: Negative for Helicobacter pylori organisms. AM:annemarie 10/17/2022 Signed (signature on file) Dr. Alexys Garcia DO 10/17/22 1331 Normal [facility] Comment on above: Performed By: #### P H.PYLORI #### [facility] [address] [place], [place], [id number] Special Stain Group IIon Special Stain Group II Patient Age/Sex Location Account Attending Physician AIDEN ESTRADA 66/M EN [id number] Colt Lewis DO Specimen: Received: 10/16/22 Status: MIKE Farley Num: [id number] Spec Type: EGD BIOPSY Meenakshi Dr: DO RAY Holman OPERATION: EGD with biopsy and dilation (MAC) PRE-OP DIAGNOSIS: Dysphagia TISSUE SUBMITTED: A ??? Lesser curvature biopsy, B ??? Gastric antrum for H. pylori and path, C ??? Duodenum biopsy, D ??? Distal esophagus biopsy MICROSCOPIC DIAGNOSIS A. Lesser curvature of stomach, biopsy: Chronic active gastritis. B. Gastric antrum, biopsy: Chronic gastritis. See comment. C. Duodenum, biopsy: No pathologic change. D. Distal esophagus, biopsy: Gastroesophageal junctional mucosa with chronic inflammation. Focal changes of reflux. No evidence of goblet cell metaplasia. See comment. AM:annemarie 10/17/2022 COMMENT B. The results of immunohistochemistry for Helicobacter pylori will be reported separately ([id number]). D. Alcian blue/PAS stain with matched control supports the above diagnosis. MICROSCOPIC DESCRIPTION Slides are reviewed. GROSS DESCRIPTION A - Received in fixative is one container labeled with the patient's name and designated lesser curvature of stomach. The specimen consists of two irregular fragments of light haque soft tissue that in aggregate measure 0.8 x 0.3 x 0.1 cm. The specimen is totally submitted in one cassette. B - Received in fixative is one container labeled with the patient's name and designated gastric antrum. The specimen consists of two irregular fragments of light haque soft tissue that in aggregate measure 0.6 x 0.6 x 0.1 cm. The specimen is totally submitted in one cassette. C - Received in fixative is one container labeled with the patient's name and designated duodenum biopsy. The specimen consists of one irregular fragment of light haque soft tissue Patient Age/Sex Location Account Attending Physician AIDEN ESTRADA/M EN [id number] Colt Lewis DO that measures 0.6 x 0.5 x 0.1 cm. The specimen is totally submitted in one cassette. D - Received in fixative is one container labeled with the patient's name and designated distal esophagus. The specimen consists of multiple irregular fragments of light haque soft tissue that in aggregate measure 0.7 x 0.5 x 0.1 cm. The specimen is totally submitted in one cassette. / AM:annemarie 10/16/2022 TC:3 [facility]: [id number] x4, [address] Patient Age/Sex Location Account Attending Physician AIDEN ESTRADA CHECO 66/M EN [id number] Colt Lewis DO Signed (signature on file) Dr. Alexys Garcia, 10/17/22 1329 Normal [facility] Comment on above: Performed By: #### P SSII #### [facility] [address] [place], [place], [address] Gastroenterology Visit Repor ton 07-29-2022 Gastroenterology Visit Report [facility] [address] [place] [address] OFFICE VISIT Date of Service: 07/29/22 MR#: [id number] Acct: [id number] Name: AIDEN ESTRADA Rep #: [id number] : 1955 Provider: ANDRES Martinez Age/Sex: 66/M Location: [facility] Status: Signed Intake Vital Signs 07/29/22 13:38 Height 5 ft 11 in Weight: 190 lb BMI 26.4 Intake Visit Reasons: Dysphagia Chief Complaint: food sticking Allergies No Known Allergies Allergy (Unverified 07/29/22 13:39) Medications atorvastatin 20 mg tablet 20 mg PO DAILY 05/19/22 [History Confirmed 05/19/22] doxazosin 1 mg tablet 1 mg PO DAILY 05/19/22 [History Confirmed 05/19/22] lisinopril 5 mg tablet 5 mg PO DAILY 05/19/22 [History Confirmed 05/19/22] lutein 20 mg capsule 20 mg PO DAILY 05/19/22 [History Confirmed 05/19/22] multivitamin 1 tab PO DAILY 05/19/22 [History Confirmed 05/19/22] omega-3 fatty acids 1,000 mg capsule 1,000 mg PO DAILY 05/19/22 [History Confirmed 05/19/22] propranolol 10 mg tablet 10 mg PO BID 05/19/22 [History Confirmed 05/19/22] [facility] Medical History Calculus of kidney Esophageal dysphagia Essential tremor Frequent headaches HLD (hyperlipidemia) HTN (hypertension) Tubular adenoma of colon Surgical History H/O bilateral cataract extraction Hx of tonsillectomy Family History Mother Hypertension Father Hypertension Prostate cancer Brother Hypertension Diabetes CAD (coronary artery disease) Afib Uterine fibroid Social History Smoking Status: Former smoker alcohol intake: never substance use type: does not use caffeine: No HPI HPI Chief Complaint: food sticking Details: AIDEN ESTRADA, is a 66 M who presents to the office today to establish with gastroenterology for dysphagia began over a year ago. Food will stick in the mid to distal esophagus sometimes, he has to sit up straight and follow the food with lots of water. The food has always passed, no emergency visits for food bolus. Chicken and pasta are the primary culprits. He has never regurgitated to get this to pass. He never has nausea or vomiting. He never has heartburn or acid reflux. No pain other than discomfort when the food is stuck. No cough. No sense of esophageal spasms. No abdominal pain. No early satiety. Normal appetite. No weight loss. He has never been on medication for this dysphagia. He had a normal esophagram in April 2021. He has never had an EGD. No bowel complaints. He denies diarrhea, constipation, melena, hematochezia. Colonoscopy 01/2020, told to repeat in 5 years Past medical history hypertension, tubular adenoma of colon, remote history of kidney stones, essential tremor Past surgical history cataracts, tonsillectomy ROS Const Constitutional: No fatigue, fever(s), frequent falls, headache(s) or weight change ENT ENT: No headache(s) or difficulty swallowing Cardio Cardiology: No leg pain with exertion Gastro GI: No abdominal pain, bloating, change in bowel habits, constipation, diarrhea, heartburn, difficulty swallowing, Vomiting blood/hematemesis, Blood in stool, nausea/dyspepsia or vomiting Musc Musculoskeletal: No abnormal gait, joint pain, back pain, joint swelling, muscle cramps, muscle weakness, numbness, stiffness, tingling, Arthritis, sciatica, leg pain at night or leg pain with exertion Skin Skin: No dry skin, lesions, itchy eyes or rash Neuro Neurology: No abnormal gait, dizziness, frequent falls, headache(s), numbness, tingling, tremor(s), Increased tone in limbs, paralysis or seizures Psych Psychiatric: No anxiety, No depression, No paranoia, No Behavioral Problems, No Compulsive Behavior, No hyperactivity, No inattentiveness, No obsessions/compulsions, No Temper Tantrums and No suicidal ideation Endo Endocrine: No fatigue or weight change Aller/Imm Allergy/Immunologic: No itchy eyes Jonatan/Lymp Hematologic/Lymphatic: No easy bleeding or easy bruising Exam Const General: cooperative, healthy appearing and comfortable Nutritional Appearance: average body habitus Orientation: alert, awake and oriented x3 HENMT Head: normal to inspection Eyes Sclera: sclerae normal Neck Neck: normal visual inspection Chest Chest palpation inspection: normal inspection of the chest Resp Effort Inspection: normal respiratory effort GI Inspection: normal to inspection Neuro Speech: other (there is a tremor to his voice) Quality Reporting Tobacco Screening ([facility] 138) Smoking Status: Former smoker Assessment and Plan Assessment and Plan (1) Dysphagia: Plan: 66-year-old m (more content not included)... Normal [facility] Vital Signs Date Time Vital Sign Value Performing Clinician Fredyi rell 02-21-2025 08:27-0400 Diastolic blood pressure 72 mm[Hg] Emmy De Leon MD Work Phone: 02-21-2025 08:27-0400 Heart rate 55 /min Emmy De Leon MD Work Phone: 02-21-2025 08:27-0400 Respiratory rate 16 /min Emmy De Leon MD Work Phone: 02-21-2025 08:27-0400 SaO2% (BldA) [Mass fraction] 98 % Emmy De Leon MD Work Phone: 02-21-2025 08:27-0400 Systolic blood pressure 104 mm[Hg] Emmy De Leon MD Work Phone: 02-21-2025 07:20-0400 Body mass index (BMI) [Ratio] 27.21 kg/m2 Emmy De Leon MD Work Phone: 02-21-2025 07:20-0400 Body temperature 97.81 [degF] Emmy De Leon MD Work Phone: 02-21-2025 07:20-0400 Body weight 84.8 kg Emmy De Leon MD Work Phone: 12-13-2024 10:00-0400 Body mass index (BMI) [Ratio] 27.21 kg/m2 Prashanth Mcintyre MD Work Phone: 12-13-2024 10:00-0400 Body weight 84.8 kg Prashanth Mcintyre MD Work Phone: 12-13-2024 10:00-0400 Diastolic blood pressure 78 mm[Hg] Prashanth Mcintyre MD Work Phone: 12-13-2024 10:00-0400 Heart rate 56 /min Prashanth Mcintyre MD Work Phone: 12-13-2024 10:00-0400 Respiratory rate 16 /min Prashanth Mcintyre MD Work Phone: 12-13-2024 10:00-0400 SaO2% (BldA) [Mass fraction] 98 % Prashanth Mcintyre MD Work Phone: 12-13-2024 10:00-0400 Systolic blood pressure 130 mm[Hg] Prashanth Mcintyre MD Work Phone: 05-24-2024 10:18-0500 Diastolic blood pressure 80 mm[Hg] Anna Kenny [employer]TRUSION SUPERVISOR[employer] Work Phone: 05-24-2024 10:18-0500 Systolic blood pressure 124 mm[Hg] Anna Kenny EXTRUSION SUPERVISOR.[employer] Work Phone: 05-24-2024 09:59-0500 Body height 176.5 cm Anna Cruz EXTRUSION SUPERVISOR.[employer] Work Phone: 05-24-2024 09:59-0500 Body mass index (BMI) [Ratio] 27.12 kg/m2 Anna BacaKenny EXTRUSION SUPERVISOR.[employer] Work Phone: 05-24-2024 09:59-0500 Body weight 84.5 kg Anna Cruz EXTRUSION SUPERVISOR.[employer] Work Phone: 05-24-2024 09:59-0500 Heart rate 62 /min Anna Cruz EXTRUSION SUPERVISOR.[employer] Work Phone: 05-24-2024 09:59-0500 SaO2% (BldA) [Mass fraction] 98 % Anna BacaKenny EXTRUSION SUPERVISOR.[employer] Work Phone: 12-07-2023 14:14-0400 Body mass index (BMI) [Ratio] 26.54 kg/m2 Prashanth Mcintyre MD Work Phone: 12-07-2023 14:14-0400 Body temperature 98.2 [degF] Prashanth Mcintyre MD Work Phone: 12-07-2023 14:14-0400 Body weight 83.92 kg Prashanth Mcintyre MD Work Phone: 12-07-2023 14:14-0400 Diastolic blood pressure 72 mm[Hg] Prashanth Mcintyre MD Work Phone: 12-07-2023 14:14-0400 Heart rate 72 /min Prashanth Mcintyre MD Work Phone: 12-07-2023 14:14-0400 Respiratory rate 16 /min Prashanth Mcintyre MD Work Phone: 12-07-2023 14:14-0400 Systolic blood pressure 122 mm[Hg] Prashanth Mcintyre MD Work Phone: 11-22-2023 08:28-0400 Respiratory rate 18 /min Wilfredo Harding MD Work Phone: [facility] 11-22-2023 08:14-0400 Body temperature 97.39 [degF] Wilfredo Harding MD Work Phone: [facility] 11-22-2023 08:14-0400 Diastolic blood pressure 83 mm[Hg] Wilfredo Harding MD Work Phone: [facility] 11-22-2023 08:14-0400 Heart rate 62 /min Wilfredo Harding MD Work Phone: [facility] 11-22-2023 08:14-0400 SaO2% (BldA) [Mass fraction] 97 % Wilfredo Harding MD Work Phone: [facility] 11-22-2023 08:14-0400 Systolic blood pressure 142 mm[Hg] Wilfredo Harding MD Work Phone: [facility] 11-20-2023 18:22-0400 Body height 180.3 cm Wilfredo Harding MD Work Phone: [facility] 11-20-2023 18:22-0400 Body mass index (BMI) [Ratio] 25.8 kg/m2 Wilfredo Harding MD Work Phone: [facility] 11-20-2023 18:22-0400 Body weight 83.9 kg Wilfredo Harding MD Work Phone: [facility] 05-22-2023 08:46-0500 Body height 177.8 cm Anna Kenny EXTRUSION SUPERVISOR[employer] Work Phone: 05-22-2023 08:46-0500 Body weight 83.46 kg Anna Kenny EXTRUSION SUPERVISOR[employer] Work Phone: 05-22-2023 08:46-0500 Diastolic blood pressure 78 mm[Hg] Anna Kenny EXTRUSION SUPERVISOR[employer] Work Phone: 05-22-2023 08:46-0500 Heart rate 60 /min Anna Kenny EXTRUSION SUPERVISOR[employer] Work Phone: 05-22-2023 08:46-0500 Respiratory rate 14 /min Anna Kenny EXTRUSION SUPERVISOR[employer] Work Phone: 05-22-2023 08:46-0500 SaO2% (BldA) [Mass fraction] 100 % Anna Kenny EXTRUSION SUPERVISOR[employer] Work Phone: 05-22-2023 08:46-0500 Systolic blood pressure 124 mm[Hg] Anna Kenny EXTRUSION SUPERVISOR[employer] Work Phone: 11-18-2022 11:43-0400 Body weight 85.73 kg Prashanth Mcintyre MD Work Phone: 11-18-2022 11:43-0400 Diastolic blood pressure 74 mm[Hg] Prashanth Mcintyre MD Work Phone: 11-18-2022 11:43-0400 Respiratory rate 56 /min Prashanth Mcintyre MD Work Phone: 11-18-2022 11:43-0400 Systolic blood pressure 116 mm[Hg] Prashanth Mcintyre MD Work Phone: 10-16-2022 07:55-0400 Body temperature 97 [degF] Dr. Prashanth Mcintyre Work Phone: 0(221)[phone] [place] [address] 10-16-2022 07:55-0400 Diastolic blood pressure 91 mm[Hg] Dr. Prashanth Mcintyre Work Phone: [facility] 10-16-2022 07:55-0400 Heart rate 67 /min Dr. Prashanth Mcintyre Work Phone: 6(376)104-550148 [place] [address] 10-16-2022 07:55-0400 Respiratory rate 16 /min Dr. Prashanth Mcintyre Work Phone: 3(612)294-620948 [place] [address] 10-16-2022 07:55-0400 SaO2% (BldA) [Mass fraction] 94 % Dr. Prashanth Mcintyre Work Phone: 9([phone])[phone] [place] [address] 10-16-2022 07:55-0400 Systolic blood pressure 141 mm[Hg] Dr. Prashanth Mcintyre Work Phone: 7(544)[phone] [place] [address] 10-16-2022 06:38-0400 Body height 177.[address] Prashanth Mcintyre Work Phone: 4(684)415-706348 [place] [address] 10-16-2022 06:38-0400 Body mass index (BMI) [Ratio] 28.1 kg/m2 Dr. Prashanth Mcintyre Work Phone: 9(873)004-293748 [place] [address] 10-16-2022 06:38-0400 Body weight 88.[address] Prashanth Mcintyre Work Phone: 4(302)[phone] [place] [address] 07-29-2022 13:38-0500 Body mass index (BMI) [Ratio] 26.4 kg/m2 Dr. Prashanth Mcintyre Work Phone: 6(215)[phone] [place] [address] 07-29-2022 13:38-0500 Body weight 86.[address] Prashanth Mcintyre Work Phone: 9(134)[phone] [place] [address] Encounters Encounter Date Encounter Type Care Provider Facility Start: 03-27-2025 End: 03-27-2025 ambulatory PRASHANTH MCINTYRE Facility:[facility] Start: 02-28-2025 End: 02-28-2025 Patient encounter procedure Shabana Jimenez [place] Work Phone: General Surgery Comment on above: Tubular adenoma of c olon (Primary Dx); Hyperplastic colonic polyp, unspecified part of colon Start: 02-28-2025 End: 02-28-2025 ambulatory PRASHANTH MCINTYRE Facility:[facility] Start: 02-21-2025 ambulatory PRASHANTH MCINTYRE Faci lity:[facility] Start: 02-21-2025 End: 02-21-2025 Subsequent hospital visit by physician Emmy De Leon MD Work Phone: Ambulatory Surgery Comment on above: Special screening fo r malignant neoplasms, colon [Z12.11] Start: 02-02-2025 End: 02-02-2025 ambulatory Nurse Card Ag Richards Work Phone: Cardiology Comment on above: Stress Test Instruct ions for 02/06/25 Start: 02-02-2025 End: 02-02-2025 E-mail encounter from caregiver Nurse Card Ag Richards Work Phone: Cardiology Start: 12-19-2024 End: 12-20-2024 Follow-up encounter Prashanth Mcintyre MD Work Phone: Internal [facility] Start: 12-13-2024 End: 12-13-2024 ambulatory PRASHANTH MCINTYRE Facility:[facility] Start: 12-13-2024 End: 12-13-2024 Office outpatient visit 25 minutes Prashanth Mcintyre MD Work Phone: Internal Medicine [facility] Comment on above: REEDER (dyspnea on exer tion) (Primary Dx); Mixed hyperlipidemia; Essential hypertension; Gastroesophageal reflux disease with esophagitis without hemorrhage; Essential tremor; Special screening for malignant neoplasms, colon Start: 12-13-2024 End: 12-13-2024 ambulatory PRASHANTH MCINTYRE Facility:[facility] Start: 05-24-2024 End: 05-24-2024 ambulatory ANNA CRUZ Facility:[facility] Start: 05-24-2024 End: 05-24-2024 Patient encounter procedure Anna Cruz APRN.CNP Work Phone: Internal Medicine [facility] Comment on above: Medicare annual well ness visit, subsequent (Primary Dx); Essential hypertension; Gastroesophageal reflux disease with esophagitis without hemorrhage; Mixed hyperlipidemia; Impaired fasting glucose; BPH with obstruction/lower urinary tract symptoms; Essential tremor; Screening for depression; Encounter for screening examination for other mental health and behavioral disorders; Encounter for immunization Start: 05-20-2024 End: 05-20-2024 ambulatory PRASHANTH MCINTYRE Facility:[facility] Start: 12-07-2023 End: 12-07-2023 Patient encounter procedure Prashanth Mcintyre MD Work Phone: Internal Medicine [facility] Comment on above: Colitis (Primary Dx) ; Mixed hyperlipidemia; Essential hypertension; Gastroesophageal reflux disease with esophagitis without hemorrhage; Esophageal dysphagia; Essential tremor Start: 11-20-2023 End: 11-22-2023 ambulatory [facility] Start: 11-20-2023 End: 11-22-2023 Evaluation and management of inpatient Aguila Norma Barron MD Work Phone: [facility] Medical Observation Start: 11-20-2023 End: 11-20-2023 Emergency department patient visit [facility] Start: 08-12-2023 ambulatory Nelli Workman [facility] Comment on above: Population Health vigation Outreach ([facility]) Start: 05-25-2023 Telephone encounter Anna flores APRN.[employer] Work Phone: Internal Medicine [facility] Comment on above: Results Start: 05-22-2023 End: 05-22-2023 Patient encounter procedure Anna Cruz APRN.[employer] Work Phone: Internal Medicine [facility] Comment on above: Medicare annual well ness visit, subsequent (Primary Dx); Encounter for immunization; Screening for prostate cancer; Encounter for screening for diabetes mellitus Start: 04-02-2023 End: 04-02-2023 Emergency department patient visit [facility] Start: 11-18-2022 End: 11-18-2022 Patient encounter procedure Prashanth Mcintyre MD Work Phone: Internal Medicine [facility] Comment on above: Essential hypertensi on (Primary Dx); Mixed hyperlipidemia; Impacted cerumen, left ear; Hearing loss, unspecified hearing loss type, unspecified laterality; Gastroesophageal reflux disease with esophagitis without hemorrhage; Esophageal dysphagia Start: 10-29-2022 ambulatory Prashanth Torresi ty:[facility] Start: 10-16-2022 ambulatory [facility] Facility :[facility] Start: 10-16-2022 End: 10-16-2022 ambulatory [facility] Facility:[facility] Start: 10-16-2022 Non-patient / Non-visit Dr. Prashanth Mcintyre Work Phone: [facility] Start: 10-16-2022 End: 10-16-2022 Admission to same day surgery center Dr. Prashanth Mcintyre Work Phone: [facility] Start: 10-16-2022 End: 10-16-[address] Prashanth Mcintyre Work Phone: [facility] Work Phone: Start: 10-13-2022 Refill Prashanth real MD Work Phone: [facility] Comment on above: Refill Request Start: 07-29-2022 End: 07-29-2022 ambulatory Ivania Martinez NP Facility:[facility] Start: 07-29-2022 End: 07-29-[address] Prashanth Mcintyre Work Phone: [facility] Gastroenterology Start: 05-22-2022 Telephone encounter Prashanth horvath MD Work Phone: [facility] Comment on above: Medication Update Start: 01-10-2022 Refill Prashanth real MD Work Phone: [facility] Comment on above: Refill Request Procedures Date Procedure Procedure Detail Performing Clinician Start: 02-21-2025 Colonoscopy flx dx w/collj spec when pfrmd Prashanth Mcintyre MD Work Phone: Start: 02-21-2025 Colonoscopy Emmy D eLeon MD Work Phone: Start: 12-13-2024 Ecg routine ecg w/least 12 lds i&r only [facility] Provider Start: 05-24-2024 Adult depression screening assessment Anna Kenny EXTRUSION SUPERVISOR.[employer] Work Phone: Start: 05-20-2024 Lipid 1996 panel - Serum or Plasma Anna H ershberger EXTRUSION SUPERVISOR.[employer] Work Phone: Start: 11-22-2023 Renal function panel Liliane Leon PA-C Work Phone: Start: 11-21-2023 Urnls dip stick/tablet reagent auto microscopy Aguila Barron MD Work Phone: Start: 11-21-2023 Renal function panel Aguila Barron MD Work Phone: Start: 11-20-2023 Renal function panel Aguila Barron MD Work Phone: Start: 05-22-2023 INFLUENZA VACCINE, PRSV FREE, AGE 65+ YR, HIGH DOSE, QUADRIVALENT (FLUZONE HIGH-DOSE) Anna Kenny EXTRUSION SUPERVISOR.[employer] Work Phone: Start: 05-22-2023 Lipid 1996 panel - Serum or Plasma Anna H ershberger EXTRUSION SUPERVISOR.[employer] Work Phone: Start: 10-16-[address] Prashanth waters Work Phone: Start: 05-12-2022 Lipid 1996 panel - Serum or Plasma Anna H ershberger EXTRUSION SUPERVISOR[employer] Work Phone: Start: 01-31-2021 Adult depression screening assessment Prashanth Mcintyre MD Work Phone: Start: 02-10-2020 Colonoscopy Prashnath Mcintyre MD Work Phone: Plan of Treatment Date Care Activity Detail Author Start: 02-21-2030 Screening for malign ant neoplasm of colon Start: 05-20-2029 Lipid panel Lipid Screening [facility] Start: 2028 RSV Vaccine (1 - 1-d ose 75+ series) RSV Vaccine (1 - 1-dose 75+ series) Start: 05-22-2028 Lipid 1996 panel - Serum or Plasma Lipid Screening Start: 05-22-2028 Lipid panel Lipid Screening [facility] Start: 12-14-2027 Diabetes Screening Diabetes Screenin g Start: 05-20-2027 Diabetes Screening Diabetes Screenin g Start: 05-12-2027 Lipid 1996 panel - Serum or Plasma Lipid Screening Start: 05-12-2027 LIPID SCREEN LIPID SCREEN Start: 11-19-2026 Diabetes Screening Diabetes Screenin g Start: 05-22-2026 Diabetes Screening Diabetes Screenin g Start: 04-02-2026 PROSTATE CANCER SCREENING DISCUSSION PROSTATE CANCER SCREENING DISCUSSION Start: 01-28-2026 LIPID SCREEN LIPID SCREEN Start: 12-13-2025 Annual PCP Team Ceo [facility] Disease Visit Annual PCP Team Chronic Disease Visit Start: 12-13-2025 End: 12-13-2025 Patient encounter procedure 12/13/2025 9:40 AM EDT Office Visit [facility] [address] [place] [address] Prashanth Mcintyre MD [address] [place] [address] 6 month follow-up [facility] Comment on above: 6 month follow-up Start: 06-06-2025 End: 06-06-2025 Patient encounter procedure 06/06/2025 9:20 AM EST Office Visit Internal Medicine [facility] [address] [place] [address] Anna Cruz, EXTRUSION SUPERVISOR.[employer] [address] [place] [address] Annual Medicare Wellness w/5 month follow-up [facility] Comment on above: Annual Medicare Well ness w/5 month follow-up Start: 05-24-2025 Annual PCP Team Ceo Ziff Davis fer Disease Visit Annual PCP Team Chronic Disease Visit Start: 05-24-2025 Anxiety Screening Anxiety Screening Start: 05-24-2025 BP Controlled (<130/80) BP Controlle d (<130/80) Start: 05-24-2025 Covid-19 Vaccine () Covid-19 Vaccine () Comment on above: Postponed from 02/13 (Declined at this time) Start: 05-24-2025 Depression Screening Depression Scre ening Start: 05-24-2025 Urine microalbumin profile DTaP,Tdap,Td Vaccine (1 - Tdap) Comment on above: Postponed from 01/09 (Declined at this time) Start: 05-15-2025 End: 08-14-2025 Comprehensive metabolic 2000 panel - Serum or Plasma COMPREHENSIVE METABOLIC PANEL Lab Routine Mixed hyperlipidemia Expected: 05/15/2025, Expires: 08/14/2025 Comment on above: Expected: 05/15/2025 , Expires: 08/14/2025 Start: 05-15-2025 End: 08-14-2025 Lipid 1996 panel - Serum or Plasma LIPID PANEL, FASTING Lab Routine Mixed hyperlipidemia Expected: 05/15/2025, Expires: 08/14/2025 Comment on above: Expected: 05/15/2025 , Expires: 08/14/2025 Start: 05-12-2025 DIABETES SCREEN DIABETES SCREEN [facility] Start: 05-12-2025 Diabetes Screening Diabetes Screenin g Start: 03-27-2025 End: 03-27-2025 Patient encounter procedure 03/27/2025 11:20 AM EDT Office Visit Cardiology [address] [place] [address] REEDER (dyspnea on exertion) [R06.09] Cardiology Comment on above: REEDER (dyspnea on exer tion) [R06.09] Start: 02-28-2025 End: 02-28-2025 Patient encounter procedure 02/28/2025 9:00 AM EDT Office Visit General Surgery [address] [place], [place] [id number] Shabana Jimenez APRN.[employer] [address] [place] [address] 02-21 colonoscopy follow up General Surgery Comment on above: 02-21 colonoscopy fo llow up Start: 02-21-2025 End: 02-21-2025 Patient encounter procedure 02/21/2025 7:30 AM EDT Appointment Ambulatory Surgery [address] [place], [place] [phone] Emmy De Leon MD [address] [place] [address] Special screening for malignant neoplasms, colon [Z12.11] Ambulatory Surgery Comment on above: Special screening fo r malignant neoplasms, colon [Z12.11] Start: 02-13-2025 Influenza vaccination Influenza Vacc ine (#1) Start: 02-09-2025 Colonoscopy COLONOSCOPY Start: 02-09-2025 COLORECTAL CANCER SCREENING COLORECTAL CANCER SCREENING Start: 02-09-2025 Screening for malign ant neoplasm of colon Start: 02-06-2025 End: 02-06-2025 Patient encounter procedure 02/06/2025 11:20 AM EDT Office Visit Cardiology [address] [place] [id number] REEDER (dyspnea on exertion) [R06.09] Cardiology Comment on above: REEDER (dyspnea on exer tion) [R06.09] Start: 01-31-2025 End: 01-31-2025 Patient encounter procedure 01/31/2025 7:30 AM EDT Appointment Ambulatory Surgery [address] [place], [place] [id number] Emmy De Leon MD [address] [place] [id number] Special screening for malignant neoplasms, colon [Z12.11] Ambulatory Surgery Comment on above: Special screening fo r malignant neoplasms, colon [Z12.11] Start: 01-30-2025 End: 01-30-2025 Patient encounter procedure 01/30/2025 1:50 PM EDT Office Visit Cardiology [address] [place] [address] REEDER (dyspnea on exertion) [R06.09] Cardiology Comment on above: REEDER (dyspnea on exer tion) [R06.09] Start: 12-13-2024 End: 03-14-2025 Basic metabolic 2000 panel - Serum or Plasma Comment on above: Expected: 12/13/2024 , Expires: 03/14/2025 Start: 12-06-2024 Annual PCP Team Ceo Ziff Davis fer Disease Visit Annual PCP Team Chronic Disease Visit Start: 12-06-2024 BP Controlled (<130/80) BP Controlle d (<130/80) Start: 12-06-2024 End: 12-06-2024 Patient encounter procedure 12/06/2024 10:00 AM EDT Office Visit Internal Medicine [facility] [address] [facility] [place] [address] Prashanth Mcintyre MD [address] [place] [address] 1 year follow up [facility] Medicine [facility] Comment on above: 1 year follow up Start: 06-15-2024 Advance Directive Discussion Advance Directive Discussion Start: 06-15-2024 Medicare Advantage Annual Wellness Visit Medicare Advantage Annual Wellness Visit Start: 05-24-2024 End: 05-24-2024 Patient encounter procedure 05/24/2024 10:00 AM EST Office Visit Internal Medicine [facility] [address] [facility] [place] [address] Anna Cruz, EXTRUSION SUPERVISOR.[employer] [address] [place] [address] Medicare Wellness [facility] Medicine [facility] Comment on above: Medicare Wellness Start: 05-22-2024 Annual PCP Team Ceo Ziff Davis fer Disease Visit Annual PCP Team Chronic Disease Visit Start: 05-22-2024 BP Controlled (<130/80) BP Controlle d (<130/80) Start: 05-22-2024 Covid-19 Vaccine () Covid-19 Vaccine () Comment on above: Postponed from 02/13 (Declined at this time) Start: 05-22-2024 RSV Vaccine (1 - 1-d ose 60+ series) RSV Vaccine (1 - 1-dose 60+ series) Comment on above: Postponed from 10/24 (Declined at this time) Start: 05-22-2024 Urine microalbumin profile DTaP,Tdap,Td Vaccine (1 - Tdap) Comment on above: Postponed from 01/09 (Declined at this time) Start: 05-08-2024 End: 08-07-2024 CBC panel - Blood by Automated count COMPLETE BLOOD COUNT Lab Routine Essential hypertension Expected: 05/08/2024, Expires: 08/07/2024 [facility] Work Phone: Comment on above: Expected: 05/08/2024 , Expires: 08/07/2024 Start: 05-08-2024 End: 08-07-2024 Comprehensive metabolic 2000 panel - Serum or Plasma COMPREHENSIVE METABOLIC PANEL Lab Routine Mixed hyperlipidemia Expected: 05/08/2024, Expires: 08/07/2024 Comment on above: Expected: 05/08/2024 , Expires: 08/07/2024 Start: 05-08-2024 End: 08-07-2024 Lipid 1996 panel - Serum or Plasma LIPID PANEL BASIC Lab Routine Mixed hyperlipidemia Expected: 05/08/2024, Expires: 08/07/2024 Comment on above: Expected: 05/08/2024 , Expires: 08/07/2024 Start: 04-02-2024 DIABETES SCREEN DIABETES SCREEN [facility] Start: 11-19-2023 ANNUAL PCP TEAM MAGENTO DEVELOPER FER DISEASE VISIT ANNUAL PCP TEAM CHRONIC DISEASE VISIT Start: 11-19-2023 BP CONTROLLED (<130/80) BP CONTROLLE D (<130/80) Start: 11-19-2023 COVID-19 VACCINE (2 - Booster for Moderna series) COVID-19 VACCINE (2 - Booster for Moderna series) Comment on above: Postponed from 04/05 (Declined at this time) Start: 06-15-2023 Advance Directive Discussion Advance Directive Discussion Start: 06-15-2023 Behavioral Health Screening Behavioral Health Screening Start: 06-15-2023 Depression Assessment Depression Ass essment Start: 05-22-2023 End: 08-21-2023 Hemoglobin A1c in Blood [facility] Work Phone: Comment on above: Expected: 05/22/2023 , Expires: 08/21/2023 Start: 05-22-2023 End: 08-21-2023 PSA/PROSTSPECAG SCRN [facility] Work Phone: Comment on above: Expected: 05/22/2023 , Expires: 08/21/2023 Start: 05-21-2023 ANNUAL PCP TEAM MAGENTO DEVELOPER FER DISEASE VISIT ANNUAL PCP TEAM CHRONIC DISEASE VISIT Start: 05-20-2023 End: 07-20-2023 Comprehensive metabolic 2000 panel - Serum or Plasma COMP METABOLIC PANEL Lab Routine Mixed hyperlipidemia Expected: 05/20/2023, Expires: 07/20/2023 [facility] Work Phone: Comment on above: Expected: 05/20/2023 , Expires: 07/20/2023 Start: 05-20-2023 End: 07-20-2023 Lipid 1996 panel - Serum or Plasma LIPID PANEL BASIC Lab Routine Mixed hyperlipidemia Expected: 05/20/2023, Expires: 07/20/2023 [facility] Work Phone: Comment on above: Expected: 05/20/2023 , Expires: 07/20/2023 Start: 05-14-2023 BP CONTROLLED (<130/80) BP CONTROLLE D (<130/80) Start: 05-14-2023 Urine microalbumin profile DTAP,TDAP,TD (1 - Tdap) Comment on above: Postponed from 01/09 (Declined at this time) Start: 11-05-2022 ANNUAL PCP TEAM MAGENTO DEVELOPER FER DISEASE VISIT ANNUAL PCP TEAM CHRONIC DISEASE VISIT Start: 11-05-2022 BP CONTROLLED (<130/80) BP CONTROLLE D (<130/80) Start: 11-05-2022 COVID-19 VACCINE (2 - Moderna series) COVID-19 VACCINE (2 - Moderna series) Comment on above: Postponed from 03/08 (Declined at this time) Start: 10-16-2022 Patient discharge [facility] Start: 06-15-2022 ADVANCE DIRECTIVE DISCUSSION ADVANCE DIRECTIVE DISCUSSION Start: 06-15-2022 DEPRESSION ASSESSMENT DEPRESSION ASS ESSMENT Start: 02-13-2022 Influenza vaccination INFLUENZA (#1) Start: 01-31-2022 Adult depression screening assessment DEPRESSION SCREENING Start: 06-15-2021 ADVANCE DIRECTIVE DISCUSSION ADVANCE DIRECTIVE DISCUSSION Start: 06-11-2014 FECAL OCCULT BLOOD FECAL OCCULT BLOO D Start: 06-11-2014 Screening for malign ant neoplasm of colon Fecal Occult Blood Start: 01-10-2012 Urine microalbumin profile DTAP,TDAP,TD (1 - Tdap) Start: 1998 COLOGUARD (FIT-DNA) COLOGUARD (FIT-D NA) Start: [address] COLONOGRAPHY [facility] Start: 1998 Screening for malign ant neoplasm of colon Start: 1998 SIGMOIDOSCOPY SIGMOIDOSCOPY [facility] Patient referral [facility] Work Phone: Removal impacted cerumen irrigation/lvg unilat AMBULATORY EAR LAVAGE/IRRIGATION Procedures Routine Impacted cerumen, left ear Ordered: 11/18/2022 [facility] Work Phone: Comment on above: Ordered: 11/18/2022 End: 12-13-2025 Screening colonoscopy COLONOSCOPY SCREENING Endoscopy Routine Special screening for malignant neoplasms, colon 1 Occurrences starting 12/13/2024 until 12/13/2025 [facility] Work Phone: Comment on above: 1 Occurrences starti ng 12/13/2024 until 12/13/2025 End: 12-13-2025 STRESS ECHO TREADMILL STRESS ECHO TREADMILL Cardiology Routine REEDER (dyspnea on exertion) 1 Occurrences starting 12/13/2024 until 12/13/2025 Comment on above: 1 Occurrences starti ng 12/13/2024 until 12/13/2025 Tissue Pathology bio psy report [facility] Work Phone: Comment on above: Release Upon Orderin g for 1 Occurrences starting 02/21/2025, [facility] Immunizations Immunization Date Immunization Notes Care Provider Nery pandey 05-24-2024 influenza, high dose seasonal, preservative-free Annaguerrero Cruz EXTRUSION SUPERVISOR.[employer] Work Phone: 05-24-2024 influenza virus vaccine, unspecified formulation Prashanth Mcintyre MD Work Phone: 05-22-2023 influenza (HD-IIV4) vaccine, age 65+ yr, high dose, quadrivalent, PF (FLUZONE HIGH-DOSE) Anna Cruz EXTRUSION SUPERVISOR.[employer] Work Phone: 05-14-2022 influenza, high-dose , quadrivalent vaccine (FLUZONE HIGH DOSE QUADRIVALENT) Prashanth Mcintyre MD Work Phone: 11-05-2021 pneumococcal (PCV20) vaccine, 20 valent (PREVNAR 20) Prashanth Mcintyre MD Work Phone: Work Phone: 04-02-2021 influenza, high-dose , quadrivalent vaccine (FLUZONE HIGH DOSE QUADRIVALENT) Prashanth Mcintyre MD Work Phone: Work Phone: 02-08-2021 COVID-19 vaccine, fu ll dose (MODERNA) Prashanth Mcintyre MD Work Phone: Work Phone: 07-26-2020 influenza, high-dose , quadrivalent vaccine (FLUZONE HIGH DOSE QUADRIVALENT) Prashanth Mcintyre MD Work Phone: Work Phone: 01-19-2020 pneumococcal polysaccharide vaccine, 23 valent Prashanth Mcintyre MD Work Phone: Work Phone: 06-28-2019 zoster vaccine recombinant Prashanth Mcintyre MD Work Phone: Work Phone: 04-04-2019 influenza, high dose seasonal, preservative-free Prashanth Mcintyre MD Work Phone: Work Phone: 03-11-2019 zoster vaccine recombinant Prashanth Mcintyre MD Work Phone: Work Phone: 07-29-2017 influenza, injectabl e, quadrivalent, contains preservative Prashanth Mcintyre MD Work Phone: 07-24-2016 zoster vaccine, live Prashanth Mcintyre MD Work Phone: 06-20-2015 influenza, injectabl e, quadrivalent, contains preservative Prashanth Mcintyre MD Work Phone: 04-08-2013 influenza virus vaccine, unspecified formulation Prashanth Mcintyre MD Work Phone: 04-02-2012 influenza virus vaccine, unspecified formulation Prashanth Micntyre MD Work Phone: Work Phone: 01-09-2012 tetanus and diphther ia toxoids, adsorbed, preservative free, for adult use (2 Lf of tetanus toxoid and 2 Lf of diphtheria toxoid) Prashanth Mcintyre MD Work Phone: Work Phone: 04-08-2011 influenza virus vaccine, unspecified formulation Prashanth Mcintyre MD Work Phone: Work Phone: 04-05-2010 influenza virus vaccine, unspecified formulation Prashanth Mcintyre MD Work Phone: 05-17-2008 influenza virus vaccine, unspecified formulation Prashanth Mcintyre MD Work Phone: 05-27-2007 influenza virus vaccine, unspecified formulation Prashanth Mcintyre MD Work Phone: Work Phone: 09-01-2006 tetanus and diphther ia toxoids, adsorbed, preservative free, for adult use (2 Lf of tetanus toxoid and 2 Lf of diphtheria toxoid) Prashanth Mcintyre MD Work Phone: Work Phone: 06-10-2005 hepatitis A and hepatitis B vaccine Prashanth Mcintyre MD Work Phone: Work Phone: 05-16-2004 haemophilus influenz ae type b conjugate and Hepatitis B vaccine Prashanth Mcintyre MD Work Phone: Work Phone: 04-11-2004 hepatitis A and hepatitis B vaccine Prashanth Mcintyre MD Work Phone: Work Phone: 04-11-2004 TD(adult) unspecifie d formulation Prashanth Mcintyre MD Work Phone: Work Phone: Payers Date Payer Category Payer Medicare (Managed Care) MMO [employer] O [id number] 2023 Medicare [id number] 2023 Medicare [id number] 2023 Medicare [id number] 2022 Self-pay [id number] 2022 Unknown [id number] 2017 Unknown [employer] PPO OOS [id number] 2017-Present [phone] [id number] [place] [address] PPO [id number] 2017 Unknown [employer] CARD PPO OOS [id number] 2017-Present [phone] [address] [place] [address] PPO [id number] 1955 Unknown [id number] 1955 Unknown [id number] 1955 Unknown [id number] Unknown [id number] Unknown [id number] Unknown [id number] Unknown [id number] Social History Date Type Detail Facility Start: 02-10-2020 End: 05-14-2022 Tobacco smoking status [facility] Ex-smoker Start: 02-10-2020 End: 05-14-2022 Tobacco use and exposure Smokeless tobacco non-user Start: 11-05-2021 End: 02-22-2025 Alcohol intake Current non-drinker of alcohol (finding) Start: 1955 Sex Assigned At Not on file [facility] History of tobacco use Current smoker [facility] Start: 10-13-2022 [facility] Start: 1955 Sex Assigned At Male [facility] Start: 11-18-2022 End: 05-22-2023 History of Social function Work Phone: Start: 11-18-2022 End: 05-22-2023 Tobacco use panel Work Phone: Start: 05-16-2012 Adult Depression Screening Assessment 0 Work Phone: Start: 04-02-2023 [facility] Never smoked tobacco [facility] Start: 11-20-2023 Alcohol intake Lifetime non-d raghav (finding) [facility] Has the Waves[place], or water [employer] threatened to shut off services in your home in past 12Mo No [facility] (I/We) worried whechelita er (my/our) food would run out before (I/we) got money to buy more. Never true [facility] How often to you hav e a drink containing alcohol? Never Goals Date Patient Goal Desired Activity /State Functional Status Date Assessment Result Facility 12-11-2014 Are you deaf, or do you have serious difficulty hearing No 12/11/2014 8:08 AM Claudia Barrios LPN No 12-11-2014 Are you blind, or do you have serious difficulty seeing, even when wearing glasses No 12/11/2014 8:08 AM Claudia Barrios LPN No 12-11-2014 Do you have serious difficulty walking or climbing stairs No 12/11/2014 8:08 AM Claudia Barrios LPN No 12-11-2014 Do you have difficul ty dressing or bathing No 12/11/2014 8:08 AM Claudia Barrios LPN No 12-11-2014 Because of a physica l, mental, or emotional condition, do you have difficulty doing errands alone such as visiting a physician's office or shopping No 12/11/2014 8:08 AM EDT Claudia Duval LPN No Mental Status Date Assessment Result Facility 10-16-2022 Cognitive function Voice/Name [facility] Work Phone: 12-11-2014 Because of a physica l, mental, or emotional condition, do you have serious difficulty concentrating, remembering, or making decisions No 12/11/2014 8:08 AM EDT Claudia Duval LPN No Clinical Notes 05-27-2007 to 02-28-2025 Shabana Jimenez APRN.[employer] - 02/28/2025 9:00 AM EDTDischarge Instr - Nursing - Dawn Scott RN - 02/21/2025 8:12 AM Emmy Montano MD - 02/21/2025 7:30 AM EDTPatient Instructions Note Date & Type Note Facility 02-28-2025 History of Present illness Narrative FOLLOW UP VISIT - ENDOSCOPY Aiden Estrada 1955 [id number] REFERRING PHYSICIAN: No referring provider defined for this encounter. Aiden Estrada is a patient I am following for screening colonoscopy-hx of polyps. Dr. De Leon performed lower endoscopy on 02/21/25. The patient was found to have Impression: - Non-bleeding internal hemorrhoids. - Two 1 to 2 mm polyps in the sigmoid colon, removed with a cold biopsy forceps. Resected and retrieved. - Nodular mucosa at the ileocecal valve. Biopsied. Pathology demonstrated: FINAL DIAGNOSIS A. Colon, ileocecal valve, polypectomy: - Ileocolonic mucosa with intramucosal lymphoid aggregates (Peyer's patches), otherwise unremarkable. B. Colon, sigmoid, polypectomies: - Tubular adenoma. - Hyperplastic polyp. AEB/bs 02/22/2025 The patient notes no complaints since the procedure. VITALS: There were no vitals taken for this visit. General: patient is alert, cooperative, pleasant and in no acute distress On examination, the abdomen is benign. Assessment ASSESSMENT/PLAN: 1. Tubular adenoma of colon - ICD9: 211.3, ICD10: D12.6 (primary diagnosis) 2. Hyperplastic colonic polyp, unspecified part of colon - ICD9: 211.3, ICD10: K63.5 The operative findings and pathology report were reviewed with the patient, and the patient has had the opportunity to ask questions and have questions answered. If the patient notes any problems or changes in bowel function, the patient should contact me immediately. Otherwise I recommend follow up endoscopy in 5 years. HM updated. Discussed treatment plan and patient voices understanding. Patient's questions answered appropriately. Medications and potential side effects were discussed and patient voices understanding. Return to the office as scheduled or as needed for worsening/no improvement. Shabana Jimenez APRN.[employer] documented in this encounter 02-28-2025 Note HNO ID: [id number] Author: SHABANA JIMENEZ APRN.[employer] Service: ? Author Type: Nurse Practitioner Type: Progress Notes Filed: 02/28/2025 09:36 Note Text: FOLLOW UP VISIT - ENDOSCOPY Aiden Estrada 1955 [id number] REFERRING PHYSICIAN: No referring provider defined for this encounter. Adien Estrada is a patient I am following for screening colonoscopy-hx of polyps. Dr. De Leon performed lower endoscopy on 02/21/25. The patient was found to have Impression: - Non-bleeding internal hemorrhoids. - Two 1 to 2 mm polyps in the sigmoid colon, removed with a cold biopsy forceps. Resected and retrieved. - Nodular mucosa at the ileocecal valve. Biopsied. Pathology demonstrated: FINAL DIAGNOSIS A. Colon, ileocecal valve, polypectomy: - Ileocolonic mucosa with intramucosal lymphoid aggregates (Peyer's patches), otherwise unremarkable. B. Colon, sigmoid, polypectomies: - Tubular adenoma. - Hyperplastic polyp. AEB/bs 02/22/2025 The patient notes no complaints since the procedure. VITALS: There were no vitals taken for this visit. General: patient is alert, cooperative, pleasant and in no acute distress On examination, the abdomen is benign. Assessment ASSESSMENT/PLAN: 1. Tubular adenoma of colon - ICD9: 211.3, ICD10: D12.6 (primary diagnosis) 2. Hyperplastic colonic polyp, unspecified part of colon - ICD9: 211.3, ICD10: K63.5 The operative findings and pathology report were reviewed with the patient, and the patient has had the opportunity to ask questions and have questions answered. If the patient notes any problems or changes in bowel function, the patient should contact me immediately. Otherwise I recommend follow up endoscopy in 5 years. HM updated. Discussed treatment plan and patient voices understanding. Patient's questions answered appropriately. Medications and potential side effects were discussed and patient voices understanding. Return to the office as scheduled or as needed for worsening/no improvement. Shabana Jimenez APRN.[employer] [facility] 02-21-2025 Note Formatting of this n ote might be different from the original. The patient received a copy of Colonoscopy discharge instructions that contain information for how to contact the physician who performed the procedure and when to seek medical care. 02-21-2025 Miscellaneous Notes The patient received a copy of Colonoscopy discharge instructions that contain information for how to contact the physician who performed the procedure and when to seek medical care. documented in this encounter 02-21-2025 Attending History and physical note UPDATED PROCEDURAL SEDATION HISTORY AND PHYSICAL EXAMINATION SERVICE DATE: 02/21/2025 SERVICE TIME: 7:21 PHYSICAL EXAM MUST BE COMPLETED ON ADMISSION PROCEDURE: colonoscopy, possible biopsies Procedure Indications: history of colon polyps The History and Physical (completed in the past 30 days) has been reviewed and the patient has been examined. The contents accurately reflect the patient's condition with the following additions or revisions since the H&P was completed. ASA Class: ASA Class: Patient with mild systemic disease Examination indicates no changes. AIRWAY: Mouth opening greater than 3 fingerbreadths: Yes Neck Full Range of Motion: Yes LUNGS: Lungs clear to auscultation CARDIAC: Regular rhythm,Regular rate Provisional Diagnosis/Treatment Plan: colonoscopy, possible biopsies Sedation Goal: Moderate This H&P can be found in the Electronic Medical Record. SIGNATURE: Emmy De Leon MD PATIENT NAME: Aiden Estrada DATE: February 21, 2025 TIME: 7:25 AM Source Note - Emmy De Leon MD - 02/21/2025 7:30 AM EDT HISTORY AND PHYSICAL Aiden Estrada 1955 REFERRING PHYSICIAN: Prashanth Mcintyre MD CHIEF COMPLAINT: No chief complaint on file. HPI: The patient is a 69 year old male here for colonoscopy. Last colonoscopy 2019 with findings of tubular adenoma PAST MEDICAL HISTORY Diagnosis Date Benign neoplasm of colon 10/12/2009 Tubular adenoma. 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 COVID-19 06/25/2020 Esophageal dysphagia 05/02/2021 Essential tremor 02/12/2018 Gastroesophageal reflux disease with esophagitis without hemorrhage 11/18/2022 Headache(784.0) 05/27/2007 Migraines in his 20s; CT 05-22-07 ([place]): NL. HYPERLIPIDEMIA NEC/NOS 06/01/2007 HYPERTENSION NOS 05/27/2007 Pyelonephritis, unspecified 05/27/2007 Rheumatic fever in pediatric patient 1960 Snoring PAST SURGICAL HISTORY Procedure Laterality Date CATARACT EXTRACTION W/ INTRAOCULAR LENS IMPLANT HX Bilateral 11/2016 & 11/2016 COLONOSCOPY FLX DX W/COLLJ SPEC WHEN PFRMD 12/21/2014 Colonoscopy COLONOSCOPY FLX DX W/COLLJ SPEC WHEN PFRMD 02/10/2020 Colonoscopy COLONOSCOPY W/BIOPSY SINGLE/MULTIPLE 08/24/2008 EGD BIOPSY SING OR MULT 10/16/2022 [facility] TONSILLECTOMY PRIMARY/SECONDARY Tonsillectomy Current Outpatient Medications Medication Sig atorvastatin (LIPITOR) 20 mg tablet Take 1 tablet by mouth daily at bedtime. For cholesterol. lisinopril (ZESTRIL) 5 mg tablet Take 1 tablet by mouth once daily. pantoprazole DR (PROTONIX) 40 mg tablet Take 1 tablet by mouth two times a day. Take on empty stomach, 1/2 hr before meal. propranolol (INDERAL) 10 mg tablet Take 1 tablet by mouth two times a day. Gklgapychiham-Zktrdcdr-Skpebl (CENTRUM SILVER) tab Take 1 tablet by mouth once daily. [place]-3 Fatty Acids-Vitamin E (FISH OIL) 1,000 mg cap Take 1 capsule by mouth once daily. Lutein 20 mg cap Take 1 capsule by mouth once daily. Current Facility-Administered Medications Medication Dose Route Frequency lactated ringers iv infusion 30 mL/hr INTRAVENOUS CONTINUOUS ALLERGIES: Patient has no known allergies. PERSONAL HISTORY: SOCIAL HISTORY[1] FAMILY HISTORY Problem Relation Age of Onset Hypertension Mother Hypertension Father Prostate Cancer Father No Known Problems Sister Hypertension Brother Diabetes Brother Coronary Artery Disease Brother sudden Hypertension Brother Diabetes Brother Uterine Fibroids Brother Arrhythmia Brother A.fib No Known Problems Brother Hypertension Maternal Grandmother Diabetes Maternal Grandmother Hypertension Maternal Grandfather Hypertension Paternal Grandmother Diabetes Paternal Grandmother REVIEW OF SYMPTOMS: Denies chest pain Denies shortness of breath PHYSICAL EXAMINATION: General: The patient is 69 year old male, well nourished, well hydrated in no acute distress. The patient is oriented to time, place, and person. VITALS: Blood pressure 154/79, pulse (!) 54, temperature 36.6 C (97.8 F), temperature source Temporal Artery, resp. rate 16, weight 84.8 kg (186 lb 15.2 oz), SpO2 99%. Body mass index is 27.21 kg/m . Head - Normocephalic. EOM intact with sclera clear. Mouth with mucus membranes moist. Neck - supple with no jugular venous distention noted. Trachea is midline. Lungs - normal breath sounds, normal respiratory motion, no adventitial sounds noted. Heart - normal heart sounds. Regular rate. Abdomen - soft and benign. Extremities - no pitting edema noted. Skin - Normal skin integrity. Neurological - non focal Psych - calm and appropriate Impression: history of colon polyp Discussion/Plan/Recommendations: I have discussed the above with the patient. I have offered colonoscopy , possible biopsies I have explained the procedure to the patient. I have counseled the patient as to the risks of the procedure, including but not limited to: infection, bleeding, injury to any intrabdominal organs such as liver/spleen, perforation of the GI tract, inability to complete the procedure, complications of anesthesia, etc. - the patient understands. The patient wishes to proceed. I have answered all questions to the patient s satisfaction and the patient has no further questions. Emmy De Leon MD [1] Social History Tobacco Use Smoking status: Former Smokeless tobacco: Never Vaping Use Vaping status: Never Used Substance Use Topics Alcohol use: No Drug use: No Work Phone: 02-21-2025 History and physical note HISTORY AND PHYSICAL Aiden Estrada 1955 REFERRING PHYSICIAN: Prashanth Mcintyre MD CHIEF COMPLAINT: No chief complaint on file. HPI: The patient is a 69 year old male here for colonoscopy. Last colonoscopy 2019 with findings of tubular adenoma PAST MEDICAL HISTORY Diagnosis Date Benign neoplasm of colon 10/12/2009 Tubular adenoma. 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 COVID-19 06/25/2020 Esophageal dysphagia 05/02/2021 Essential tremor 02/12/2018 Gastroesophageal reflux disease with esophagitis without hemorrhage 11/18/2022 Headache(784.0) 05/27/2007 Migraines in his 20s; CT 05-22-07 ([place]): NL. HYPERLIPIDEMIA NEC/NOS 06/01/2007 HYPERTENSION NOS 05/27/2007 Pyelonephritis, unspecified 05/27/2007 Rheumatic fever in pediatric patient 1960 Snoring PAST SURGICAL HISTORY Procedure Laterality Date CATARACT EXTRACTION W/ INTRAOCULAR LENS IMPLANT HX Bilateral 11/2016 & 11/2016 COLONOSCOPY FLX DX W/COLLJ SPEC WHEN PFRMD 12/21/2014 Colonoscopy COLONOSCOPY FLX DX W/COLLJ SPEC WHEN PFRMD 02/10/2020 Colonoscopy COLONOSCOPY W/BIOPSY SINGLE/MULTIPLE 08/24/2008 EGD BIOPSY SING OR MULT 10/16/2022 [facility] TONSILLECTOMY PRIMARY/SECONDARY Tonsillectomy Current Outpatient Medications Medication Sig atorvastatin (LIPITOR) 20 mg tablet Take 1 tablet by mouth daily at bedtime. For cholesterol. lisinopril (ZESTRIL) 5 mg tablet Take 1 tablet by mouth once daily. pantoprazole DR (PROTONIX) 40 mg tablet Take 1 tablet by mouth two times a day. Take on empty stomach, 1/2 hr before meal. propranolol (INDERAL) 10 mg tablet Take 1 tablet by mouth two times a day. Agownzdmsijgj-Eakrsjhw-Ozjduj (CENTRUM SILVER) tab Take 1 tablet by mouth once daily. [place]-3 Fatty Acids-Vitamin E (FISH OIL) 1,000 mg cap Take 1 capsule by mouth once daily. Lutein 20 mg cap Take 1 capsule by mouth once daily. Current Facility-Administered Medications Medication Dose Route Frequency lactated ringers iv infusion 30 mL/hr INTRAVENOUS CONTINUOUS ALLERGIES: Patient has no known allergies. PERSONAL HISTORY: SOCIAL HISTORY[1] FAMILY HISTORY Problem Relation Age of Onset Hypertension Mother Hypertension Father Prostate Cancer Father No Known Problems Sister Hypertension Brother Diabetes Brother Coronary Artery Disease Brother sudden Hypertension Brother Diabetes Brother Uterine Fibroids Brother Arrhythmia Brother A.fib No Known Problems Brother Hypertension Maternal Grandmother Diabetes Maternal Grandmother Hypertension Maternal Grandfather Hypertension Paternal Grandmother Diabetes Paternal Grandmother REVIEW OF SYMPTOMS: Denies chest pain Denies shortness of breath PHYSICAL EXAMINATION: General: The patient is 69 year old male, well nourished, well hydrated in no acute distress. The patient is oriented to time, place, and person. VITALS: Blood pressure 154/79, pulse (!) 54, temperature 36.6 C (97.8 F), temperature source Temporal Artery, resp. rate 16, weight 84.8 kg (186 lb 15.2 oz), SpO2 99%. Body mass index is 27.21 kg/m . Head - Normocephalic. EOM intact with sclera clear. Mouth with mucus membranes moist. Neck - supple with no jugular venous distention noted. Trachea is midline. Lungs - normal breath sounds, normal respiratory motion, no adventitial sounds noted. Heart - normal heart sounds. Regular rate. Abdomen - soft and benign. Extremities - no pitting edema noted. Skin - Normal skin integrity. Neurological - non focal Psych - calm and appropriate Impression: history of colon polyp Discussion/Plan/Recommendations: I have discussed the above with the patient. I have offered colonoscopy , possible biopsies I have explained the procedure to the patient. I have counseled the patient as to the risks of the procedure, including but not limited to: infection, bleeding, injury to any intrabdominal organs such as liver/spleen, perforation of the GI tract, inability to complete the procedure, complications of anesthesia, etc. - the patient understands. The patient wishes to proceed. I have answered all questions to the patient s satisfaction and the patient has no further questions. Emmy De Leon MD [1] Social History Tobacco Use Smoking status: Former Smokeless tobacco: Never Vaping Use Vaping status: Never Used Substance Use Topics Alcohol use: No Drug use: No 02-21-2025 History and physical note UPDATED PROCEDURAL SEDATION HISTORY AND PHYSICAL EXAMINATION SERVICE DATE: 02/21/2025 SERVICE TIME: 7:21 PHYSICAL EXAM MUST BE COMPLETED ON ADMISSION PROCEDURE: colonoscopy, possible biopsies Procedure Indications: history of colon polyps The History and Physical (completed in the past 30 days) has been reviewed and the patient has been examined. The contents accurately reflect the patient's condition with the following additions or revisions since the H&P was completed. ASA Class: ASA Class: Patient with mild systemic disease Examination indicates no changes. AIRWAY: Mouth opening greater than 3 fingerbreadths: Yes Neck Full Range of Motion: Yes LUNGS: Lungs clear to auscultation CARDIAC: Regular rhythm,Regular rate Provisional Diagnosis/Treatment Plan: colonoscopy, possible biopsies Sedation Goal: Moderate This H&P can be found in the Electronic Medical Record. SIGNATURE: Emmy De Leon MD PATIENT NAME: Aiden Estrada DATE: February 21, 2025 TIME: 7:25 AM Source Note - Emmy De Leon MD - 02/21/2025 7:30 AM EDT HISTORY AND PHYSICAL Aiden Estrada 1955 REFERRING PHYSICIAN: Prashanth Mcintyre MD CHIEF COMPLAINT: No chief complaint on file. HPI: The patient is a 69 year old male here for colonoscopy. Last colonoscopy 2019 with findings of tubular adenoma PAST MEDICAL HISTORY Diagnosis Date Benign neoplasm of colon 10/12/2009 Tubular adenoma. 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 COVID-19 06/25/2020 Esophageal dysphagia 05/02/2021 Essential tremor 02/12/2018 Gastroesophageal reflux disease with esophagitis without hemorrhage 11/18/2022 Headache(784.0) 05/27/2007 Migraines in his 20s; CT 05-22-07 ([facility]): NL. HYPERLIPIDEMIA NEC/NOS 06/01/2007 HYPERTENSION NOS 05/27/2007 Pyelonephritis, unspecified 05/27/2007 Rheumatic fever in pediatric patient 1962 Snoring PAST SURGICAL HISTORY Procedure Laterality Date CATARACT EXTRACTION W/ INTRAOCULAR LENS IMPLANT HX Bilateral 11/2016 & 11/2016 COLONOSCOPY FLX DX W/COLLJ SPEC WHEN PFRMD 12/21/2014 Colonoscopy COLONOSCOPY FLX DX W/COLLJ SPEC WHEN PFRMD 02/10/2020 Colonoscopy COLONOSCOPY W/BIOPSY SINGLE/MULTIPLE 08/24/2008 EGD BIOPSY SING OR MULT 10/16/2022 [facility] TONSILLECTOMY PRIMARY/SECONDARY <AGE 10 1960 Tonsillectomy Current Outpatient Medications Medication Sig atorvastatin (LIPITOR) 20 mg tablet Take 1 tablet by mouth daily at bedtime. For cholesterol. lisinopril (ZESTRIL) 5 mg tablet Take 1 tablet by mouth once daily. pantoprazole DR (PROTONIX) 40 mg tablet Take 1 tablet by mouth two times a day. Take on empty stomach, 1/2 hr before meal. propranolol (INDERAL) 10 mg tablet Take 1 tablet by mouth two times a day. Gzidrjsiguqnl-Whnvdscm-Xcgvhj (CENTRUM SILVER) tab Take 1 tablet by mouth once daily. [place]-3 Fatty Acids-Vitamin E (FISH OIL) 1,000 mg cap Take 1 capsule by mouth once daily. Lutein 20 mg cap Take 1 capsule by mouth once daily. Current Facility-Administered Medications Medication Dose Route Frequency lactated ringers iv infusion 30 mL/hr INTRAVENOUS CONTINUOUS ALLERGIES: Patient has no known allergies. PERSONAL HISTORY: SOCIAL HISTORY[1] FAMILY HISTORY Problem Relation Age of Onset Hypertension Mother Hypertension Father Prostate Cancer Father No Known Problems Sister Hypertension Brother Diabetes Brother Coronary Artery Disease Brother sudden Hypertension Brother Diabetes Brother Uterine Fibroids Brother Arrhythmia Brother A.fib No Known Problems Brother Hypertension Maternal Grandmother Diabetes Maternal Grandmother Hypertension Maternal Grandfather Hypertension Paternal Grandmother Diabetes Paternal Grandmother REVIEW OF SYMPTOMS: Denies chest pain Denies shortness of breath PHYSICAL EXAMINATION: General: The patient is 69 year old male, well nourished, well hydrated in no acute distress. The patient is oriented to time, place, and person. VITALS: Blood pressure 154/79, pulse (!) 54, temperature 36.6 C (97.8 F), temperature source Temporal Artery, resp. rate 16, weight 84.8 kg (186 lb 15.2 oz), SpO2 99%. Body mass index is 27.21 kg/m . Head - Normocephalic. EOM intact with sclera clear. Mouth with mucus membranes moist. Neck - supple with no jugular venous distention noted. Trachea is midline. Lungs - normal breath sounds, normal respiratory motion, no adventitial sounds noted. Heart - normal heart sounds. Regular rate. Abdomen - soft and benign. Extremities - no pitting edema noted. Skin - Normal skin integrity. Neurological - non focal Psych - calm and appropriate Impression: history of colon polyp Discussion/Plan/Recommendations: I have discussed the above with the patient. I have offered colonoscopy , possible biopsies I have explained the procedure to the patient. I have counseled the patient as to the risks of the procedure, including but not limited to: infection, bleeding, injury to any intrabdominal organs such as liver/spleen, perforation of the GI tract, inability to complete the procedure, complications of anesthesia, etc. - the patient understands. The patient wishes to proceed. I have answered all questions to the patient s satisfaction and the patient has no further questions. Emmy De Leon MD [1] Social History Tobacco Use Smoking status: Former Smokeless tobacco: Never Vaping Use Vaping status: Never Used Substance Use Topics Alcohol use: No Drug use: No HISTORY AND PHYSICAL Aiden Estrada 1955 REFERRING PHYSICIAN: Prashanth Mcintyre MD CHIEF COMPLAINT: No chief complaint on file. HPI: The patient is a 69 year old male here for colonoscopy. Last colonoscopy 2019 with findings of tubular adenoma PAST MEDICAL HISTORY Diagnosis Date Benign neoplasm of colon 10/12/2009 Tubular adenoma. 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 COVID-19 06/25/2020 Esophageal dysphagia 05/02/2021 Essential tremor 02/12/2018 Gastroesophageal reflux disease with esophagitis without hemorrhage 11/18/2022 Headache(784.0) 05/27/2007 Migraines in his 20s; CT 05-22-07 ([place]): NL. HYPERLIPIDEMIA NEC/NOS 06/01/2007 HYPERTENSION NOS 05/27/2007 Pyelonephritis, unspecified 05/27/2007 Rheumatic fever in pediatric patient 1962 Snoring PAST SURGICAL HISTORY Procedure Laterality Date CATARACT EXTRACTION W/ INTRAOCULAR LENS IMPLANT HX Bilateral 11/2016 & 11/2016 COLONOSCOPY FLX DX W/COLLJ SPEC WHEN PFRMD 12/21/2014 Colonoscopy COLONOSCOPY FLX DX W/COLLJ SPEC WHEN PFRMD 02/10/2020 Colonoscopy COLONOSCOPY W/BIOPSY SINGLE/MULTIPLE 08/24/2008 EGD BIOPSY SING OR MULT 10/16/2022 [facility] TONSILLECTOMY PRIMARY/SECONDARY <AGE 10 1960 Tonsillectomy Current Outpatient Medications Medication Sig atorvastatin (LIPITOR) 20 mg tablet Take 1 tablet by mouth daily at bedtime. For cholesterol. lisinopril (ZESTRIL) 5 mg tablet Take 1 tablet by mouth once daily. pantoprazole DR (PROTONIX) 40 mg tablet Take 1 tablet by mouth two times a day. Take on empty stomach, 1/2 hr before meal. propranolol (INDERAL) 10 mg tablet Take 1 tablet by mouth two times a day. Mtofitllrgsor-Rlljrsnl-Exhezp (CENTRUM SILVER) tab Take 1 tablet by mouth once daily. [place]-3 Fatty Acids-Vitamin E (FISH OIL) 1,000 mg cap Take 1 capsule by mouth once daily. Lutein 20 mg cap Take 1 capsule by mouth once daily. Current Facility-Administered Medications Medication Dose Route Frequency lactated ringers iv infusion 30 mL/hr INTRAVENOUS CONTINUOUS ALLERGIES: Patient has no known allergies. PERSONAL HISTORY: SOCIAL HISTORY[1] FAMILY HISTORY Problem Relation Age of Onset Hypertension Mother Hypertension Father Prostate Cancer Father No Known Problems Sister Hypertension Brother Diabetes Brother Coronary Artery Disease Brother sudden Hypertension Brother Diabetes Brother Uterine Fibroids Brother Arrhythmia Brother A.fib No Known Problems Brother Hypertension Maternal Grandmother Diabetes Maternal Grandmother Hypertension Maternal Grandfather Hypertension Paternal Grandmother Diabetes Paternal Grandmother REVIEW OF SYMPTOMS: Denies chest pain Denies shortness of breath PHYSICAL EXAMINATION: General: The patient is 69 year old male, well nourished, well hydrated in no acute distress. The patient is oriented to time, place, and person. VITALS: Blood pressure 154/79, pulse (!) 54, temperature 36.6 C (97.8 F), temperature source Temporal Artery, resp. rate 16, weight 84.8 kg (186 lb 15.2 oz), SpO2 99%. Body mass index is 27.21 kg/m . Head - Normocephalic. EOM intact with sclera clear. Mouth with mucus membranes moist. Neck - supple with no jugular venous distention noted. Trachea is midline. Lungs - normal breath sounds, normal respiratory motion, no adventitial sounds noted. Heart - normal heart sounds. Regular rate. Abdomen - soft and benign. Extremities - no pitting edema noted. Skin - Normal skin integrity. Neurological - non focal Psych - calm and appropriate Impression: history of colon polyp Discussion/Plan/Recommendations: I have discussed the above with the patient. I have offered colonoscopy , possible biopsies I have explained the procedure to the patient. I have counseled the patient as to the risks of the procedure, including but not limited to: infection, bleeding, injury to any intrabdominal organs such as liver/spleen, perforation of the GI tract, inability to complete the procedure, complications of anesthesia, etc. - the patient understands. The patient wishes to proceed. I have answered all questions to the patient s satisfaction and the patient has no further questions. Emmy De Leon MD [1] Social History Tobacco Use Smoking status: Former Smokeless tobacco: Never Vaping Use Vaping status: Never Used Substance Use Topics Alcohol use: No Drug use: No documented in this encounter 12-20-2024 Telephone encounter Note Patient notified on secured voicemail. Cammy Wade LPN 12-20-2024 Miscellaneous Notes Patient notified on secured voicemail. Cammy Wade LPN ----- Message from Prashanth Mcintyre MD sent at 12/19/2024 8:27 AM EDT ----- CBC, BMP within normal limits. documented in this encounter 12-20-2024 Telephone encounter Note ----- Message from Prashanth Mcintyre MD sent at 12/19/2024 8:27 AM EDT ----- CBC, BMP within normal limits. 12-13-2024 Instructions Prashanth Mcintyre MD - 12/13/2024 10:46 AM EDT Health Information For Patients and the Community How to Prepare for Your Colonoscopy Using Golytely, Nulytely, Trilyte or Colyte Preparations IMPORTANT - Please Read These Instructions at Least 2 Weeks Before Your Colonoscopy Schneider Instructions: ?Your bowel must be empty so that your doctor can clearly view your colon. Follow all of the instructions in this handout EXACTLY as they are written. If you do NOT follow the directions for when to start drinking the bowel preparation (see next page), your colonoscopy WILL be cancelled. ?Do NOT eat any solid food the ENTIRE day before your colonoscopy. ?Buy your bowel preparation at least 5 days before your colonoscopy. ?Do NOT mix the solution until the day before your colonoscopy. Designated Handle Sewer on the Day of Your Exam A responsible family member or friend MUST come with you to your colonoscopy and REMAIN in the endoscopy area until you are discharged! You are NOT ALLOWED to drive, take a taxi or bus, or leave the Endoscopy Center ALONE. If you do not have a responsible skidder driver (family member or friend) with you to take you home, your exam cannot be done with sedation and will be cancelled. Medications Some of the medicines you take may need to be stopped or adjusted before your colonoscopy. You MUST call the doctor who ordered any of the following medicines at least 2 weeks before your colonoscopy. ?Blood thinners -- such as Coumadin (warfarin), Plavix (clopidogrel), Ticlid (ticlopidine hydrochloride), Agrylin (anagrelide), Xarelto (Rivaroxaban), Pradaxa (Dabigatran), Eliquis (Apixaban), and Effient (Prasugrel). ?Insulin or diabetes pills. Please call the doctor that monitors your glucose levels. Your insulin dosage may need to be adjusted due to the diet restrictions required with this bowel preparation. (Please bring your diabetes medicines with you on the day of your procedure.) If you take aspirin, take it and ALL other medications prescribed by your doctor. On the day of your colonoscopy, take your medications with a sip of water. Revised 07/2016 1 Five (5) Days Before Your Colonoscopy ?Do NOT take medicines that stop diarrhea -- such as Imodium , Kaopectate , or Pepto Bismol . ?Do NOT take fiber supplements -- such as Metamucil , Citrucel , or Perdiem . ?Do NOT take products that contain iron -- such as multi-vitamins -- (the label lists what is in the products). ?Do NOT take vitamin E. Buy the prescription bowel preparation solution at your local pharmacy or drugstore pharmacy. Three (3) Days Before Your Colonoscopy Do NOT eat high-fiber foods -- such as popcorn, beans, seeds (flax, sunflower, quinoa), multigrain bread, nuts, salad/vegetables, or fresh and dried fruit. One (1) Day Before Your Colonoscopy Only drink clear liquids the ENTIRE DAY before your colonoscopy. Do NOT eat any solid foods. Drink at least 8 ounces of clear liquids every hour after waking up. The clear liquids you can drink include: ?water, apple, or white grape juice; broth; coffee or tea (without milk or creamer); clear carbonated beverages such as miriam elgin or lemon-[place] soda; Gatorade or other sports drinks (not red); Juan-Aid or other flavored drinks (not red). You may eat plain jello or other gelatins (not red) or popsicles (not red). Do NOT drink alcohol on the day before or the day of the procedure. 2 Revised 07/2016 When to Mix and Drink Your Bowel Prep Follow the instructions on the label. After mixing, place the solution in the refrigerator for a couple of hours before drinking. You may add the flavor packet that came with the bowel preparation. DO NOT add ice, sugar or any flavorings to the solution. Evening Before Your Colonoscopy ?Start drinking the bowel preparation at 6 PM the evening before your colonoscopy. Drink an 8-oz glass of bowel preparation every 10 minutes. You must finish drinking the solution by 9 PM the night before your scheduled procedure. ?You may continue to drink clear liquids only until midnight. Do NOT eat or drink ANYTHING after midnight the night before your procedure or your procedure may be cancelled. This is for your safety and will reduce the risk of having any food or liquid in your stomach move into your lungs (aspiration) during a procedure. If you take aspirin, take it and ALL other prescribed medicines with a sip of water on the day of your colonoscopy. Contact Information: If you are unable to keep your appointment or have any questions about the instructions, please call the facility where the procedure is being performed. Call between the hours of 8:00 AM and 5:00 PM. If you are calling after 5:00 PM, please call Nurse career based intervention coordinator at [phone]. [facility] [address] [place] [id number] Index # [id number] Revised 07/2016 3 Colonoscopy Procedure Overview Please Read Prior to the Procedure What is a Colonoscopy A colonoscopy is an outpatient procedure in which the inside of the large intestine (colon and rectum) is examined. A colonoscopy is commonly used to evaluate gastrointestinal symptoms, such as rectal and intestinal bleeding, abdominal pain, or changes in bowel habits. Colonoscopies are also performed in individuals without symptoms to check for colorectal polyps or cancer. A screening colonoscopy is recommended for anyone 50 years of age and older, and for anyone with parents, siblings or children with a history of colorectal cancer or polyps. What Happens Before a Colonoscopy To have a successful colonoscopy, your bowel must be empty so that your physician can clearly view the colon. To do this, it is very important to read and follow all of the instructions given to you at least 2 weeks BEFORE your exam. If your bowel is not empty, your colonoscopy will not be successful and may have to be repeated. If you feel nauseated or vomit while taking the bowel preparation, wait 30 minutes before drinking more fluid and start with small sips of solution. Some activity (such as walking) or a few soda crackers may help decrease the nausea you are feeling. If the nausea persists, please contact nurse control director at [phone]. You may experience skin irritation around the anus due to the passage of liquid stools. To prevent and treat skin irritation, you should: ?Apply Vaseline or Desitin ointment to the skin around the anus before drinking the bowel preparation medications. These products can be purchased at any [employer]. ?Wipe the skin after each bowel movement with disposable wet wipes instead of toilet paper. These are found in the toilet paper area of the store. ?Sit in a bathtub filled with warm water for 10 to 15 minutes after you finish passing a stool; after soaking, blot the skin dry with a soft cloth, apply Vaseline or Desitin ointment to the anal area, and place a cotton ball just outside your anus to absorb leaking fluid. What Happens During a Colonoscopy During a colonoscopy, an experienced physician uses a colonoscope (a long, flexible instrument about 1/2 inch in diameter) to view the lining of the colon. The colonoscope is inserted into the rectum and advanced through the large intestine. If necessary during a colonoscopy, small amounts of tissue can be removed for analysis (a biopsy) and polyps can be identified and entirely removed. In many cases, a colonoscopy allows accurate diagnosis and treatment of colorectal problems without the need for a major operation. Revised 07/2016 5 ?You are asked to wear a hospital gown and an IV will be started. ?You are given a pain reliever and a sedative intravenously (in your vein). You will feel relaxed and somewhat drowsy. ?You will lie on your left side, with your knees drawn up towards your chest. ?A small amount of air is used to expand the colon so the physician can see the colon stokes. ?You may feel mild cramping during the procedure. Cramping can be reduced by taking slow, deep breaths. ?The colonoscope is slowly withdrawn while the lining of your bowel is carefully examined. ?The procedure lasts from 30 minutes to 1 hour. What Happens After a Colonoscopy ?You will stay in a recovery room for observation until you are ready for discharge. ?You may feel some cramping or a sensation of having gas, but this quickly passes. ?If sedation has been given, a responsible family member or friend must drive you home. ?Avoid alcohol, driving, and operating machinery for 24 hours following the procedure. ?Unless otherwise instructed, you may immediately return to your normal diet. We recommend you wait until the day after your procedure to resume normal activities. ?If polyps were removed or a biopsy was taken, the physician performing your colonoscopy will tell you when it is safe to resume taking your blood thinners. ?If a biopsy was taken or a polyp was removed, you may notice a little amount of rectal bleeding for 1 to 2 days after the procedure. If you have a large amount of rectal bleeding, high or persistent fevers, or severe abdominal pain within the next 2 weeks, please go to your local emergency room and call the physician who performed your exam. 6 Revised 07/2016 Copyright 4803-8811 The [facility]. All rights reserved. Revised 07/2016 documented in this encounter 12-13-2024 Note HNO ID: [id number] Author: PRASHANTH MCINTYRE MD Service: ? Author Type: Physician Type: Progress Notes Filed: 12/13/2024 10:59 Note Text: This note was created using [email or web address]. Subjective Aiden Estrada is a 69 year old male. His noted dyspnea on exertion gradually progressing over the past 6 months. He had no other associated symptoms. His hypertension, tremor, and hyperlipidemia were historically controlled. Gomez Activity Status Index Score: 50.7. Metabolic equivalents 8.97. Review of Systems Constitutional: Negative for fatigue and fever. HENT: Negative for congestion. Respiratory: Negative for cough and chest tightness. Cardiovascular: Negative for chest pain, palpitations and leg swelling. Gastrointestinal: Negative for blood in stool, nausea and vomiting. Neurological: Negative for dizziness and headaches. ACTIVE PROBLEM LIST Essential Hypertension Mixed Hyperlipidemia Benign Neoplasm of Colon Essential Tremor Osteopenia Bph With Obstruction/Lower Urinary Tract Symptoms Gastroesophageal Reflux Disease With Esophagitis Without Hemorrhage Impaired Fasting Glucose Social History Tobacco Use Smoking status: Former Smokeless tobacco: Never Vaping Use Vaping status: Never Used Substance Use Topics Alcohol use: No Drug use: No Current Outpatient Medications Medication Sig Kfrbtxnynirqo-Knufammo-Tvoeuh (CENTRUM SILVER) tab Take 1 tablet by mouth once daily. [place]-3 Fatty Acids-Vitamin E (FISH OIL) 1,000 mg cap Take 1 capsule by mouth once daily. Lutein 20 mg cap Take 1 capsule by mouth once daily. atorvastatin (LIPITOR) 20 mg tablet Take 1 tablet by mouth daily at bedtime. For cholesterol. lisinopril (ZESTRIL) 5 mg tablet Take 1 tablet by mouth once daily. pantoprazole DR (PROTONIX) 40 mg tablet Take 1 tablet by mouth two times a day. Take on empty stomach, 1/2 hr before meal. propranolol (INDERAL) 10 mg tablet Take 1 tablet by mouth two times a day. peg 3350-electrolytes (GAVILYTE-C) 240-22.72-6.72 -5.84 gram solution Take 4,000 mL by mouth one time only for 1 dose. No current facility-administered medications for this visit. Objective BP 130/78 Pulse (!) 56 Resp 16 Wt 84.8 kg (186 lb 15.2 oz) SpO2 98% BMI 27.21 kg/m? Physical Exam Constitutional: General: He is not in acute distress. Appearance: He is not ill-appearing. Cardiovascular: Rate and Rhythm: Regular rhythm. Bradycardia present. Pulses: Normal pulses. Heart sounds: S1 normal and S2 normal. No murmur heard. Pulmonary: Breath sounds: Normal breath sounds. No wheezing or rales. Abdominal: Tenderness: There is no abdominal tenderness. Musculoskeletal: Right lower leg: No edema. Left lower leg: No edema. Neurological: Mental Status: He is alert. EKG RESULTS: sinus bradycardia and increased R/S ratio V1. Early transition in chest leads. Abnormal EKG. Last EKG normal, but from 2009. Assessment and Plan 1. REEDER (dyspnea on exertion) - ICD9: 786.09, ICD10: R06.09 (primary diagnosis) Shared medical decision making was done. We agreed to stress testing. Further recommendation will depend on result. - COMPLETE BLOOD COUNT - BASIC METABOLIC PANEL - STRESS ECHO TREADMILL - PERFLUTREN LIPID MICROSPHERES 1.1 MG/ML INJECTION IN NS 10 ML - SODIUM CHLORIDE 0.9 % (FLUSH) INJECTION SYRINGE 2. Mixed hyperlipidemia - ICD9: 272.2, ICD10: E78.2 - Controlled - Continue current medications - Counseled on healthy diet and regular exercise - ATORVASTATIN 20 MG TABLET - COMPREHENSIVE METABOLIC PANEL - LIPID PANEL, FASTING 3. Essential hypertension - ICD9: 401.9, ICD10: I10 - Controlled - Continue current medications - LISINOPRIL 5 MG TABLET 4. Gastroesophageal reflux disease with esophagitis without hemorrhage - ICD9: 530.81, 530.10, ICD10: K21.00 - Controlled. Continue PPI. - PANTOPRAZOLE 40 MG TABLET,DELAYED RELEASE 5. Essential tremor - ICD9: 333.1, ICD10: G25.0 - Controlled. Continue medication. - PROPRANOLOL 10 MG TABLET 6. Special screening for malignant neoplasms, colon - ICD9: V76.51, ICD10: Z12.11 - COLONOSCOPY SCREENING - PEG 3350 240 GRAM-ELECTROLYTES 22.72 GRAM-6.72 G-5.84 G POWDR FOR BONNIE Mcintyre MD [facility] 12-13-2024 History of Present illness Narrative This note was created using [email or web address]. Subjective Aiden Estrada is a 69 year old male. His noted dyspnea on exertion gradually progressing over the past 6 months. He had no other associated symptoms. His hypertension, tremor, and hyperlipidemia were historically controlled. Gomez Activity Status Index Score: 50.7. Metabolic equivalents 8.97. Review of Systems Constitutional: Negative for fatigue and fever. HENT: Negative for congestion. Respiratory: Negative for cough and chest tightness. Cardiovascular: Negative for chest pain, palpitations and leg swelling. Gastrointestinal: Negative for blood in stool, nausea and vomiting. Neurological: Negative for dizziness and headaches. ACTIVE PROBLEM LIST Essential Hypertension Mixed Hyperlipidemia Benign Neoplasm of Colon Essential Tremor Osteopenia Bph With Obstruction/Lower Urinary Tract Symptoms Gastroesophageal Reflux Disease With Esophagitis Without Hemorrhage Impaired Fasting Glucose Social History Tobacco Use Smoking status: Former Smokeless tobacco: Never Vaping Use Vaping status: Never Used Substance Use Topics Alcohol use: No Drug use: No Current Outpatient Medications Medication Sig Osihlgdoyoqad-Mlmyelex-Xawevj (CENTRUM SILVER) tab Take 1 tablet by mouth once daily. [place]-3 Fatty Acids-Vitamin E (FISH OIL) 1,000 mg cap Take 1 capsule by mouth once daily. Lutein 20 mg cap Take 1 capsule by mouth once daily. atorvastatin (LIPITOR) 20 mg tablet Take 1 tablet by mouth daily at bedtime. For cholesterol. lisinopril (ZESTRIL) 5 mg tablet Take 1 tablet by mouth once daily. pantoprazole DR (PROTONIX) 40 mg tablet Take 1 tablet by mouth two times a day. Take on empty stomach, 1/2 hr before meal. propranolol (INDERAL) 10 mg tablet Take 1 tablet by mouth two times a day. peg 3350-electrolytes (GAVILYTE-C) 240-22.72-6.72 -5.84 gram solution Take 4,000 mL by mouth one time only for 1 dose. No current facility-administered medications for this visit. Objective BP 130/78 Pulse (!) 56 Resp 16 Wt 84.8 kg (186 lb 15.2 oz) SpO2 98% BMI 27.21 kg/m Physical Exam Constitutional: General: He is not in acute distress. Appearance: He is not ill-appearing. Cardiovascular: Rate and Rhythm: Regular rhythm. Bradycardia present. Pulses: Normal pulses. Heart sounds: S1 normal and S2 normal. No murmur heard. Pulmonary: Breath sounds: Normal breath sounds. No wheezing or rales. Abdominal: Tenderness: There is no abdominal tenderness. Musculoskeletal: Right lower leg: No edema. Left lower leg: No edema. Neurological: Mental Status: He is alert. EKG RESULTS: sinus bradycardia and increased R/S ratio V1. Early transition in chest leads. Abnormal EKG. Last EKG normal, but from 2009. Assessment and Plan 1. REEDER (dyspnea on exertion) - ICD9: 786.09, ICD10: R06.09 (primary diagnosis) Shared medical decision making was done. We agreed to stress testing. Further recommendation will depend on result. - COMPLETE BLOOD COUNT - BASIC METABOLIC PANEL - STRESS ECHO TREADMILL - PERFLUTREN LIPID MICROSPHERES 1.1 MG/ML INJECTION IN NS 10 ML - SODIUM CHLORIDE 0.9 % (FLUSH) INJECTION SYRINGE 2. Mixed hyperlipidemia - ICD9: 272.2, ICD10: E78.2 - Controlled - Continue current medications - Counseled on healthy diet and regular exercise - ATORVASTATIN 20 MG TABLET - COMPREHENSIVE METABOLIC PANEL - LIPID PANEL, FASTING 3. Essential hypertension - ICD9: 401.9, ICD10: I10 - Controlled - Continue current medications - LISINOPRIL 5 MG TABLET 4. Gastroesophageal reflux disease with esophagitis without hemorrhage - ICD9: 530.81, 530.10, ICD10: K21.00 - Controlled. Continue PPI. - PANTOPRAZOLE 40 MG TABLET,DELAYED RELEASE 5. Essential tremor - ICD9: 333.1, ICD10: G25.0 - Controlled. Continue medication. - PROPRANOLOL 10 MG TABLET 6. Special screening for malignant neoplasms, colon - ICD9: V76.51, ICD10: Z12.11 - COLONOSCOPY SCREENING - PEG 3350 240 GRAM-ELECTROLYTES 22.72 GRAM-6.72 G-5.84 G POWDR FOR BONNIE Mcintyre MD TR OPEN ACCESS QUESTIONNAIRE 1. Are you currently having any new or unusual stomach/gastrointestinal issues at this time such as constipation, diarrhea, abdominal pain, rectal bleeding etc?No 2. Do you have any difficulty swallowing? No 3. Do you have any implanted devices such as a defibrillator, pacemaker, cardiac stents or deep brain stimulator? No 4. Do you take any Blood thinners such as Coumadin, Plavix, Xarelto, Eliquis, Brilinta or any other blood thinner? No 5. Do you have any new or past cardiac (heart) or pulmonary (lung) issues? No 6. Do you currently use any oxygen? No 7. Have you been hospitalized in the past 6 weeks? No 8. Have you had difficulty with anesthesia previously re: Difficult intubation? No Other difficulty or allergic reaction to anesthesia other than post op N/V? No 9. Are you on dialysis? No 10. Do you have any bleeding disorders such as hemophilia or Factor 5? No 11. Are you an Insulin Dependent Diabetic? No IF ANY OF THE TOP ELEVEN QUESTIONS ARE ANSWERED YES PLEASE SCHEDULE THE PATIENT FOR A CONSULT. advised 12. Is the patient's BMI 40 or greater? No:There is no height or weight on file to calculate BMI.. 13. Do you take any narcotics or anti-Anxiety medications? No 14. Do you use any illegal or recreational drugs including marijuana? No 15. Any alcohol use: No. 16. Have you been diagnosed with chronic liver disease such as hepatitis or cirrhosis? No 17. Do you have a seizure disorder? No 18. Do you have ulcerative colitis or Crohn's disease? No 19. Are you or could you be ? No 20. Any other important health information we should be made aware of prior to your colonoscopy? No To be completed by LIP: Did patient have MAC anesthesia with a previous endoscopy procedure? No Patient appropriate for Open Access Colonoscopy: Yes: appropriate for Open Access Procedure Checklist: Prior to closing the encounter: Complete questionnaire: Yes Confirm Prep order has been Ordered/Pended: Yes. Patient's procedure could be delayed if not given the script for the prep. Please ensure the prep is escripted to pharmacy or printed. Instructions for the prep will print upon filing or pending this smartset. Please send all open access questionnaires to [facility] Pool #[id number] documented in this encounter 12-13-2024 Note HNO ID: [id number] Author: JOANN RUTLEDGE LPN Service: ? Author Type: LICENSED NURSE Type: Progress Notes Filed: 12/13/2024 10:59 Note Text: [facility] OPEN ACCESS QUESTIONNAIRE 1. Are you currently having any new or unusual stomach/gastrointestinal issues at this time such as constipation, diarrhea, abdominal pain, rectal bleeding etc?No 2. Do you have any difficulty swallowing? No 3. Do you have any implanted devices such as a defibrillator, pacemaker, cardiac stents or deep brain stimulator? No 4. Do you take any Blood thinners such as Coumadin, Plavix, Xarelto, Eliquis, Brilinta or any other blood thinner? No 5. Do you have any new or past cardiac (heart) or pulmonary (lung) issues? No 6. Do you currently use any oxygen? No 7. Have you been hospitalized in the past 6 weeks? No 8. Have you had difficulty with anesthesia previously re: Difficult intubation? No Other difficulty or allergic reaction to anesthesia other than post op N/V? No 9. Are you on dialysis? No 10. Do you have any bleeding disorders such as hemophilia or Factor 5? No 11. Are you an Insulin Dependent Diabetic? No IF ANY OF THE TOP ELEVEN QUESTIONS ARE ANSWERED YES PLEASE SCHEDULE THE PATIENT FOR A CONSULT. advised 12. Is the patient's BMI 40 or greater? No:There is no height or weight on file to calculate BMI.. 13. Do you take any narcotics or anti-Anxiety medications? No 14. Do you use any illegal or recreational drugs including marijuana? No 15. Any alcohol use: No. 16. Have you been diagnosed with chronic liver disease such as hepatitis or cirrhosis? No 17. Do you have a seizure disorder? No 18. Do you have ulcerative colitis or Crohn's disease? No 19. Are you or could you be ? No 20. Any other important health information we should be made aware of prior to your colonoscopy? No To be completed by LIP: Did patient have MAC anesthesia with a previous endoscopy procedure? No Patient appropriate for Open Access Colonoscopy: Yes: appropriate for Open Access Procedure Checklist: Prior to closing the encounter: Complete questionnaire: Yes Confirm Prep order has been Ordered/Pended: Yes. Patient's procedure could be delayed if not given the script for the prep. Please ensure the prep is escripted to pharmacy or printed. Instructions for the prep will print upon filing or pending this smartset. Please send all open access questionnaires to [facility] Pool #[id number] [facility] 05-24-2024 Instructions Anna Cruz, BARAK.[employer] - 05/24/2024 10:13 AM EST Screening schedule The following prevention plan is recommended: Depression Screening Never done Anxiety Screening Never done BP Controlled (<130/80) Never done DTaP,Tdap,Td Vaccine(1 - Tdap) due on 01/10/2012 Advance Directive Discussion due on 06/15/2023 Influenza Vaccine(1) due on 02/14/2024 WHAT YOU CAN DO TO PREVENT FALLS Many falls can be prevented. By making some changes, you can lower your chances of falling. Four things YOU can do to prevent falls for you* and your caregiver 1. Begin a regular exercise program Exercise is one of the most important ways to lower your chances of falling. It makes you stronger and helps you feel better. Exercises that improve balance and coordination (like Andrew Chi) are the most helpful. Lack of exercise leads to weakness and increases your chances of falling. Ask your doctor or health care provider about the best type of exercise program for you. 2. Have your health care provider review your medicines Have your doctor or pharmacist review all the medicines you take, even dzae-hev-ikpgcth medicines. As you get older, the way medicines work in your body can change. Some medicines, or combinations of medicines, can make you sleepy or dizzy and can cause you to fall. 3. Have your vision checked Have your eyes checked by an eye doctor at least once a year. You may be wearing the wrong glasses or have a condition like glaucoma or cataracts that limits your vision. Poor vision can increase your chances of falling. 4. Make your home safer About half of all falls happen at home. To make your home safer: Remove things you can trip over (like papers, books, clothes, and shoes) from stairs and places where you walk. Remove small throw rugs or use double-sided tape to keep the rugs from slipping. Keep items you use often in cabinets you can reach easily without using a step stool. Have grab bars put in next to your toilet and in the tub or shower. Use non-slip mats in the bathtub and on shower floors. Improve the lighting in your home. As you get older, you need brighter lights to see well. Hang light-weight curtains or shades to reduce glare. Have handrails and lights put in on all staircases. Wear shoes both inside and outside the house. Avoid going barefoot or wearing slippers. For more information, contact: Centers for Disease Control and Prevention www.cdc.gov/injury * This information may not apply if you have certain medical conditions. documented in this encounter 05-24-2024 Note HNO ID: [id number] Author: ANNA CRUZ APRN.CHRISTI Service: ? Author Type: Nurse Practitioner Type: Progress Notes Filed: 05/24/2024 14:34 Note Text: Aiden Estrada is a 68 year old male here for a Medicare wellness visit. Medicare Health Risk Assessment General Health Very good Exercise: Minutes/Day 0 min Exercise: Days/Week On average, how many days per week do you engage in moderate to strenuous exercise (like a brisk walk)?: 0 days (stays active doing yard work such as chopping wood) Alcohol: Daily Use Never Alcohol: Drinks/Day Patient does not drink Alcohol: 6 or more drinks Never Feel off balance No Concerns: Teeth/Dentures No Concerns: Sexual function No Troubled by feelings Frequency: Eating healthy diet Nearly every day ADLs requiring help None of the above Safety precautions in home/vehicle Yes Smoke, vape, chews tobacco No Difficulty hearing Yes Difficulty seeing No Current Providers Specialists: I have reviewed specialist-related care of the patient in the medical record. Current care team: Patient Care Team: Prashanth Mcintyre MD as PCP - General Anna Cruz APRN.[employer] as Clarification Operator (Internal Medicine) Outside specialists seen: ct scan special procedures technologist-Silvia HIDALGO Medical/Family history review Reviewed and updated problem list, medical/surgical/family/social history, medications, and allergies. Opioid use review Opioid Medications (last 90 days) No data to display Depression Screening DEPRESSION SCREENING Ordered at: 05/24/24 1013 Based on score and interview, patient is: Not at risk for depression Screening tool discussed with patient, and I recommend: No further intervention at this time PHQ-2 Score: 0 ANXIETY SCREENING Ordered at: 05/24/24 1013 Based on score and interview, patient is: Not at risk for anxiety Screening tool discussed with patient, and I recommend: No further intervention at this time SHERIDAN-2 Score: 0 Cognitive screening Mini Cog Score: 5 Cognitive screening reviewed and No further action needed (score 3-5). Functional Observation Was the patient's Timed Up AND Go test unsteady or >= 12 seconds? No Advance Care Planning Patient was not able to provide a surrogate decision maker or written advance directives Measurements BP 124/80 Pulse 62 Ht 176.5 cm (5' 9.5) Wt 84.5 kg (186 lb 4.6 oz) SpO2 98% BMI 27.12 kg/m? Vision Screening: Follows with optometry/ophthalmology Assessment/Plan Medicare annual wellness visit, subsequent (Z00.00) - Counseled on healthy diet and regular exercise - Fall avoidance information provided - Personalized prevention plan provided Additional Concerns The following concerns were also discussed with the patient: HTN-Medication changes:No Taking all medications as prescribed: Yes Side effects: No Home BP's: No Denies: headache, chest pain, palpitations, dyspnea, and peripheral edema. Last 3 Encounter BP Readings: Date: BP: 05/24/2024 124/80 12/07/2023 122/72 05/22/2023 124/78 GERD- Symptoms controlled with Protonix. Denies heartburn/reflux, dysphagia, bloating, abdominal pain, black/bloody stools, vomiting, decreased appetite. BPH: denies LUTS Essential tremor: no worsening of tremors PHYSICAL EXAM BP 124/80 Pulse 62 Ht 176.5 cm (5' 9.5) Wt 84.5 kg (186 lb 4.6 oz) SpO2 98% BMI 27.12 kg/m? GENERAL: well appearing, alert, in no acute distress CARDIOVASCULAR: regular rate and rhythm. No murmur, rubs or gallops. PULMONARY: clear to auscultation, no wheezing, rhonchi, or crackles ASSESSMENT/PLAN: 1. Medicare annual wellness visit, subsequent - ICD9: V70.0, ICD10: Z00.00 (primary diagnosis) See medicare wellness plan 2. Essential hypertension - ICD9: 401.9, ICD10: I10 - Controlled - Continue current medications - Recommend home blood pressure monitoring, to bring results to next visit - Encouraged sodium restriction, DASH or Mediterranean diet 3. Gastroesophageal reflux disease with esophagitis without hemorrhage - ICD9: 530.81, 530.10, ICD10: K21.00 Stable on Protonix 4. Mixed hyperlipidemia - ICD9: 272.2, ICD10: E78.2 - Controlled - Continue current medications 5. Impaired fasting glucose - ICD9: 790.21, ICD10: R73.01 Stable 6. BPH with obstruction/lower urinary tract symptoms - ICD9: 600.01, 599.69, ICD10: N40.1, N13.8 Stable 7. Essential tremor - ICD9: 333.1, ICD10: G25.0 Stable 8. Screening for depression - ICD9: V79.0, ICD10: Z13.31 - DEPRESSION SCREENING 9. Encounter for screening examination for other mental health and behavioral disorders - ICD9: V79.8, ICD10: Z13.39 - ANXIETY SCREENING 10. Encounter for immunization - ICD9: V03.89, ICD10: Z23 - INFLUENZA VACCINE, PRSV FREE, AGE 65+ YR, HIGH DOSE, TRIVALENT (FLUZONE HIGH-DOSE) Anna Cruz APRN.CHRISTI [facility] 05-24-2024 History of Present illness Narrative Images from the original note were not included. Aiden Estrada is a 68 year old male here for a Medicare wellness visit. Medicare Health Risk Assessment General Health Very good Exercise: Minutes/Day 0 min Exercise: Days/Week On average, how many days per week do you engage in moderate to strenuous exercise (like a brisk walk)?: 0 days (stays active doing yard work such as chopping wood) Alcohol: Daily Use Never Alcohol: Drinks/Day Patient does not drink Alcohol: 6 or more drinks Never Feel off balance No Concerns: Teeth/Dentures No Concerns: Sexual function No Troubled by feelings Frequency: Eating healthy diet Nearly every day ADLs requiring help None of the above Safety precautions in home/vehicle Yes Smoke, vape, chews tobacco No Difficulty hearing Yes Difficulty seeing No Current Providers Specialists: I have reviewed specialist-related care of the patient in the medical record. Current care team: Patient Care Team: Prashanth Mcintyre MD as PCP - Anna Mayo APRN.CHRISTI as Clarification Operator (Internal Medicine) Outside specialists seen: ct scan special procedures technologist-Silvia HIDALGO Medical/Family history review Reviewed and updated problem list, medical/surgical/family/social history, medications, and allergies. Opioid use review Opioid Medications (last 90 days) No data to display Depression Screening DEPRESSION SCREENING Ordered at: 05/24/24 1013 Based on score and interview, patient is: Not at risk for depression Screening tool discussed with patient, and I recommend: No further intervention at this time PHQ-2 Score: 0 ANXIETY SCREENING Ordered at: 05/24/24 1013 Based on score and interview, patient is: Not at risk for anxiety Screening tool discussed with patient, and I recommend: No further intervention at this time SHERIDAN-2 Score: 0 Cognitive screening Mini Cog Score: 5 Cognitive screening reviewed and No further action needed (score 3-5). Functional Observation Was the patient's Timed Up & Go test unsteady or >= 12 seconds? No Advance Care Planning Patient was not able to provide a surrogate decision maker or written advance directives Measurements BP 124/80 Pulse 62 Ht 176.5 cm (5' 9.5) Wt 84.5 kg (186 lb 4.6 oz) SpO2 98% BMI 27.12 kg/m Vision Screening: Follows with optometry/ophthalmology Assessment/Plan Medicare annual wellness visit, subsequent () - Counseled on healthy diet and regular exercise - Fall avoidance information provided - Personalized prevention plan provided Additional Concerns The following concerns were also discussed with the patient: HTN-Medication changes:No Taking all medications as prescribed: Yes Side effects: No Home BP's: No Denies: headache, chest pain, palpitations, dyspnea, and peripheral edema. Last 3 Encounter BP Readings: Date: BP: 05/24/2024 124/80 12/07/2023 122/72 05/22/2023 124/78 GERD- Symptoms controlled with Protonix. Denies heartburn/reflux, dysphagia, bloating, abdominal pain, black/bloody stools, vomiting, decreased appetite. BPH: denies LUTS Essential tremor: no worsening of tremors PHYSICAL EXAM BP 124/80 Pulse 62 Ht 176.5 cm (5' 9.5) Wt 84.5 kg (186 lb 4.6 oz) SpO2 98% BMI 27.12 kg/m GENERAL: well appearing, alert, in no acute distress CARDIOVASCULAR: regular rate and rhythm. No murmur, rubs or gallops. PULMONARY: clear to auscultation, no wheezing, rhonchi, or crackles ASSESSMENT/PLAN: 1. Medicare annual wellness visit, subsequent - ICD9: V70.0, ICD10: Z00.00 (primary diagnosis) See medicare wellness plan 2. Essential hypertension - ICD9: 401.9, ICD10: I10 - Controlled - Continue current medications - Recommend home blood pressure monitoring, to bring results to next visit - Encouraged sodium restriction, DASH or Mediterranean diet 3. Gastroesophageal reflux disease with esophagitis without hemorrhage - ICD9: 530.81, 530.10, ICD10: K21.00 Stable on Protonix 4. Mixed hyperlipidemia - ICD9: 272.2, ICD10: E78.2 - Controlled - Continue current medications 5. Impaired fasting glucose - ICD9: 790.21, ICD10: R73.01 Stable 6. BPH with obstruction/lower urinary tract symptoms - ICD9: 600.01, 599.69, ICD10: N40.1, N13.8 Stable 7. Essential tremor - ICD9: 333.1, ICD10: G25.0 Stable 8. Screening for depression - ICD9: V79.0, ICD10: Z13.31 - DEPRESSION SCREENING 9. Encounter for screening examination for other mental health and behavioral disorders - ICD9: V79.8, ICD10: Z13.39 - ANXIETY SCREENING 10. Encounter for immunization - ICD9: V03.89, ICD10: Z23 - INFLUENZA VACCINE, PRSV FREE, AGE 65+ YR, HIGH DOSE, TRIVALENT (FLUZONE HIGH-DOSE) Anna Cruz APRN.[employer] documented in this encounter 12-07-2023 History of Present illness Narrative This note was created using [email or web address]. Subjective Patient presents with: [facility] F/U [place] Naomie Estrada is a 68 year old male was admitted at [facility] in [place] 11/19-11/22/23 for nausea, vomiting, diarrhea, SOO, hypotension. CT scan was positive for colitis. He was treated with IV fluids, and IV antibiotics. He was discharged on Cipro and Flagyl for 9 days. No follow up tests were recommended. His symptoms resolved. Review of Systems Constitutional: Negative for appetite change, fatigue, fever and unexpected weight change. Respiratory: Negative for cough and shortness of breath. Cardiovascular: Negative for chest pain, palpitations and leg swelling. Gastrointestinal: Negative for abdominal pain, blood in stool, constipation, diarrhea, nausea and vomiting. Genitourinary: Negative for difficulty urinating. ACTIVE PROBLEM LIST Essential Hypertension Mixed Hyperlipidemia Benign Neoplasm of Colon Essential Tremor Osteopenia Bph With Obstruction/Lower Urinary Tract Symptoms Esophageal Dysphagia Gastroesophageal Reflux Disease With Esophagitis Without Hemorrhage Impaired Fasting Glucose Social History Tobacco Use Smoking status: Former Smokeless tobacco: Never Vaping Use Vaping Use: Never used Substance Use Topics Alcohol use: No Drug use: No Current Outpatient Medications Medication Sig ciprofloxacin HCl (CIPRO) 500 mg tablet Take 500 mg by mouth two times a day. atorvastatin (LIPITOR) 20 mg tablet Take 1 tablet by mouth daily at bedtime. For cholesterol. lisinopril (ZESTRIL) 5 mg tablet Take 1 tablet by mouth once daily. pantoprazole DR (PROTONIX) 40 mg tablet Take 1 tablet by mouth twice daily. Take on empty stomach, 1/2 hr before meal. propranolol (INDERAL) 10 mg tablet Take 1 tablet by mouth twice daily. Rymfwrpwvgfhp-Aqlkiowv-Yplovj (CENTRUM SILVER) tab Take 1 tablet by mouth once daily. [place]-3 Fatty Acids-Vitamin E (FISH OIL) 1,000 mg cap Take 1 capsule by mouth once daily. Lutein 20 mg cap Take 1 capsule by mouth once daily. No current facility-administered medications for this visit. Objective BP 122/72 (BP Site: Left Arm, BP Position: Sitting, BP Cuff Size: Large Adult) Pulse 72 Temp 36.8 C (98.2 F) (Temporal) Resp 16 Wt 83.9 kg (185 lb) BMI 26.54 kg/m Physical Exam Constitutional: Appearance: Normal appearance. Cardiovascular: Rate and Rhythm: Normal rate. Heart sounds: No murmur heard. No gallop. Pulmonary: Breath sounds: Normal breath sounds. Abdominal: General: Bowel sounds are normal. Palpations: Abdomen is soft. There is no mass. Tenderness: There is no abdominal tenderness. Musculoskeletal: Right lower leg: No edema. Left lower leg: No edema. Neurological: General: No focal deficit present. Mental Status: He is alert. Motor: No tremor. Assessment and Plan 1. Colitis - ICD9: 558.9, ICD10: K52.9 (primary diagnosis) Resolved. 2. Mixed hyperlipidemia - ICD9: 272.2, ICD10: E78.2 - Controlled - Continue current medications - Counseled on healthy diet and regular exercise - ATORVASTATIN 20 MG TABLET - COMPREHENSIVE METABOLIC PANEL - LIPID PANEL BASIC 3. Essential hypertension - ICD9: 401.9, ICD10: I10 - Controlled - Continue current medications - LISINOPRIL 5 MG TABLET - PROPRANOLOL 10 MG TABLET - COMPLETE BLOOD COUNT 4. Gastroesophageal reflux disease with esophagitis without hemorrhage - ICD9: 530.81, 530.10, ICD10: K21.00 - controlled. - PANTOPRAZOLE 40 MG TABLET,DELAYED RELEASE 5. Esophageal dysphagia - ICD9: 787.29, ICD10: R13.19 - Controlled. - PANTOPRAZOLE 40 MG TABLET,DELAYED RELEASE 6. Essential tremor - ICD9: 333.1, ICD10: G25.0 - Controlled. - PROPRANOLOL 10 MG TABLET Prashanth Mcintyre MD documented in this encounter 11-22-2023 Note HMS DISCHARGE Aiden aCo Admitted: 11/20/2023 Discharge Date: 11/22/23 PCP Handoff Recommended Outpatient Testing None Results Pending At Discharge None Clinical Summary Aiden Estrada is a 68 y.o. male patient of Prashanth Mcintyre MD with history of hypertension hyperlipidemia with previous history peptic ulcer disease status post EGD and was placed on pantoprazole for 2 months in 2022, currently on statin therapy propranolol, lisinopril, is here due to recurrent nausea and vomiting with diarrhea associated no other discomfort noticed mild leukocytosis at 11,000 and hypotensive systolic blood pressure in the 90s on arrival to the emergency department, CAT scan findings concerning of colitis given Flagyl and was referred to us for further stability, and management Nausea with vomiting and diarrhea, improved Colitis Concern of gastroenteritis with mild leukocytosis at 11,000, CT abdomen showed Colitis involving the ascending and proximal transverse colon, likely infectious or inflammatory. For stool cultures and C. difficile testing - positive for Campylobacter On empiric antibiotics IV ciprofloxacin and IV Flagyl now; transition to oral course at [place] S/p IV fluids Acute kidney injury, resolved With rising creatinine up to 1.1 on arrival to emergency department prerenal hemodynamic related we will follow the trend of kidney function and do urinalysis Repeat labs show resolution of SOO Hypotension, resolved Hypovolemic given fluid bolus in the emergency department is with good responses, will hold blood pressure meds and follow the trend of blood pressure Hyperlipidemia On statin therapy Discharge Medications Discharge Medications New Medications Details ciprofloxacin HCl 500 MG tablet Commonly known as: CIPRO Take 1 (one) tablet (500 mg total) by mouth 2 (two) times a day for 9 days . Quantity: 18 tablet metroNIDAZOLE 500 MG tablet Commonly known as: FLAGYL Take 1 (one) tablet (500 mg total) by mouth 3 (three) times a day with meals for 9 days . Quantity: 27 tablet Medications To Continue Details atorvastatin 20 MG tablet Commonly known as: LIPITOR Take 1 (one) tablet (20 mg total) by mouth every night at bedtime . lisinopriL 5 MG tablet Commonly known as: PRINIVIL,ZESTRIL Take by mouth daily . Physician(s) Follow Up: Prashanth Mcintyre MD [address] [address] Schedule an appointment as soon as possible for a visit in 1 week(s) Condition at Discharge: Stable Disposition: Home On day of discharge, I performed a final bedside evaluation including a physical exam. I reviewed discharge recommendations with the patient in person. Patient instructions, including activity, were given to the patient/family at discharge. Time spent on discharge: < 30 minutes Completed by: Liliane Leon PA-C on 11/22/23, 9:40 AM AUTHENTICATED BY LILIANE LEON, ON 11/22/2023 09:42:12 [facility] 11-22-2023 Hospital course Narrative [facility] DISCHARGE SUMMARY Aiden Estrada Admitted: 11/20/2023 Discharge Date: 11/22/23 PCP Handoff Recommended Outpatient Testing None Results Pending At Discharge None Clinical Summary Aiden Estrada is a 68 y.o. male patient of Prashanth Mcintyre MD with history of hypertension hyperlipidemia with previous history peptic ulcer disease status post EGD and was placed on pantoprazole for 2 months in 2022, currently on statin therapy propranolol, lisinopril, is here due to recurrent nausea and vomiting with diarrhea associated no other discomfort noticed mild leukocytosis at 11,000 and hypotensive systolic blood pressure in the 90s on arrival to the emergency department, CAT scan findings concerning of colitis given Flagyl and was referred to us for further stability, and management Nausea with vomiting and diarrhea, improved Colitis Concern of gastroenteritis with mild leukocytosis at 11,000, CT abdomen showed Colitis involving the ascending and proximal transverse colon, likely infectious or inflammatory. For stool cultures and C. difficile testing - positive for Campylobacter On empiric antibiotics IV ciprofloxacin and IV Flagyl now; transition to oral course at [place] S/p IV fluids Acute kidney injury, resolved With rising creatinine up to 1.1 on arrival to emergency department prerenal hemodynamic related we will follow the trend of kidney function and do urinalysis Repeat labs show resolution of SOO Hypotension, resolved Hypovolemic given fluid bolus in the emergency department is with good responses, will hold blood pressure meds and follow the trend of blood pressure Hyperlipidemia On statin therapy Discharge Medications Discharge Medications New Medications Details ciprofloxacin HCl 500 MG tablet Commonly known as: CIPRO Take 1 (one) tablet (500 mg total) by mouth 2 (two) times a day for 9 days . Quantity: 18 tablet metroNIDAZOLE 500 MG tablet Commonly known as: FLAGYL Take 1 (one) tablet (500 mg total) by mouth 3 (three) times a day with meals for 9 days . Quantity: 27 tablet Medications To Continue Details atorvastatin 20 MG tablet Commonly known as: LIPITOR Take 1 (one) tablet (20 mg total) by mouth every night at bedtime . lisinopriL 5 MG tablet Commonly known as: PRINIVIL,ZESTRIL Take by mouth daily . Physician(s) Follow Up: Prashanth Mcintyre MD [address] [address] Schedule an appointment as soon as possible for a visit in 1 week(s) Condition at Discharge: Stable Disposition: Home On day of discharge, I performed a final bedside evaluation including a physical exam. I reviewed discharge recommendations with the patient in person. Patient instructions, including activity, were given to the patient/family at discharge. Time spent on discharge: < 30 minutes Completed by: Liliane Leon PA-C on 11/22/23, 9:40 AM documented in this encounter [facility] 11-22-2023 Note Formatting of this n ote might be different from the original. Problem: Actual or potential alteration in health Goal: Absence of healthcare acquired conditions Outcome: Partially Met Goal: Knowledge of Interdisciplinary Plan of Care Outcome: Partially Met Goal: Knowledge of Enviroment Outcome: Partially Met [facility] 11-22-2023 Miscellaneous Notes Problem: Actual or potential alteration in health Goal: Absence of healthcare acquired conditions Outcome: Partially Met Goal: Knowledge of Interdisciplinary Plan of Care Outcome: Partially Met Goal: Knowledge of Enviroment Outcome: Partially Met Problem: Actual or potential alteration in health Goal: Absence of healthcare acquired conditions Outcome: Partially Met Goal: Knowledge of Interdisciplinary Plan of Care Outcome: Partially Met Goal: Knowledge of Enviroment Outcome: Partially Met documented in this encounter [facility] 11-21-2023 Note [facility] PROGRESS NOTE Assessment and Plan Aiden Estrada is a 68 y.o. male patient of Prashanth Mcintyre MD with history of hypertension hyperlipidemia with previous history peptic ulcer disease status post EGD and was placed on pantoprazole for 2 months in 2022, currently on statin therapy propranolol, lisinopril, is here due to recurrent nausea and vomiting with diarrhea associated no other discomfort noticed mild leukocytosis at 11,000 and hypotensive systolic blood pressure in the 90s on arrival to the emergency department, CAT scan findings concerning of colitis given Flagyl and was referred to us for further stability, and management Nausea with vomiting and diarrhea Colitis Concern of gastroenteritis with mild leukocytosis at 11,000, CT abdomen showed Colitis involving the ascending and proximal transverse colon, likely infectious or inflammatory. For stool cultures and C. difficile testing On empiric antibiotics IV ciprofloxacin and IV Flagyl now IV fluids Acute kidney injury, resolved With rising creatinine up to 1.1 on arrival to emergency department prerenal hemodynamic related we will follow the trend of kidney function and do urinalysis Repeat labs show resolution of SOO Continue IV fluids given ongoing diarrhea Urine culture is pending Hypotension Hypovolemic given fluid bolus in the emergency department is with good responses, will hold blood pressure meds and follow the trend of blood pressure Hyperlipidemia On statin therapy Code Status: Full Code - Unverified Disposition Medically stable for discharge date: TBD Patient requires continued hospitalization due to: Diarrhea, IV fluids, IV antibiotics Discharge location: Home Quality Measures DVT prophylaxis: Heparin Alvarado catheter: Absent Subjective No acute events noted overnight. Afebrile. Saturating well on room air. Still having frequent loose watery bowel movements. No definite abdominal pain. No nausea or vomiting this AM. Review of Systems All relevant systems have been reviewed and are negative except as noted in HPI or below Objective BP 120/74 Pulse 70 Temp 99.1 degrees F (37.3 degrees C) (Oral) Resp 16 Ht 5' 11 Wt 83.9 kg (184 lb 15.5 oz) SpO2 95% BMI 25.80 kg/m Physical Examination General Appearance: alert; well appearing; in no acute distress HEENT: Head- normocephalic; Eyes- EOMI, sclera anicteric; Ears- hearing intact; Nose- no nasal discharge; Throat- mucous membranes moist Cardiovascular: regular rate and rhythm Respiratory: respirations are unlabored, on room air Abdomen: soft, non-tender, non-distended Neurological: oriented x 3; normal speech; no focal findings or movement disorder noted Musculoskeletal: no significant deformity or tenderness to palpation Skin: normal coloration; no obvious rashes, lesions or skin breakdown Psych: normal mood and affect Results/Medications Reviewed 11/21/2023 10:18 AM Laboratory, Microbiology, Radiology, Cardiology, Medications, and Transcriptions AUTHENTICATED BY LILIANE LEON, ON 11/21/2023 10:23:33 [facility] 11-21-2023 History of Present illness Narrative [facility] PROGRESS NOTE Assessment and Plan Aiden Estrada is a 68 y.o. male patient of Prashanth Mcintyre MD with history of hypertension hyperlipidemia with previous history peptic ulcer disease status post EGD and was placed on pantoprazole for 2 months in 2022, currently on statin therapy propranolol, lisinopril, is here due to recurrent nausea and vomiting with diarrhea associated no other discomfort noticed mild leukocytosis at 11,000 and hypotensive systolic blood pressure in the 90s on arrival to the emergency department, CAT scan findings concerning of colitis given Flagyl and was referred to us for further stability, and management Nausea with vomiting and diarrhea Colitis Concern of gastroenteritis with mild leukocytosis at 11,000, CT abdomen showed Colitis involving the ascending and proximal transverse colon, likely infectious or inflammatory. For stool cultures and C. difficile testing On empiric antibiotics IV ciprofloxacin and IV Flagyl now IV fluids Acute kidney injury, resolved With rising creatinine up to 1.1 on arrival to emergency department prerenal hemodynamic related we will follow the trend of kidney function and do urinalysis Repeat labs show resolution of SOO Continue IV fluids given ongoing diarrhea Urine culture is pending Hypotension Hypovolemic given fluid bolus in the emergency department is with good responses, will hold blood pressure meds and follow the trend of blood pressure Hyperlipidemia On statin therapy Code Status: Full Code - Unverified Disposition Medically stable for discharge date: TBD Patient requires continued hospitalization due to: Diarrhea, IV fluids, IV antibiotics Discharge location: Home Quality Measures DVT prophylaxis: Heparin Alvarado catheter: Absent Subjective No acute events noted overnight. Afebrile. Saturating well on room air. Still having frequent loose watery bowel movements. No definite abdominal pain. No nausea or vomiting this AM. Review of Systems All relevant systems have been reviewed and are negative except as noted in HPI or below Objective BP 120/74 Pulse 70 Temp 99.1 F (37.3 C) (Oral) Resp 16 Ht 5' 11 Wt 83.9 kg (184 lb 15.5 oz) SpO2 95% BMI 25.80 kg/m Physical Examination General Appearance: alert; well appearing; in no acute distress HEENT: Head- normocephalic; Eyes- EOMI, sclera anicteric; Ears- hearing intact; Nose- no nasal discharge; Throat- mucous membranes moist Cardiovascular: regular rate and rhythm Respiratory: respirations are unlabored, on room air Abdomen: soft, non-tender, non-distended Neurological: oriented x 3; normal speech; no focal findings or movement disorder noted Musculoskeletal: no significant deformity or tenderness to palpation Skin: normal coloration; no obvious rashes, lesions or skin breakdown Psych: normal mood and affect Results/Medications Reviewed 11/21/2023 10:18 AM Laboratory, Microbiology, Radiology, Cardiology, Medications, and Transcriptions documented in this encounter [facility] 11-20-2023 History and physical note [facility] HISTORY AND PHYSICAL -- [facility] Patient Name: Aiden Estrada : 1955 MR #: [id number] Admit Date: 11/20/2023 Physicians: Prashanth Mcintyre MD (Family); Niecy Adam,* (Referring) Aiden Estrada is a 68 y.o. male patient of Prashanth Mcintyre MD with history of hypertension hyperlipidemia with previous history peptic ulcer disease status post EGD and was placed on pantoprazole for 2 months in 2022, currently on statin therapy propranolol, lisinopril, is here due to recurrent nausea and vomiting with diarrhea associated no other discomfort noticed mild leukocytosis at 11,000 and hypotensive systolic blood pressure in the 90s on arrival to the emergency department, CAT scan findings concerning of colitis given Flagyl and was referred to us for further stability, and management Nausea with vomiting and diarrhea Concern of gastroenteritis with mild leukocytosis at 11,000, CT abdomen showed Colitis involving the ascending and proximal transverse colon, likely infectious or inflammatory. For stool cultures and C. difficile testing On empiric antibiotics IV ciprofloxacin and IV Flagyl now IV fluids Acute kidney injury With rising creatinine up to 1.1 on arrival to emergency department prerenal hemodynamic related we will follow the trend of kidney function and do urinalysis Hypotension Hypovolemic given fluid bolus in the emergency department is with good responses, will hold blood pressure meds and follow the trend of blood pressure and check orthostatic vitals Hyperlipidemia On statin therapy Residence prior to admission: house or apartment Was patient transferred from outlying hospital or ED no Quality Measures DVT Prophylaxis: heparin subcutaneous Alvarado Catheter: absent Medication Reconciliation: Verified Admitted with these risk variables:Acute Kidney Injury. Please see assessment and plan for further details. Estimated Date of Discharge greater than 2 midnights Code Status Full Code; code status verified on 11/20/2023 Chief Complaint nausea and vomiting with diarrhea History of Present Illness Aiden Estrada is a 68 y.o. male patient of Prashanth Mcintyre MD with history of hypertension hyperlipidemia with previous history peptic ulcer disease status post EGD and was placed on pantoprazole for 2 months in 2022, currently on statin therapy propranolol, lisinopril, is here due to recurrent nausea and vomiting with diarrhea associated no other discomfort noticed mild leukocytosis at 11,000 and hypotensive systolic blood pressure in the 90s on arrival to the emergency department, CAT scan findings concerning of colitis given Flagyl and was referred to us for further stability, and management, 3 to 4 days has had anorexia nausea vomiting diarrhea he had some turkey a graduation democrat denies any recent travel or antibiotic use he did look in his barn for significant amount of hours in the heat. He denies any hematemesis medic easier melena. Denies history of diverticulitis there is just generalized cramping the pain does not localize anywhere. Denies history of bowel obstruction or any abdominal surgeries Past Medical History Past Medical History: Diagnosis Date Hyperlipidemia Hypertension Past Surgical History Past Surgical History: Procedure Laterality Date CT COLONOSCOPY 02/10/2020 CT COLONOSCOPY Family History History reviewed. No pertinent family history. Social History Social History Tobacco Use Smoking Status Never Smokeless Tobacco Never Social History Substance and Sexual Activity Alcohol Use Never Social History Substance and Sexual Activity Drug Use Never Allergy Information I have reviewed the patient's allergies. Patient has no known allergies. Home Medications Home medications were reviewed. Review Of Systems All relevant systems have been reviewed and are negative except as noted in HPI or below Physical Examination Resp 18 Ht 5' 11 Wt 83.9 kg (184 lb 15.5 oz) BMI 25.80 kg/m General Appearance: alert; acutely ill appearing; in no acute distress HEENT: Head- normocephalic; Eyes- EOMI, sclera anicteric; Throat- mucous membranes moist Cardiovascular: regular rate and rhythm; normal S1, S2; no murmurs, rubs, clicks or gallops; peripheral edema absent Respiratory: lungs clear to auscultation; without wheezes, rales or rhonchi; on room air Abdomen: soft, non-tender, non-distended Neurological: oriented x 3; normal speech; no focal findings or movement disorder noted Musculoskeletal: no significant deformity or tenderness to palpation Skin: normal coloration Psych: normal mood and affect [facility] 11-20-2023 Note HMS HISTORY AND PHYS [facility] -- [facility] Patient Name: Aiden Estrada : 1955 MR #: [id number] Admit Date: 11/20/2023 Physicians: Prashanth Mcintyre MD (Family); Niecy Adam,Shani (Referring) Aiden Estrada is a 68 y.o. male patient of Prashanth Mcintyre MD with history of hypertension hyperlipidemia with previous history peptic ulcer disease status post EGD and was placed on pantoprazole for 2 months in 2022, currently on statin therapy propranolol, lisinopril, is here due to recurrent nausea and vomiting with diarrhea associated no other discomfort noticed mild leukocytosis at 11,000 and hypotensive systolic blood pressure in the 90s on arrival to the emergency department, CAT scan findings concerning of colitis given Flagyl and was referred to us for further stability, and management Nausea with vomiting and diarrhea Concern of gastroenteritis with mild leukocytosis at 11,000, CT abdomen showed Colitis involving the ascending and proximal transverse colon, likely infectious or inflammatory. For stool cultures and C. difficile testing On empiric antibiotics IV ciprofloxacin and IV Flagyl now IV fluids Acute kidney injury With rising creatinine up to 1.1 on arrival to emergency department prerenal hemodynamic related we will follow the trend of kidney function and do urinalysis Hypotension Hypovolemic given fluid bolus in the emergency department is with good responses, will hold blood pressure meds and follow the trend of blood pressure and check orthostatic vitals Hyperlipidemia On statin therapy Residence prior to admission: house or apartment Was patient transferred from outlying hospital or ED no Quality Measures DVT Prophylaxis: heparin subcutaneous Alvarado Catheter: absent Medication Reconciliation: Verified Admitted with these risk variables:Acute Kidney Injury. Please see assessment and plan for further details. Estimated Date of Discharge greater than 2 midnights Code Status Full Code; code status verified on 11/20/2023 Chief Complaint nausea and vomiting with diarrhea History of Present Illness Aiden Estrada is a 68 y.o. male patient of Prashanth Mcintyre MD with history of hypertension hyperlipidemia with previous history peptic ulcer disease status post EGD and was placed on pantoprazole for 2 months in 2022, currently on statin therapy propranolol, lisinopril, is here due to recurrent nausea and vomiting with diarrhea associated no other discomfort noticed mild leukocytosis at 11,000 and hypotensive systolic blood pressure in the 90s on arrival to the emergency department, CAT scan findings concerning of colitis given Flagyl and was referred to us for further stability, and management, 3 to 4 days has had anorexia nausea vomiting diarrhea he had some turkey a graduation democrat denies any recent travel or antibiotic use he did look in his barn for significant amount of hours in the heat. He denies any hematemesis medic easier melena. Denies history of diverticulitis there is just generalized cramping the pain does not localize anywhere. Denies history of bowel obstruction or any abdominal surgeries Past Medical History Past Medical History: Diagnosis Date Hyperlipidemia Hypertension Past Surgical History Past Surgical History: Procedure Laterality Date CT COLONOSCOPY 02/10/2020 CT COLONOSCOPY Family History History reviewed. No pertinent family history. Social History Social History Tobacco Use Smoking Status Never Smokeless Tobacco Never Social History Substance and Sexual Activity Alcohol Use Never Social History Substance and Sexual Activity Drug Use Never Allergy Information I have reviewed the patient's allergies. Patient has no known allergies. Home Medications Home medications were reviewed. Review Of Systems All relevant systems have been reviewed and are negative except as noted in HPI or below Physical Examination Resp 18 Ht 5' 11 Wt 83.9 kg (184 lb 15.5 oz) BMI 25.80 kg/m General Appearance: alert; acutely ill appearing; in no acute distress HEENT: Head- normocephalic; Eyes- EOMI, sclera anicteric; Throat- mucous membranes moist Cardiovascular: regular rate and rhythm; normal S1, S2; no murmurs, rubs, clicks or gallops; peripheral edema absent Respiratory: lungs clear to auscultation; without wheezes, rales or rhonchi; on room air Abdomen: soft, non-tender, non-distended Neurological: oriented x 3; normal speech; no focal findings or movement disorder noted Musculoskeletal: no significant deformity or tenderness to palpation Skin: normal coloration Psych: normal mood and affect AUTHENTICATED BY AGUILA BARRON ON 11/20/2023 18:50:18 [facility] 11-20-2023 History and physical note [facility] HISTORY AND PHYSICAL -- [facility] Patient Name: Aiden Estrada : 1955 MR #: [id number] Admit Date: 11/20/2023 Physicians: Prashanth Mcintyre MD (Family); Niecy Adam,Shani (Referring) Aiden Estrada is a 68 y.o. male patient of Prashanth Mcintyre MD with history of hypertension hyperlipidemia with previous history peptic ulcer disease status post EGD and was placed on pantoprazole for 2 months in 2022, currently on statin therapy propranolol, lisinopril, is here due to recurrent nausea and vomiting with diarrhea associated no other discomfort noticed mild leukocytosis at 11,000 and hypotensive systolic blood pressure in the 90s on arrival to the emergency department, CAT scan findings concerning of colitis given Flagyl and was referred to us for further stability, and management Nausea with vomiting and diarrhea Concern of gastroenteritis with mild leukocytosis at 11,000, CT abdomen showed Colitis involving the ascending and proximal transverse colon, likely infectious or inflammatory. For stool cultures and C. difficile testing On empiric antibiotics IV ciprofloxacin and IV Flagyl now IV fluids Acute kidney injury With rising creatinine up to 1.1 on arrival to emergency department prerenal hemodynamic related we will follow the trend of kidney function and do urinalysis Hypotension Hypovolemic given fluid bolus in the emergency department is with good responses, will hold blood pressure meds and follow the trend of blood pressure and check orthostatic vitals Hyperlipidemia On statin therapy Residence prior to admission: house or apartment Was patient transferred from outlying hospital or ED no Quality Measures DVT Prophylaxis: heparin subcutaneous Alvarado Catheter: absent Medication Reconciliation: Verified Admitted with these risk variables:Acute Kidney Injury. Please see assessment and plan for further details. Estimated Date of Discharge greater than 2 midnights Code Status Full Code; code status verified on 11/20/2023 Chief Complaint nausea and vomiting with diarrhea History of Present Illness Aiden Estrada is a 68 y.o. male patient of Prashanth Mcintyre MD with history of hypertension hyperlipidemia with previous history peptic ulcer disease status post EGD and was placed on pantoprazole for 2 months in 2022, currently on statin therapy propranolol, lisinopril, is here due to recurrent nausea and vomiting with diarrhea associated no other discomfort noticed mild leukocytosis at 11,000 and hypotensive systolic blood pressure in the 90s on arrival to the emergency department, CAT scan findings concerning of colitis given Flagyl and was referred to us for further stability, and management, 3 to 4 days has had anorexia nausea vomiting diarrhea he had some turkey a graduation democrat denies any recent travel or antibiotic use he did look in his barn for significant amount of hours in the heat. He denies any hematemesis medic easier melena. Denies history of diverticulitis there is just generalized cramping the pain does not localize anywhere. Denies history of bowel obstruction or any abdominal surgeries Past Medical History Past Medical History: Diagnosis Date Hyperlipidemia Hypertension Past Surgical History Past Surgical History: Procedure Laterality Date CT COLONOSCOPY 02/10/2020 CT COLONOSCOPY Family History History reviewed. No pertinent family history. Social History Social History Tobacco Use Smoking Status Never Smokeless Tobacco Never Social History Substance and Sexual Activity Alcohol Use Never Social History Substance and Sexual Activity Drug Use Never Allergy Information I have reviewed the patient's allergies. Patient has no known allergies. Home Medications Home medications were reviewed. Review Of Systems All relevant systems have been reviewed and are negative except as noted in HPI or below Physical Examination Resp 18 Ht 5' 11 Wt 83.9 kg (184 lb 15.5 oz) BMI 25.80 kg/m General Appearance: alert; acutely ill appearing; in no acute distress HEENT: Head- normocephalic; Eyes- EOMI, sclera anicteric; Throat- mucous membranes moist Cardiovascular: regular rate and rhythm; normal S1, S2; no murmurs, rubs, clicks or gallops; peripheral edema absent Respiratory: lungs clear to auscultation; without wheezes, rales or rhonchi; on room air Abdomen: soft, non-tender, non-distended Neurological: oriented x 3; normal speech; no focal findings or movement disorder noted Musculoskeletal: no significant deformity or tenderness to palpation Skin: normal coloration Psych: normal mood and affect documented in this encounter [facility] 11-20-2023 Note Formatting of this n ote might be different from the original. Problem: Actual or potential alteration in health Goal: Absence of healthcare acquired conditions Outcome: Partially Met Goal: Knowledge of Interdisciplinary Plan of Care Outcome: Partially Met Goal: Knowledge of Enviroment Outcome: Partially Met [facility] 08-12-2023 History of Present illness Narrative POPULATION HEALTH NAVIGATION OUTREACH Action/I [facility] [employer] ANNUAL MEDICARE WELLNESS EXAM DUE last wv 05-22-23 Advance Directive Discussion due on 06/15/2023 Patient Identified by Name and : NO Outreach Outcome/Action Unable to reach patient: Left message Nanushka message sent Did you use a PCP flex slot to schedule this appointment? N/A Reason for Outreach Care Gap or Scheduling/Wellness visits Payer: Payor: [facility] MEDICARE / Plan: [facility] MEDICARE ADVANTAGE PPO / Product Type: PPO / Care Gap Reviewed:: Annual Wellness visit Reminder: Reminder note to check Health Maintenance for items below Health Maintenance items due: Advance Directive Discussion due on 06/15/2023 Depression Assessment due on 06/15/2023 Navigation Signature: Nelli Workman MA August 12, 2023 10:06 AM documented in this encounter 05-25-2023 Miscellaneous Notes TC to patient who verbalized understanding. Nothing further at this time. ARACELI Donis ----- Message from Anna Cruz APRN.[employer] sent at 05/25/2023 7:11 AM EST ----- Please let the patient know his cholesterol was at goal. PSA normal. HgbA1c 5.7, in the pre-diabetes range Anna Cruz APRN.[employer] documented in this encounter 05-22-2023 Instructions Anna Cruz APRN.[employer] - 05/22/2023 8:56 AM EST Screening schedule The following prevention plan is recommended: DTaP,Tdap,Td Vaccine(1 - Tdap) due on 01/10/2012 RSV Vaccine(1 - 1-dose 60+ series) Never done Covid-19 Vaccine( season) due on 02/13/2023 WHAT YOU CAN DO TO PREVENT FALLS Many falls can be prevented. By making some changes, you can lower your chances of falling. Four things YOU can do to prevent falls for you* and your caregiver 1. Begin a regular exercise program Exercise is one of the most important ways to lower your chances of falling. It makes you stronger and helps you feel better. Exercises that improve balance and coordination (like Andrew Chi) are the most helpful. Lack of exercise leads to weakness and increases your chances of falling. Ask your doctor or health care provider about the best type of exercise program for you. 2. Have your health care provider review your medicines Have your doctor or pharmacist review all the medicines you take, even [id number] medicines. As you get older, the way medicines work in your body can change. Some medicines, or combinations of medicines, can make you sleepy or dizzy and can cause you to fall. 3. Have your vision checked Have your eyes checked by an eye doctor at least once a year. You may be wearing the wrong glasses or have a condition like glaucoma or cataracts that limits your vision. Poor vision can increase your chances of falling. 4. Make your home safer About half of all falls happen at home. To make your home safer: Remove things you can trip over (like papers, books, clothes, and shoes) from stairs and places where you walk. Remove small throw rugs or use double-sided tape to keep the rugs from slipping. Keep items you use often in cabinets you can reach easily without using a step stool. Have grab bars put in next to your toilet and in the tub or shower. Use non-slip mats in the bathtub and on shower floors. Improve the lighting in your home. As you get older, you need brighter lights to see well. Hang light-weight curtains or shades to reduce glare. Have handrails and lights put in on all staircases. Wear shoes both inside and outside the house. Avoid going barefoot or wearing slippers. For more information, contact: Centers for Disease Control and Prevention www.cdc.gov/injury * This information may not apply if you have certain medical conditions. documented in this encounter 05-22-2023 History of Present illness Narrative Aiden Estrada is a 67 year old male here for a Medicare wellness visit. Medicare Health Risk Assessment General Health Very good Exercise: Minutes/Day No Exercise: Days/Week No Alcohol: Daily Use No Alcohol: Drinks/Day No Alcohol: 6 or more drinks No Feel off balance No Concerns: Teeth/Dentures No Concerns: Sexual function No Troubled by feelings No Frequency: Eating healthy diet Yes ADLs requiring help No Safety precautions in home/vehicle Yes Smoke, vape, chews tobacco No Difficulty hearing No Difficulty seeing No Current Providers Specialists: I have reviewed specialist-related care of the patient in the medical record. Current care team: Patient Care Team: Prashanth Mcintyre MD as PCP - General Outside specialists seen: Dr. Lewis-GI, ct scan special procedures technologist-Silvia HIDALGO Medical/Family history review Reviewed and updated problem list, medical/surgical/family/social history, medications, and allergies. Opioid use review Opioid Medications (last 90 days) Some values may be hidden. Unless noted otherwise, only the newest values recorded on each date are displayed. Opioid Medications No data to display. Depression screening Depression Screening PHQ-2 Score 11/18/2022 0 Depression screening tool completed and reviewed. Based on score and interview, patient is not at risk for depression. Screening tool discussed with patient, and I recommended no further intervention at this time. Cognitive screening Mini Cog Score: 5 Cognitive screening reviewed and no further action needed (score 3-5) Functional Observation Was the patient's timed Up & Go test unsteady or ? 12 seconds? No Advance Care Planning Patient did not wish or was not able to name a surrogate decision maker or provide an advance care plan Measurements BP 124/78 Pulse 60 Resp 14 Ht 5' 10 (1.78m) Wt 184 lb (83.5kg) SpO2 100% BMI 26.40 kg/(m^2). Additional screenings: No results found. Assessment/Plan Medicare annual wellness visit, subsequent (Z00.00) - Counseled on healthy diet and regular exercise - Fall avoidance information provided - Personalized prevention plan provided Anna Cruz APRN.CHRISTI documented in this encounter 11-18-2022 History of Present illness Narrative Ambulatory Ear Lavage Pre-treatment: Warm water Treatment: Left ear Equipment and Irrigation solution and Volume used: Single use syringe with single use irrigation tip Water Return flow appearance: Clear Patient tolerated procedure: yes This note was created using [email or web address]. Subjective Aiden Estrada is a 67 year old male. He felt well and hypertension, hyperlipidemia, tremor were stable. EGD was done by Dr. Lewis for dysphagia and findings were documented and pantoprazole BID x 2 months was recommended, then 40 mg daily. Review of Systems Constitutional: Negative for activity change and unexpected weight change. Respiratory: Negative for chest tightness and shortness of breath. Cardiovascular: Negative for chest pain, palpitations and leg swelling. Gastrointestinal: Negative for abdominal pain. Neurological: Negative. ACTIVE PROBLEM LIST Essential Hypertension Mixed Hyperlipidemia Benign Neoplasm of Colon Essential Tremor Osteopenia Bph With Obstruction/Lower Urinary Tract Symptoms Esophageal Dysphagia Current Outpatient Medications Medication Sig atorvastatin (LIPITOR) 20 mg tablet Take 1 tablet by mouth daily at bedtime. For cholesterol. propranolol (INDERAL) 10 mg tablet Take 1 tablet by mouth twice daily. lisinopril (ZESTRIL, PRINIVIL) 5 mg tablet Take 1 tablet by mouth once daily. Pzlndrgauaakm-Vlgjhrkv-Efyeui (CENTRUM SILVER) tab Take 1 tablet by mouth once daily. [place]-3 Fatty Acids-Vitamin E (FISH OIL) 1,000 mg cap Take 1 capsule by mouth once daily. Lutein 20 mg cap Take 1 capsule by mouth once daily. No current facility-administered medications for this visit. Objective BP 116/74 (BP Site: Left Arm, BP Position: Sitting, BP Cuff Size: Large Adult) Resp (!) 56 Wt 85.7 kg (189 lb) BMI 26.74 kg/m Physical Exam Constitutional: General: He is not in acute distress. HENT: Right Ear: Ear canal normal. Left Ear: Ear canal normal. There is impacted cerumen. Nose: Nose normal. Cardiovascular: Rate and Rhythm: Regular rhythm. Bradycardia present. Heart sounds: No gallop. Pulmonary: Effort: Pulmonary effort is normal. Breath sounds: Normal breath sounds. Abdominal: Palpations: Abdomen is soft. Musculoskeletal: Right lower leg: No edema. Left lower leg: No edema. Neurological: Mental Status: He is alert. Assessment and Plan 1. Essential hypertension - ICD9: 401.9, ICD10: I10 (primary diagnosis) - Controlled - Continue current medications 2. Mixed hyperlipidemia - ICD9: 272.2, ICD10: E78.2 - Controlled - Continue current medications - COMP METABOLIC PANEL - LIPID PANEL BASIC 3. Impacted cerumen, left ear - ICD9: 380.4, ICD10: H61.22 - Curette used to remove last fragment with success. - AMBULATORY EAR LAVAGE/IRRIGATION 4. Hearing loss, unspecified hearing loss type, unspecified laterality - ICD9: 389.9, ICD10: H91.90 He requested referral for hearing evaluation locally. - CONSULT TO ENT 5. Gastroesophageal reflux disease with esophagitis without hemorrhage - ICD9: 530.81, 530.10, ICD10: K21.[address] Lewis. - PANTOPRAZOLE 40 MG TABLET,DELAYED RELEASE 6. Esophageal dysphagia - ICD9: 787.29, ICD10: R13.19 See above. - PANTOPRAZOLE 40 MG TABLET,DELAYED RELEASE Prashanth Mcintyre MD documented in this encounter 10-16-2022 Note [facility] Medical Records Department [address] [facility] [place] [address] History Physical Exam 10/16/22 0710 MR#: [id number] Acct: [id number] Name: AIDEN ESTRADA CHECO Rep #: [id number] : 1955 66 From: Colt Lewis DO PCP: Dr. Prashanth Mcintyre MD Status:REG [facility] [place] Location: [place] [address] History and Physical Date of Admission: 10/16/22 6 M who presents to the office today to establish with gastroenterology for dysphagia began over a year ago.??? Food will stick in the mid to distal esophagus sometimes, he has to sit up straight and follow the food with lots of water.??? The food has always passed, no emergency visits for food bolus.??? Chicken and pasta are the primary culprits.??? He has never regurgitated to get this to pass.??? He never has nausea or vomiting.??? He never has heartburn or acid reflux.??? No pain other than discomfort when the food is stuck.??? No cough.??? No sense of esophageal spasms.??? No abdominal pain.??? No early satiety.??? Normal appetite.??? No weight loss.??? He has never been on medication for this dysphagia.??? He had a normal esophagram in April 2021.??? He has never had an EGD.??? No bowel complaints.??? He denies diarrhea, constipation, melena, hematochezia. Colonoscopy 01/2020, told to repeat in 5 years Past medical history hypertension, tubular adenoma of colon, remote history of kidney stones, essential tremor Past surgical history cataracts, tonsillectomy ROS Const Constitutional: No fatigue, fever(s), frequent falls, headache(s) or weight change ENT ENT: No headache(s) or difficulty swallowing Cardio Cardiology: No leg pain with exertion Gastro GI: No abdominal pain, bloating, change in bowel habits, constipation, diarrhea, heartburn, difficulty swallowing, Vomiting blood/hematemesis, Blood in stool, nausea/dyspepsia or vomiting Musc Musculoskeletal: No abnormal gait, joint pain, back pain, joint swelling, muscle cramps, muscle weakness, numbness, stiffness, tingling, Arthritis, sciatica, leg pain at night or leg pain with exertion Skin Skin: No dry skin, lesions, itchy eyes or rash Neuro Neurology: No abnormal gait, dizziness, frequent falls, headache(s), numbness, tingling, tremor(s), Increased tone in limbs, paralysis or seizures Psych Psychiatric: No anxiety, No depression, No paranoia, No Behavioral Problems, No Compulsive Behavior, No hyperactivity, No inattentiveness, No obsessions/compulsions, No Temper Tantrums and No suicidal ideation Endo Endocrine: No fatigue or weight change Aller/Imm Allergy/Immunologic: No itchy eyes Jonatan/Lymp Hematologic/Lymphatic: No easy bleeding or easy bruising Exam Const General: cooperative, healthy appearing and comfortable Nutritional Appearance: average body habitus Orientation: alert, awake and oriented x3 HENMT Head: normal to inspection Eyes Sclera: sclerae normal Neck Neck: normal visual inspection Chest Chest palpation inspection: normal inspection of the chest Resp Effort Inspection: normal respiratory effort GI Inspection: normal to inspection Neuro Speech: other (there is a tremor to his voice) Quality Reporting Tobacco Screening ([facility] 138) Smoking Status: Former smoker Assessment and Plan Assessment and Plan (1) Dysphagia: ?Plan: 66-year-old male with chronic dysphagia.??? He is scheduled for EGD to evaluate for esophagitis, Schatzki ring, malignancy or other.??? We discussed the possibility of starting a PPI now but since he has no symptoms other than the dysphagia, and it is stable, he prefers to wait.??? Follow-up 2 weeks after EGD. I have examined the patient and the H P has been reviewed. There are no clinical changes since date of exam. 10/16/22 0711 Cosigner Signature (if applicable): CC: Dr. Prashanth Mcintyre MD; Colt Friend, DO Signed [facility] 10-16-2022 Procedure note [facility] 10-16-2022 Procedure note [facility] 10-13-2022 Miscellaneous Notes Called [facility], RX was closed 09/30/2022, pharmacy needing new RX. Patient has been identified by name and date of : Yes Patient phones for refill(s): Requested Prescriptions Pending Prescriptions Disp Refills atorvastatin (LIPITOR) 20 mg tablet 90 tablet 3 Sig: Take 1 tablet by mouth daily at bedtime. For cholesterol. Date of last office visit in primary care: 07/29/2022 6 month follow-up: 11/18/2022 Last 2 Encounter Wt Readings: Date: Wt: 05/14/2022 87.5 kg (193 lb) 11/05/2021 85.6 kg (188 lb 12.8 oz) Previous labs/tests for medication: Cholesterol: HDL Cholesterol (mg/dL) Date Value 05/12/2022 46 01/28/2021 46 LDL Cholesterol (mg/dL) Date Value 05/12/2022 69 01/28/2021 73 ALT (U/L) Date Value 05/12/2022 25 01/28/2021 32 Non HDL Cholesterol (mg/dL) Date Value 05/12/2022 93 01/28/2021 97 Please advise. Thank you. Joann Rutledge LPN Patient has been identified by name and date of : Yes Requested Prescriptions Pending Prescriptions Disp Refills atorvastatin (LIPITOR) 20 mg tablet 90 tablet 3 Sig: Take 1 tablet by mouth daily at bedtime. For cholesterol. RX INSTRUCTIONS: Patient aware RX will be sent to pharmacy. No need to notify patient. Elidia [place]iris [facility] [place] encounter 05-22-2022 Miscellaneous Notes Pt called in and wanted to let the provider know that he had stopped taking his Cardura several months ago. He reported that it gave him abdominal and prostate discomfort. He forgot to let the provider know this at his last appointment. documented in this encounter 01-10-2022 Miscellaneous Notes Patient has been identified by name and date of : Yes Patient phones for refill(s): Pending Prescriptions Disp Refills ATORVASTATIN 20 MG TABLET 90 tablet 3 Sig: Take 1 tablet by mouth daily at bedtime. For cholesterol. MARCELA: No Date of last office visit in primary care: 11/05/2021 Last 2 Encounter Wt Readings: Date: Wt: 11/05/2021 85.6 kg (188 lb 12.8 oz) 05/02/2021 86.2 kg (190 lb) Previous labs/tests for medication: Cholesterol: HDL Cholesterol (mg/dL) Date Value 01/28/2021 46 LDL Cholesterol (mg/dL) Date Value 01/28/2021 73 ALT (U/L) Date Value 01/28/2021 32 Non HDL Cholesterol (mg/dL) Date Value 01/28/2021 97 Please advise. Thank you. Cammy Collins LPN Patient has been identified by name and date of : Yes Pending Prescriptions Disp Refills ATORVASTATIN 20 MG TABLET 90 tablet 3 Sig: Take 1 tablet by mouth daily at bedtime. For cholesterol. MARCELA: No RX INSTRUCTIONS: Patient aware RX will be sent to pharmacy. No need to notify patient. Jovanna Perez Pss documented in this encounter 05-27-2007 History of Past i llness Narrative Problem Noted Date Resolved Date Headache(784.0) 05/27/2007 04/05/2010 Overview: Migraines in his 20s (resolved after being prayed on with an annointing) CT 05-22-07 (Mosque): NL brain parenchyma, NL ventricles, no fluid or midline shift CT sinuses 12-07: mild thickening in ethmoid air cells and L maxillary sinus CT 12-07: age related atrophy, no hydroceph, normal sinuses, extensive carotid siphon calcifications RODRIGUEZ resolved as of 06-17-07: need to consider BP issues and caffeine withdrawal documented as of this encounter (statuses as of 01/10/2022) 12-13-2007 History of Past illness Narrative* Problem Noted Date Resolved Date Headache(784.0) 05/27/2007 04/05/2010 Overview: Migraines in his 20s (resolved after being prayed on with an annointing) CT 05-22-07 (Mosque): NL brain parenchyma, NL ventricles, no fluid or midline shift CT sinuses 12-07: mild thickening in ethmoid air cells and L maxillary sinus CT 12-07: age related atrophy, no hydroceph, normal sinuses, extensive carotid siphon calcifications RODRIGUEZ resolved as of 06-17-07: need to consider BP issues and caffeine withdrawal documented as of this encounter (statuses as of 05/23/2022) 12-13-2007 History of Past illness Narrative* Problem Noted Date Resolved Date Headache(784.0) 05/27/2007 04/05/2010 Overview: Migraines in his 20s (resolved after being prayed on with an annointing) CT 05-22-07 (Mosque): NL brain parenchyma, NL ventricles, no fluid or midline shift CT sinuses 12-07: mild thickening in ethmoid air cells and L maxillary sinus CT 12-07: age related atrophy, no hydroceph, normal sinuses, extensive carotid siphon calcifications RODRIGUEZ resolved as of 06-17-07: need to consider BP issues and caffeine withdrawal documented as of this encounter (statuses as of 10/13/2022) 12-13-2007 History of Past illness Narrative* Problem Noted Date Resolved Date Headache(784.0) 05/27/2007 04/05/2010 Overview: Migraines in his 20s (resolved after being prayed on with an annointing) CT 05-22-07 (Mosque): NL brain parenchyma, NL ventricles, no fluid or midline shift CT sinuses 12-07: mild thickening in ethmoid air cells and L maxillary sinus CT 12-07: age related atrophy, no hydroceph, normal sinuses, extensive carotid siphon calcifications RODRIGUEZ resolved as of 08: need to consider BP issues and caffeine withdrawal documented as of this encounter (statuses as of 11/19/2022) 12-13-2007 History of Past illness Narrative* Problem Noted Date Diagnosed Date Resolved Date Headache(784.0) 05/27/2007 04/05/2010 Overview: Migraines in his 20s (resolved after being prayed on with an annointing) CT 05-22-07 (Mosque): NL brain parenchyma, NL ventricles, no fluid or midline shift CT sinuses 12-07: mild thickening in ethmoid air cells and L maxillary sinus CT 12-07: age related atrophy, no hydroceph, normal sinuses, extensive carotid siphon calcifications RODRIGUEZ resolved as of 06-17-07: need to consider BP issues and caffeine withdrawal documented as of this encounter (statuses as of 05/22/2023) 12-13-2007 History of Past illness Narrative* Problem Noted Date Diagnosed Date Resolved Date Headache(784.0) 05/27/2007 04/05/2010 Overview: Migraines in his 20s (resolved after being prayed on with an annointing) CT 05-22-07 (Mosque): NL brain parenchyma, NL ventricles, no fluid or midline shift CT sinuses 12-07: mild thickening in ethmoid air cells and L maxillary sinus CT 12-07: age related atrophy, no hydroceph, normal sinuses, extensive carotid siphon calcifications RODRIGUEZ resolved as of 08: need to consider BP issues and caffeine withdrawal documented as of this encounter (statuses as of 05/25/2023) 12-13-2007 History of Past illness Narrative* Problem Noted Date Diagnosed Date Resolved Date Headache(784.0) 05/27/2007 04/05/2010 Overview: Migraines in his 20s (resolved after being prayed on with an annointing) CT 05-22-07 (Mosque): NL brain parenchyma, NL ventricles, no fluid or midline shift CT sinuses 05-21: mild thickening in ethmoid air cells and L maxillary sinus CT 05-21: age related atrophy, no hydroceph, normal sinuses, extensive carotid siphon calcifications RODRIGUEZ resolved as of 06-17-07: need to consider BP issues and caffeine withdrawal documented as of this encounter (statuses as of 08/13/2023) [facility] Diagnosis Mixed hyperlipidemia [facility] in this encounter [facility] noteNo assessment information [facility]WMem[facility] Work Phone: Evaluation note* Diagnosis Essential hypertension- Primary Unspecified essential hypertension Mixed hyperlipidemia Impacted cerumen, left ear Hearing loss, unspecified hearing loss type, unspecified laterality Gastroesophageal reflux disease with esophagitis without hemorrhage Esophageal dysphagia Dysphagia, pharyngoesophageal phase documented in this encounter [facility]* Diagnosis Medicare annual wellness visit, subsequent- Primary Routine general medical examination at a health care facility Encounter for immunization Need for other specified prophylactic vaccination against single bacterial disease Screening for prostate cancer Special screening for malignant neoplasm of prostate Encounter for screening for diabetes mellitus Screening for diabetes mellitus documented in this encounter [facility]* Diagnosis Colitis- Primary Other and unspecified noninfectious gastroenteritis and colitis documented in this encounter [facility] note* Diagnosis Colitis- Primary Other and unspecified noninfectious gastroenteritis and colitis Mixed hyperlipidemia Essential hypertension Unspecified essential hypertension Gastroesophageal reflux disease with esophagitis without hemorrhage Esophageal dysphagia Dysphagia, pharyngoesophageal phase Essential tremor Essential and other specified forms of tremor documented in this encounter [facility]* Diagnosis Medicare annual wellness visit, subsequent- Primary Routine general medical examination at a health care facility Essential hypertension Unspecified essential hypertension Gastroesophageal reflux disease with esophagitis without hemorrhage Mixed hyperlipidemia Impaired fasting glucose BPH with obstruction/lower urinary tract symptoms Hypertrophy of prostate with urinary obstruction and other lower urinary tract symptoms (LUTS) Essential tremor Essential and other specified forms of tremor Screening for depression Encounter for screening examination for other mental health and behavioral disorders Encounter for immunization Need for other specified prophylactic vaccination against single bacterial disease documented in this encounter Evaluation note* Diagnosis REEDER (dyspnea on exertion)- Primary Other dyspnea and respiratory abnormality Mixed hyperlipidemia Essential hypertension Unspecified essential hypertension Gastroesophageal reflux disease with esophagitis without hemorrhage Essential tremor Essential and other specified forms of tremor Special screening for malignant neoplasms, colon documented in this encounter Evaluation note* Diagnosis Special screening for malignant neoplasms, colon documented in this encounter Evaluation note* Diagnosis Tubular adenoma of colon- Primary Benign neoplasm of colon Hyperplastic colonic polyp, unspecified part of colon documented in this encounter History and physical note Author Colt Lewis [facility] October 16, 2022 7:11am Note Date/Time October 16, 2022 7:11am [facility] Medical Records Department [address] [place] [address] History & Physical Exam 10/16/22 0710 MR#: [id number] Acct: [id number] Name: AIDEN ESTRADA CHECO Rep #:[id number] : 1955 66 From: Colt Lewis DO PCP: Dr. Prashanth Mcintyre MD Status:R [facility] Location: [place] [address] History and Physical Date of Admission: 10/16/22 6 M who presents to the office today to establish with gastroenterology for dysphagia began over a year ago.? Food will stick in the mid to distal esophagussometimes, he has to sit up straight and follow the food with lots of water.? The food has always passed, no emergency visits for food bolus.? Chicken and pasta are the primary culprits.? He has never regurgitated to get this to pass.?He never has nausea or vomiting.? He never has heartburn or acid reflux.? No pain other than discomfort when the food is stuck.? No cough.? No sense of esophageal spasms.? No abdominal pain.? No early satiety.? Normal appetite.? No weight loss.? He has never been on medication for this dysphagia.? He had a normal esophagram in April 2021.? He has never had an EGD.? No bowel complaints.? He denies diarrhea, constipation, melena, hematochezia. Colonoscopy 01/2020, told to repeat in 5 years Past medical history hypertension, tubular adenoma of colon, remote history of kidney stones, essential tremor Past surgical history cataracts, tonsillectomy ROS Const Constitutional: No fatigue, fever(s), frequent falls, headache(s) or weight change ENT ENT: No headache(s) or difficulty swallowing Cardio Cardiology: No leg pain with exertion Gastro GI: No abdominal pain, bloating, change in bowel habits, constipation, diarrhea,heartburn, difficulty swallowing, Vomiting blood/hematemesis, Blood in stool, nausea/dyspepsia or vomiting Musc Musculoskeletal: No abnormal gait, joint pain, back pain, joint swelling, musclecramps, muscle weakness, numbness, stiffness, tingling, Arthritis, sciatica, legpain at night or leg pain with exertion Skin Skin: No dry skin, lesions, itchy eyes or rash Neuro Neurology: No abnormal gait, dizziness, frequent falls, headache(s), numbness, tingling, tremor(s), Increased tone in limbs, paralysis or seizures Psych Psychiatric: No anxiety, No depression, No paranoia, No Behavioral Problems, No Compulsive Behavior, No hyperactivity, No inattentiveness, No obsessions/compulsions, No Temper Tantrums and No suicidal ideation Endo Endocrine: No fatigue or weight change Aller/Imm Allergy/Immunologic: No itchy eyes Jonatan/Lymp Hematologic/Lymphatic: No easy bleeding or easy bruising Exam Const General: cooperative, healthy appearing and comfortable Nutritional Appearance: average body habitus Orientation: alert, awake and oriented x3 HENMT Head: normal to inspection Eyes Sclera: sclerae normal Neck Neck: normal visual inspection Chest Chest palpation & inspection: normal inspection of the chest Resp Effort & Inspection: normal respiratory effort GI Inspection: normal to inspection Neuro Speech: other (there is a tremor to his voice) Quality Reporting Tobacco Screening ([facility] 138) Smoking Status: Former smoker Assessment and Plan Assessment and Plan (1) Dysphagia: ?Plan: 66-year-old male with chronic dysphagia.? He is scheduled for EGD to evaluate for esophagitis, Schatzki ring, malignancy or other.? We discussed the possibility of starting a PPI now but since he has no symptoms other than the dysphagia, and it is stable, he prefers to wait.? Follow-up 2 weeks after EGD. I have examined the patient and the H&P has been reviewed. There are no clinicalchanges since date of exam. 10/16/22 0711 <Electronically signed by Colt Lewis DO> Cosigner Signature (if applicable): CC: Dr. Prashanth Mcintyre MD; Colt Lewis DO~ Signed [facility] Work Phone: Hospital Discharge instructions* Attachments The following attachments cannot be sent through Care Everywhere. * Colitis: General Info (Swedish) documented in this encounter[facility]HealthReason for visit Narrative* Outpatient Procedure (Routine) - Closed Specialty Diagnoses / Procedures Referred By Preethi brandt Referred To Contact [facility] Diagnoses Special screening for malignant neoplasms, colon Procedures COLONOSCOPY SCREENING COLONOSCOPY FLX DX W/COLLJ SPEC WHEN PFRMD Prashatnh Mcintyre MD [address] [place] [address] Phone: tel: fax: [facility] [address] [place] [address] Referral ID Status Reason Start Date Expiration Date V isits Requested Visits Authorized [id number] Closed Auto-Generate d Referral 12/13/2024 12/13/2025 1 1 Advance Directives No Advanced Directives Records FoundDocuments on File Type Date Recorded Patient Manager Land Expl anation Advance Directive(s) 02/10/2020 9:12 AM Advance Directive(s) 01/26/2020 1:00 PM Advance Directive Response Recorded Date/ Time Name of Medical Power of Machine Loader LYNDSEY ESTRADA October 13, 2022 3:48pm Living Will Yes October 13, 2022 3: 48pm Power of Machine Loader Yes October 13, 2022 3:48pm Date Activated Date Inactivated Comments 11/20/2023 6:44 PM 11/22/2023 11:59 AM Chief Complaint and Reason for Visit Chief Complaint Dysphagia Family History No Family History Records Found Relationship Condition Age at Onset Recorded Date/T neel mother Hypertension Unknown father Hypertension Unknown Malignant neoplasm of prostate Unknown brother Hypertension Unknown Diabetes mellitus Unknown Coronary artery disease Unknown Atrial fibrillation Unknown Uterine leiomyoma Unknown Summary Purpose Reason for Referral Specialty Diagnoses / Procedures Referred By Preethi brandt Referred To Contact Ent - Otolaryngology Diagnoses Hearing loss, unspecified hearing loss type, unspecified laterality Procedures CONSULT TO ENT Prashanth Mcintyre MD [address] [place] [address] Referral ID Status Reason Start Date Expiration Date Visits Requested Visits Authorized [id number] Ref Not Required PCP Requested Referral 11/18/2022 11/18/2023 1 1 Additional Source Comments Source Comments (unrecognize d section and content) In the event this informatio n is protected by the Federal Confidentiality of Alcohol and Drug Abuse Patient Records regulations: The Federal rules restrict any use of the information to criminally investigate or prosecute any alcohol or drug abuse patient.In the event this information is protected by the Federal Confidentiality of Alcohol and Drug Abuse Patient Records regulations: The Federal rules restrict any use of the information to criminally investigate or prosecute any alcohol or drug abuse patient.In the event this information is protected by the Federal Confidentiality of Alcohol and Drug Abuse Patient Records regulations: The Federal rules restrict any use of the information to criminally investigate or prosecute any alcohol or drug abuse patient.In the event this information is protected by the Federal Confidentiality of Alcohol and Drug Abuse Patient Records regulations: The Federal rules restrict any use of the information to criminally investigate or prosecute any alcohol or drug abuse patient.In the event this information is protected by the Federal Confidentiality of Alcohol and Drug Abuse Patient Records regulations: The Federal rules restrict any use of the information to criminally investigate or prosecute any alcohol or drug abuse patient.In the event this information is protected by the Federal Confidentiality of Alcohol and Drug Abuse Patient Records regulations: The Federal rules restrict any use of the information to criminally investigate or prosecute any alcohol or drug abuse patient.In the event this information is protected by the Federal Confidentiality of Alcohol and Drug Abuse Patient Records regulations: The Federal rules restrict any use of the information to criminally investigate or prosecute any alcohol or drug abuse patient.In the event this information is protected by the Federal Confidentiality of Alcohol and Drug Abuse Patient Records regulations: The Federal rules restrict any use of the information to criminally investigate or prosecute any alcohol or drug abuse patient.In the event this information is protected by the Federal Confidentiality of Alcohol and Drug Abuse Patient Records regulations: The Federal rules restrict any use of the information to criminally investigate or prosecute any alcohol or drug abuse patient.In the event this information is protected by the Federal Confidentiality of Alcohol and Drug Abuse Patient Records regulations: The Federal rules restrict any use of the information to criminally investigate or prosecute any alcohol or drug abuse patient.In the event this information is protected by the Federal Confidentiality of Alcohol and Drug Abuse Patient Records regulations: The Federal rules restrict any use of the information to criminally investigate or prosecute any alcohol or drug abuse patient.In the event this information is protected by the Federal Confidentiality of Alcohol and Drug Abuse Patient Records regulations: The Federal rules restrict any use of the information to criminally investigate or prosecute any alcohol or drug abuse patient.In the event this information is protected by the Federal Confidentiality of Alcohol and Drug Abuse Patient Records regulations: The Federal rules restrict any use of the information to criminally investigate or prosecute any alcohol or drug abuse patient.In the event this information is protected by the Federal Confidentiality of Alcohol and Drug Abuse Patient Records regulations: The Federal rules restrict any use of the information to criminally investigate or prosecute any alcohol or drug abuse patient. Reason for Visit (unrecogniz ed section and content) Reason Onset Date Comments Refill Request 01/10/2022 Reason Comments Medication Update Reason Comments Refill Request Reason Comments F/U 6 months Reason Comments Medicare Wellness Exam Reason Comments Results Reason Onset Date Comments Population Health Navigation Outreach 08/12/2023 [facility] AW[facility] Specialty Diagnoses / Procedures Referred By Contac t Referred To Contact Diagnoses Colitis Colitis Referral ID Status Reason Start Date Expiration Date Visits Re quested Visits Authorized [id number] 1 1 Reason Comments Hospital F/U Reason Comments F/U 6 months Reason Comments Follow Up Colonoscopy follow u p. Denies GI issues Care Teams (unrecognized sec tion and content) High School Professional Relationship Specialty Start Date End Date Prashanth Mcintyre MD [address] [place], [place] [id number] PCP - General 10/12/09 High School Professional Relationship Specialty Start Date End Date Prashanth Mcintyre MD [address] [place], [place] [id number] PCP - General 10/12/09 High School Professional Relationship Specialty Start Date End Date Prashanth Mcintyre MD [address] [place], [place] [id number] PCP - General 10/12/09 Team Status: Active Member Role Status Dates Dr. Prashanth Mcintyre MD Primary Care Provider Active Team Status: Inactive Member Role Status Dates Dr. Prashanth Mcintyre MD Primary Care Provider, Refer ring Provider Active Ivania Martinez MAGNETIC TAPE COMPOSER OPERATOR, MAGNETIC TAPE COMPOSER OPERATOR-C Attending Provider Active Team Status: Active Member Role Status Dates Dr. Prashanth Mcintyre MD Primary Care Provider Active Dr. Colt Lewis DO Attending Provid er, Referring Provider, Other Provider Active Team Status: Inactive Member Role Status Dates Dr. Prashanth Mcintyre MD Primary Care Provider Active Dr. Colt Lewis DO Attending Provider, Referring Provider Active High School Professional Relationship Specialty Start Date End Date Prashanth Mcintyre MD [address] [place], [place] [phone] PCP - General 10/12/09 High School Professional Relationship Specialty Start Date End Date Prashanth Mcintyre MD [address] [place], [place] [id number] PCP - General 10/12/09 High School Professional Relationship Specialty Start Date End Date Prashanth Mcintyre MD [address] [place] [address] PCP - General 10/12/09 High School Professional Relationship Specialty Start Date End Date Prashanth Mcintyre MD [address] [place] [address] PCP - General 10/12/09 High School Professional Relationship Specialty Start Date End Date Prashanth Mcintyre MD [address] [facility] [address] PCP - General Internal Medicine 04/02/23 High School Professional Relationship Specialty Start Date End Date Prashanth Mcintyre MD [address] [place] [address] PCP - General 10/12/09 High School Professional Relationship Specialty Start Date End Date Prashanth Mcintyre MD [address] [place] [address] PCP - General 10/12/09 Anna Cruz, EXTRUSION SUPERVISOR.LINE ASSEMBLER AIRCRAFT [address] [place] [address] Clarification Operator Internal Medicine 05/23/24 High School Professional Relationship Specialty Start Date End Date Prashanth Mcintyre MD [address] [place] [address] PCP - General 10/12/09 Anna Cruz, EXTRUSION SUPERVISOR.LINE ASSEMBLER AIRCRAFT [address] [place] [address] Clarification Operator Internal Medicine 05/23/24 High School Professional Relationship Specialty Start Date End Date Prashanth Mcintyre MD [address] [place] [address] PCP - General 10/12/09 Anna Cruz, EXTRUSION SUPERVISOR.LINE ASSEMBLER AIRCRAFT [address] [place] [address] Clarification Operator Internal Medicine 05/23/24 High School Professional Relationship Specialty Start Date End Date Prashanth Mcintyre MD [address] [place] [address] PCP - General 10/12/09 Anna Cruz, EXTRUSION SUPERVISOR.LINE ASSEMBLER AIRCRAFT [address] [place] [address] Clarification Operator Internal Medicine 05/23/24 High School Professional Relationship Specialty Start Date End Date Prashanth Mcintyre MD [address] [place] [address] PCP - General 10/12/09 Anna Cruz, EXTRUSION SUPERVISOR.LINE ASSEMBLER AIRCRAFT [address] [place] [address] Clarification Operator Internal Medicine 05/23/24 High School Professional Relationship Specialty Start Date End Date Prashanth Mcintyre MD [address] [place] [address] PCP - General 10/12/09 Anna Cruz, EXTRUSION SUPERVISOR.LINE ASSEMBLER AIRCRAFT [address] [place] [address] Clarification Operator Internal Medicine 05/23/24 (unrecognized sect ion and content) No Status Records FoundNo Status Records FoundNo Status Records FoundNo Status Records Found INFORMATION SOURCE (unrecogn ized section and content) DATE CREATED AUTHOR 10/29/2022 [facility] DATE CREATED AUTHOR AUTHOR'S ORGANIZ ATION 12/05/2023 [facility] DATE CREATED AUTHOR AUTHOR'S ORGANIZ ATION 12/05/2023 [facility] DATE CREATED AUTHOR AUTHOR'S ORGANIZ ATION 03/30/2025 [facility] Scheduled Active and Recently Administ ered Medications (unrecognized section and content) Medication Order 11/20/2023 11/21/2023 11/22/2023 atorvastatin (LIPITOR) tablet 20 mg 20 mg, Oral, Nightly, First dose on Thu11/21/23 at 2100 2037 (Given - Provider: Greg Garrido, WILLIAM) ciprofloxacin (CIPRO) IVPB 400 mg (premix) 400 mg, Intravenous, at 200 mL/hr, Every 12 hours, First dose on Thu11/20/23 at 2000, Indication: Community Acquired Intra-abdominal Infections 2150 (New Bag - Provider: Sabina Cazares RN)2250 (Stopped - Provider: Kailee Alas RN) 0859 (New Bag - Provider: Kailee Alas RN)0859 (Paused - Provider: Kailee Alas RN)0901 (Restarted - Provider: Kailee Alas RN)1001 (Stopped - Provider: Kailee Alas RN)2037 (New Bag - Provider: Greg Garrido RN)2138 (Rate/Dose Change - Provider: Greg Garrido RN)2143 (Stopped - Provider: Greg Garrido RN) 0826 (New Bag - Provider: Jamila Stanfodr RN)0919 (Stopped - Provider: Jamila Stanford RN) heparin (porcine) injection 5,000 Units 5,000 Units, Subcutaneous, Every 8 hours scheduled, First dose on Thu11/20/23 at 2200, Notify physician if patient refuses. 2150 (Given - Provider: Sabina Cazares RN) 0601 (Given - Provider: Sabina Cazares RN)1400 (Not Given - Provider: Kailee Alas RN - Reason: Medication not available)2200 (Not Given - Provider: Greg Garrido RN - Reason: Patient/family refused) 0600 (Not Given - Provider: Marisa Prescott RN - Reason: Patient/family refused) metroNIDAZOLE (FLAGYL) IVPB 500 mg 500 mg, Intravenous, at 200 mL/hr, Every 8 hours, First dose on Thu11/21/23 at 0000, DO NOT REFRIGERATE, Indication: High Risk or Severity Community or Hosp Acquired Intra-abdominal Infections 2340 (New Bag - Provider: Sabina Cazares RN) 0010 (Stopped - Provider: Kailee Alas RN)0900 (New Bag - Provider: Kailee Alas RN)0900 (Paused - Provider: Kailee Alas RN)0901 (Restarted - Provider: Kailee Alas RN)0931 (Stopped - Provider: Kailee Alas RN)1632 (New Bag - Provider: Kailee Alas RN)1635 (Rate/Dose Verify - Provider: Greg Garrido, RN)1705 (Stopped - Provider: Greg Garrido, RN)2358 (Associate Pump - Provider: Greg Garrido, RN)2359 (New Bag - Provider: Greg Garrido RN) 0203 (Stopped - Provider: Marisa Prescott, WILLIAM)0824 (New Bag - Provider: Jamila Stanford, RN)0919 (Stopped - Provider: Jamila Stanford, RN) sodium chloride (PF) (NS) flush 5 mL(Linked Group 1) 5 mL, Intravenous, Every 8 hours scheduled, First dose on Thu11/20/23 at 2200, Saline lock 2152 (Given - Provider: Sabina Cazares RN) 0601 (Given - Provider: Sabina Cazares RN)1400 (Canceled Entry - Provider: Kailee Alas RN)2145 (Given - Provider: Greg Garrido, RN) 0600 (Canceled Entry - Provider: Marisa Prescott, WILLIAM) Continuous Medication Order 11/20/2023 11/21/2023 11/22/2023 lactated Ringers infusion 100 mL/hr, Intravenous, Continuous, Starting on Thu11/20/23 at 1930 2148 (New Bag - Provider: Sabina Cazares RN)2149 (Paused - Provider: Greg Garrido RN)2149 (Restarted - Provider: Greg Garrido, RN)2150 (Paused - Provider: Greg Garrido RN)2250 (Restarted - Provider: Greg Garrido RN)2340 (Paused - Provider: Greg Garrido RN) 0010 (Restarted - Provider: Greg Garrido RN)0848 (Stopped - Provider: Greg Garrido RN)2145 (New Bag - Provider: Greg Garrido RN) 0000 (Rate/Dose Verify - Provider: Greg Garrido RN)0203 (Associate Pump - Provider: Marisa Prescott RN)0412 (Rate/Dose Verify - Provider: Marisa Prescott RN)0653 (Associate Pump - Provider: Marisa Prescott RN)0821 (New Bag - Provider: Jamila Stanford RN)0919 (Stopped - Provider: Jamila Stanford RN) PRN Medication Order 11/20/2023 11/21/2023 11/22/2023 ondansetron (ZOFRAN) injection 4 mg(Linked Group 2) 4 mg, Intravenous, Every 6 hours PRN, nausea, vomiting, Starting on Thu11/20/23 at 1843, Use oral route first, if tolerated. 2149 (See Alternative - Provider: Sabina Cazares RN) ondansetron (ZOFRAN-ODT) disintegrating tablet 4 mg(Linked Group 2) 4 mg, Oral, Every 6 hours PRN, nausea, vomiting, Starting on Thu11/20/23 at 1843, Use oral route first, if tolerated. Formulation requires tablet remain in sealed package until immediately prior to dose being administered. 2149 (Given - Provider: Sabina Cazares RN) sodium chloride (PF) (NS) flush 5 mL(Linked Group 1) 5 mL, Intravenous, As needed, line care, Starting on Thu11/20/23 at 1842 sodium chloride 0.9% (NS)(Linked Group 1) 0-150 mL/hr, Intravenous, As needed, To flush line after IV infusions when no maintenance IV ordered or a compatibility issue. Infuse 20ml at the same rate as the secondary infusion, Starting on Thu11/20/23 at 1842, Run as Primary IV. NOT intended for KVO. 0856 (New Bag - Provider: Kailee Alas RN)0856 (Paused - Provider: Kailee Alas, RN)0856 (Restarted - Provider: Kailee Alas RN)0856 (Paused - Provider: Kailee Alas RN)0859 (Paused - Provider: Kailee Alas RN)1001 (Restarted - Provider: Kailee Alas RN)1126 (Stopped - Provider: Kailee Alas RN) Linked Groups Order Group 1: Saline lock IV (CANCELED) Routine, Continuous, Starting on Thu11/20/23 at 1843, Until Specified And sodium chloride (PF) (NS) flush 5 mLJump to med 5 mL, Intravenous, As needed, line care, Starting on Thu11/20/23 at 1842 And sodium chloride (PF) (NS) flush 5 mLJump to med 5 mL, Intravenous, Every 8 hours scheduled, First dose on Thu11/20/23 at 2200, Saline lock And sodium chloride 0.9% (NS)Jump to med 0-150 mL/hr, Intravenous, As needed, To flush line after IV infusions when no maintenance IV ordered or a compatibility issue. Infuse 20ml at the same rate as the secondary infusion, Starting on Thu11/20/23 at 1842, Run as Primary IV. NOT intended for KVO. Group 2: ondansetron (ZOFRAN-ODT) disintegrating tablet 4 mgJump to med 4 mg, Oral, Every 6 hours PRN, nausea, vomiting, Starting on Thu11/20/23 at 1843, Use oral route first, if tolerated. Formulation requires tablet remain in sealed package until immediately prior to dose being administered. Or ondansetron (ZOFRAN) injection 4 mgJump to med 4 mg, Intravenous, Every 6 hours PRN, nausea, vomiting, Starting on Thu11/20/23 at 1843, Use oral route first, if tolerated. FOR RECORDS PERTAINING TO PATIENTS WHO ARE OR HAVE BEEN ENROLLED IN A CHEMICAL DEPENDENCY/SUBSTANCEABUSE PROGRAM, SOME INFORMATION MAY BE OMITTED. This clinical summary was aggregated from multiple sources. Caution should be exercised in using it in the provision of clinical care. This summary normalizes information from multiple sources, and as a consequence, information in this document may materially change the coding, format and clinical context of patient data. In addition, data may be omitted in some cases. CLINICAL DECISIONS SHOULD BE BASED ON THE PRIMARY CLINICAL RECORDS. [facility]. provides no warranty or guarantee of the accuracy or completeness of information in this document.
[2025-04-03 04:47] LABS: Color, Urine Yellow (Yellow); Glucose, Dipstick Normal (Normal); Ketone-Dipstick Negative (Negative); Leukocyte Esterase-Dipstick Negative /ul (Negative); Nitrite-Dipstick Negative (Negative); Occult Blood-Urine 10 /ul (Negative); Protein-Dipstick 30 mg/dl (Negative); Specific Gravity, Urine 1.010 (1.002-1.030); Urine Bilirubin Dipstick Negative (Negative)
[2025-04-03 04:54] LABS: Mucous, Urine 0 SEEN /hpf (<or=2+); Red Blood Cells-Urine 0 SEEN /hpf (0-5); Squamous Epithelial Cells - UA 0-5 SEEN /hpf (0-5)
[2025-04-03 05:02] VITALS: BP 135/92; PULSE 81; RESP 16; TEMP 36.7; O2SAT 100
== END 2025-04-03 05:03 | disposition home or self-care (01) ==
PROVIDERS: Emergency Provider Student in an Organized Health Care Education/Training Program; PCP Internal Medicine; Visit Provider Student in an Organized Health Care Education/Training Program
DX: K57.92 Diverticulitis of intestine, part unspecified, without perforation or abscess without bleeding (principal); I10 Essential (primary) hypertension; Z87.891 Personal history of nicotine dependence; E78.00 Pure hypercholesterolemia, unspecified; K29.70 Gastritis, unspecified, without bleeding; D72.829 Elevated white blood cell count, unspecified
CPT/HCPCS: 74177; 80053; 81001; 83690; 85025; 96374; 99283; Q9967; A4216